=== PATIENT | male | born 1970 | race Caucasian/White ===

== ENCOUNTER 2016-09-26 11:32 | Inpatient (IN) | payer OTHER ==
[~2016-09-26 11:32] MED LIST: CIPR500T2 PO; VENTAER INH; Z.0.NO CURRENT MEDS
[2016-09-26] MEDS ORDERED: MORPHINE SULFATE 8 MG/ML INJ ONE (11:36)
[2016-09-26] MEDS ORDERED: ONDANSETRON HCL 4 MG/2 ML VIAL ONE (11:36)
[2016-09-26 11:45] VITALS: O2SAT 100; O2SAT 99
[2016-09-26] MEDS ORDERED: PROPOFOL 200 MG/20 ML AMP ONE (11:47)
[2016-09-26] MEDS ORDERED: LACTATED RINGER'S 1000 ML INJ 1,000 ML IV ONE (12:00)
[2016-09-26] MEDS ORDERED: PROPOFOL 200 MG/20 ML AMP IV ONE (12:00)
[2016-09-26] MEDS ORDERED: ONDANSETRON HCL 4 MG/2 ML VIAL IV PUSH ONE (12:00)
[2016-09-26] MEDS ORDERED: SODIUM CHLOR 0.9% 250 ML INJ 250 ML IV ONE (12:00)
[2016-09-26] MEDS ORDERED: SODIUM CHLORID 0.9% 500 ML INJ 500 ML IV ONE (12:00)
[2016-09-26 12:02] LABS: AUTOMATED NEUTROPHIL # 4.1 TH/MM3 (1.8-7.7); BASOPHIL # 0.1 TH/MM3 (0-0.2); BASOPHIL % 0.9 % (0.0-2.0); EOSINOPHIL # 0.1 TH/MM3 (0-0.4); EOSINOPHIL % 1.9 % (0.0-4.0); HEMATOCRIT 41.3 % (39.0-51.0); HEMO FLAGS DIFF FINAL; LYMPH % 31.8 % (9.0-44.0); LYMPHOCYTE # 2.3 TH/MM3 (1.0-4.8); MEAN CORPUSCULAR HEMOGLOBIN 28.4 PG (27.0-34.0); MEAN CORPUSCULAR HGB CONC 34.2 % (32.0-36.0); MONO % 8.2 % (0.0-8.0); NEUT % 57.2 % (16.0-70.0); PLATELET COUNT 203 TH/MM3 (150-450); RED BLOOD COUNT 4.98 MIL/MM3 (4.50-5.90); WHITE BLOOD COUNT 7.2 TH/MM3 (4.0-11.0)
[2016-09-26 12:04] LABS: I-STAT POTASSIUM 4.1 MMOL/L (3.5-4.9)
[2016-09-26 12:06] LABS: APTT (PATIENT) 21.3 SEC (24.3-30.1); PROTHROMBIN TIME - PATIENT 10.9 SEC (9.8-11.6)
[2016-09-26] MEDS ORDERED: DIPHTH/TETANUS/ACEL PERTUSSIS (BOOSTER) 0.5 ML VIAL/PFS IM ONE (12:20)
--- NOTE | 2016-09-26 12:22 | RADRPT ---
EXAM DATE/TIME: 09/26/2016 11:56 [facility] COMPARISON: No previous studies available for comparison. INDICATIONS : Trauma alert; fall down stairs. RADIATION DOSE: 69.15 CTDIvol (mGy) MEDICAL HISTORY : Non-responsive. SURGICAL HISTORY : Non-responsive. ENCOUNTER: Initial ACUITY: 1 day PAIN SCALE: 7/10 LOCATION: cranial TECHNIQUE: Multiple contiguous axial images were obtained of the head. Using automated exposure control and adj ustment of the mA and/or kV according to patient size, radiation dose was kept as low as reasonably a chievable to obtain optimal diagnostic quality images. FINDINGS: CEREBRUM: The ventricles are normal for age. No evidence of midline shift, mass lesion, hemorrhage or acute in farction. No extra-axial fluid collections are seen. POSTERIOR FOSSA: The cerebellum and brainstem are intact. The 4th ventricle is midline. The cerebellopontine angle i s unremarkable. EXTRACRANIAL: The visualized portion of the orbits is intact. SKULL: The calvaria is intact. No evidence of skull fracture. CONCLUSION: No acute intra-cranial injury Gerardo Webber MD on September 26, 2016 at 12:20 Board Certified Radiologist. This report was verified electronically.
--- NOTE | 2016-09-26 12:27 | RADRPT ---
EXAM DATE/TIME: 09/26/2016 11:56 [facility] COMPARISON: No previous studies available for comparison. INDICATIONS : Trauma alert; fall down stairs. RADIATION DOSE: .35.80 CTDIvol (mGy) MEDICAL HISTORY : Non-responsive. SURGICAL HISTORY : Non-responsive. ENCOUNTER: Initial ACUITY: 1 day PAIN SCALE: 5/10 LOCATION: neck TECHNIQUE: Volumetric scanning of the cervical spine was performed. Multiplanar reconstructions in the sagittal, coronal and oblique axial planes were performed. Using automated exposure control and adjustment o f the mA and/or kV according to patient size, radiation dose was kept as low as reasonably achievable to obtain optimal diagnostic quality images. FINDINGS: The C2 and 3 vertebral bodies and posterior elements are fused on a developmental basis. The alignmen t is satisfactory. There is no evidence of fracture. No bony canal stenosis is identified. Mild degen erative changes present with small endplate osteophytes most notably at C6-7 level. There is a broad left paracentral disc protrusion at C5-6 with moderate effacement of left lateral recess. No evidence of paraspinal hematoma CONCLUSION: No evidence of acute bony injury in the cervical spine. Degenerative changes and disc disease as desc ribed Gerardo Webber MD on September 26, 2016 at 12:21 Board Certified Radiologist. This report was verified electronically.
--- NOTE | 2016-09-26 12:29 | RADRPT ---
EXAM DATE/TIME: 09/26/2016 11:27 [facility] COMPARISON: No previous studies available for comparison. INDICATIONS : Trauma alert. Fall down stairs today. MEDICAL HISTORY : Unobtainable SURGICAL HISTORY : Unobtainable ENCOUNTER: Initial ACUITY: 1 day PAIN SCORE: 10/10 LOCATION: Right elbow FINDINGS: Single projection examination of the right elbow reveals a moderately displaced and comminuted elbow fracture with displacement of an olecranon fragment dorsally and proximally relative to the remainder of the ulna and coronoid and other metaphyseal fragments displaced slightly in a volar direction. Th e status of the humeral articular surfaces and the proximal radius are undetermined from this single projection CONCLUSION: Comminuted elbow fracture incompletely evaluated with this single film Gerardo Webber MD on September 26, 2016 at 12:26 Board Certified Radiologist. This report was verified electronically.
[2016-09-26] MEDS ORDERED: PROPOFOL 500 MG/50 ML IV ONE (12:30)
[2016-09-26] MEDS ORDERED: MORPHINE SULFATE 8 MG/ML INJ IV PUSH ONE (12:30)
--- NOTE | 2016-09-26 12:31 | RADRPT ---
EXAM DATE/TIME: 09/26/2016 11:27 [facility] COMPARISON: No previous studies available for comparison. INDICATIONS : Trauma alert. Fall down stairs today. MEDICAL HISTORY : Unobtainable SURGICAL HISTORY : Unobtainable ENCOUNTER: Initial ACUITY: 1 day PAIN SCORE: Non-responsive. LOCATION: Left shoulder FINDINGS: Examination of the left shoulder demonstrates no evidence of fracture or dislocation.. Bone minerali zation is normal. The acromioclavicular joint is intact. No foreign body is identified. CONCLUSION: Unremarkable single view examination of the left shoulder. Gerardo Webber MD on September 26, 2016 at 12:28 Board Certified Radiologist. This report was verified electronically.
--- NOTE | 2016-09-26 12:31 | PD ---
HPI Chief Complaint: trauma alert Time Seen by Provider: 12:11 Travel History International Travel<30 days: No Contact w/Intl Traveler<30days: No Traveled to known affect area: No History of Present Illness HPI The patient is a male who is approximately in his 40s, presents to the emergency department as a trauma alert. 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 EMS states the patient stilts for approximate 3 feet high and he fell down a stairwell that was approximately 10 feet in length and then was "pinned" against the wall. The patient complained of bilateral elbow pain and back pain. EMS states initially the patient had a priapism, however, air 1 states the patient did not have a priapism when they arrived. The patient does complain of bilateral elbow pain as well as low back pain, he denies any head pain or neck pain. He is able to move all 4 extremities, but has significant pain with movement of the upper extremities. The patient denies any chronic medical problems, medications, allergies, or surgeries. The patient denies any loss of consciousness with the fall and states he remembers falling. [facility] Past Medical History Medical History: Denies Significant Hx Past Surgical History Surgical History: No Previous Surgery Social History Alcohol Use: No Tobacco Use: No Substance Use: No Allergies-Medications (Allergen,Severity, Reaction): Coded Allergies: No Known Allergies (Unverified , 09/26/16) Review of Systems Except as stated in HPI: all other systems reviewed are Neg HENT: Positive: Neck Pain, No: Headaches Cardiovascular: No: Chest Pain or Discomfort Respiratory: No: Shortness of Breath Gastrointestinal: No: Nausea, Vomiting, Abdominal Pain Musculoskeletal: Positive: Pain Neurologic: No: Headache, Change in Mentation Physical Exam Narrative GENERAL: Approximately 42-year-old male who presents emergency department on a backboard with cervical collar in place. SKIN: Warm and dry. HEAD: Atraumatic. Normocephalic. EYES: Pupils equal and round. 3 mm bilateral and reactive. EOMs are intact. ENT: No nasal bleeding or discharge. Mucous membranes pink and moist. NECK: Trachea midline. No JVD. Cervical collar in place. CARDIOVASCULAR: Regular rate and rhythm. No murmur appreciated. Heart rate in the 80s. RESPIRATORY: No accessory muscle use. Clear to auscultation. Breath sounds equal bilaterally. GASTROINTESTINAL: Abdomen soft, non-tender, nondistended. No rebound tenderness. MUSCULOSKELETAL: Edema and swelling of the right elbow with tenderness. Patient is unable to extend the right elbow. Positive right radial pulse. Left elbow is tender, unable to flex completely, unable to extend secondary to pain. Positive left radial pulse. Patient is able to move the fingers of both hands. Patient is able to move his feet bilaterally. Back: Positive rectal temperature Dr. Packer. Mild tenderness the midline of the back. NEUROLOGICAL: Awake and alert. No obvious cranial nerve deficits. Motor grossly within normal limits. Normal speech. Sensation is intact to lower extremities bilaterally. Sensation is intact to soft touch she upper extremities. PSYCHIATRIC: Appropriate mood and affect; insight and judgment normal. Data Data Last Documented VS Vital Signs Date Time Temp Pulse Resp B/P Pulse Ox O2 Delivery O2 Flow Rate FiO2 09/26/16 11:45 99 Nasal Cannula 4.00 Orders Morphine Inj (Morphine Inj) (09/26/16 11:36) Ondansetron Inj (Zofran Inj) (09/26/16 11:36) Fentanyl Inj (Fentanyl Inj) (09/26/16 11:44) Propofol 200 Mg/20 Ml Inj (Diprivan 200 (09/26/16 11:47) I-Stat Profile (09/26/16 11:39) I-Stat Creatinine (09/26/16 11:39) Complete Blood Count With Diff (09/26/16 11:39) Prothrombin Time / Inr (Pt) (09/26/16 11:39) Act Partial Throm Time (Ptt) (09/26/16 11:39) Type And Screen (09/26/16 11:39) Chest, Single Ap (09/26/16 11:39) Pelvis, Ap Only (Routine) (09/26/16 11:39) Ct Brain W/O Iv Contrast(Rout) (09/26/16 11:39) Ct Cerv Spine W/O Contrast (09/26/16 11:39) Ct Abd/Pel W Iv Contrast(Rout) (09/26/16 11:39) Ct Thorax/ Chest W Iv Contrast (09/26/16 11:39) Ct Thor Spine W/O Contrast (09/26/16 11:39) Ct Lumb Spine W/O Contrast (09/26/16 11:39) Iv Access Insert/Monitor (09/26/16 11:39) Ecg Monitoring (09/26/16 11:39) Oximetry (09/26/16 11:39) Oxygen Administration (09/26/16 11:39) Elbow, Limited (Ap&Lat) (09/26/16 ) Shoulder, One View (09/26/16 ) Elbow, One View (09/26/16 ) Humerus, One View (09/26/16 ) Elbow, One View (09/26/16 ) Gtlv-Fau-Muplgp (Booster) Inj (Boostrix (09/26/16 12:20) Morphine Inj (Morphine Inj) (09/26/16 12:30) Sodium Chlor 0.9% 1000 Ml Inj (Ns 1000 M (09/26/16 13:00) Propofol 500 Mg/50 Ml Inj (Diprivan 500 (09/26/16 12:30) Fentanyl Inj (Fentanyl Inj) (09/26/16 12:30) Labs Laboratory Tests Test 09/26/16 11:40 White Blood Count 7.2 TH/MM3 Red Blood Count 4.98 MIL/MM3 Hemoglobin 14.1 GM/DL Bedside Hemoglobin 14.6 G/DL Hematocrit 41.3 % Bedside Hematocrit 43.0 % Mean Corpuscular Volume 83.0 FL Mean Corpuscular Hemoglobin 28.4 PG Mean Corpuscular Hemoglobin 34.2 % Concent Red Cell Distribution Width 13.0 % Platelet Count 203 TH/MM3 Mean Platelet Volume 9.1 FL Neutrophils (%) (Auto) 57.2 % Lymphocytes (%) (Auto) 31.8 % Monocytes (%) (Auto) 8.2 % Eosinophils (%) (Auto) 1.9 % Basophils (%) (Auto) 0.9 % Neutrophils # (Auto) 4.1 TH/MM3 Lymphocytes # (Auto) 2.3 TH/MM3 Monocytes # (Auto) 0.6 TH/MM3 Eosinophils # (Auto) 0.1 TH/MM3 Basophils # (Auto) 0.1 TH/MM3 CBC Comment DIFF FINAL Differential Comment Prothrombin Time 10.9 SEC Prothromb Time International 1.0 RATIO Ratio Activated Partial 21.3 SEC Thromboplast Time Bedside Sodium 138 MMOL/L Bedside Potassium 4.1 MMOL/L Bedside Chloride 98 MMOL/L Bedside Blood Urea Nitrogen 19 MG/DL Bedside Creatinine 0.8 MG/DL Bedside Glucose 280 MG/DL Blood Type B POSITIVE Antibody Screen NEGATIVE MDM Medical Screen Exam Complete: Yes Emergency Medical Condition: Yes Medical Record Reviewed: Yes (Gerardo Don unable to evaluate any old records) EKG Prior to Arrival: No Interpretation(s) Laboratory Tests Test 09/26/16 11:40 White Blood Count 7.2 TH/MM3 Red Blood Count 4.98 MIL/MM3 Hemoglobin 14.1 GM/DL Bedside Hemoglobin 14.6 G/DL Hematocrit 41.3 % Bedside Hematocrit 43.0 % Mean Corpuscular Volume 83.0 FL Mean Corpuscular Hemoglobin 28.4 PG Mean Corpuscular Hemoglobin 34.2 % Concent Red Cell Distribution Width 13.0 % Platelet Count 203 TH/MM3 Mean Platelet Volume 9.1 FL Neutrophils (%) (Auto) 57.2 % Lymphocytes (%) (Auto) 31.8 % Monocytes (%) (Auto) 8.2 % Eosinophils (%) (Auto) 1.9 % Basophils (%) (Auto) 0.9 % Neutrophils # (Auto) 4.1 TH/MM3 Lymphocytes # (Auto) 2.3 TH/MM3 Monocytes # (Auto) 0.6 TH/MM3 Eosinophils # (Auto) 0.1 TH/MM3 Basophils # (Auto) 0.1 TH/MM3 CBC Comment DIFF FINAL Differential Comment Prothrombin Time 10.9 SEC Prothromb Time International 1.0 RATIO Ratio Activated Partial 21.3 SEC Thromboplast Time Bedside Sodium 138 MMOL/L Bedside Potassium 4.1 MMOL/L Bedside Chloride 98 MMOL/L Bedside Blood Urea Nitrogen 19 MG/DL Bedside Creatinine 0.8 MG/DL Bedside Glucose 280 MG/DL Blood Type B POSITIVE X-ray left elbow reveals dislocation with radial head fracture X-ray right elbow reveals olecranon fracture Chest x-ray unremarkable CT the brain negative CT cervical spine unremarkable CT thoracic spine unremarkable CT lumbar spine unremarkable x-ray CT thorax negative for acute trauma CT abdomen and pelvis negative for acute trauma Differential Diagnosis Differential diagnosis includes multisystem trauma, right elbow fracture, left elbow fracture, dislocation, contusion, spinal cord injury, cervical fracture, vertebral fracture, intracranial hemorrhage, concussion, closed head injury. Narrative Course ATLS protocol was followed. The trauma surgeon, Dr. Packer, was present when the patient arrived. The patient's airway, breathing, and circulation were intact. 2 large-bore IVs were established, labs are drawn and sent, and the patient was placed on cardiac telemetry monitoring and continuous pulse oximetry monitoring. IV fluids were started, the patient was administered morphine and Zofran for his symptoms. Chest x-ray, pelvis x-ray, left shoulder x-ray, bilateral elbow x-rays were obtained. The patient had a partial dislocation/subluxation the left elbow which was reduced with conscious sedation and a long arm splint was applied. The right elbow was also fracture, a right long-arm splint was applied. Positive radial pulses after splinting and reduction. Chest x-ray was unremarkable. Pelvis x-ray was unremarkable. The patient was readministered morphine and fentanyl for continuing pain. The patient then went to the CT suite with Dr. Packer for CT the brain, cervical spine, thorax, abdomen/pelvis, thoracic spine, and lumbar spine. The patient will be admitted to the trauma service. A call was placed the on-call orthopedist. Trauma Alert - Level One Trauma Alert Level One: Full trauma team activate Time Surgeon Summoned: 10:43 Physician Communication The patient will be admitted to the trauma service. A call was placed to the on -call orthopedist. Diagnosis Diagnosis: Primary Impression: Elbow fracture, right Qualified Code: S42.401A - Elbow fracture, right, closed, initial encounter Additional Impression: Left elbow fracture Qualified Code: S42.402A - Left elbow fracture, closed, initial encounter Admitting Physician Requests: Admit Condition: Stable Jesse Jacobson MD Sep 26, 2016 12:31
--- NOTE | 2016-09-26 12:31 | RADRPT ---
EXAM DATE/TIME: 09/26/2016 11:59 [facility] COMPARISON: No previous studies available for comparison. INDICATIONS : Trauma alert; fall down stairs. IV CONTRAST: 100 cc Omnipaque 350 (iohexol) IV ORAL CONTRAST: No oral contrast ingested. RADIATION DOSE: 11.42 CTDIvol (mGy) MEDICAL HISTORY : Non-responsive. SURGICAL HISTORY : Non-responsive. ENCOUNTER: Initial ACUITY: 1 day PAIN SCALE: 5/10 LOCATION: abdomen TECHNIQUE: Volumetric scanning of the abdomen and pelvis was performed. Using automated exposure control and ad justment of the mA and/or kV according to patient size, radiation dose was kept as low as reasonably achievable to obtain optimal diagnostic quality images. FINDINGS: LOWER LUNGS: The visualized lower lungs are clear. LIVER: Homogeneous density without lesion. There is no dilation of the biliary tree. No calcified gallston es. SPLEEN: Normal size without lesion. PANCREAS: Within normal limits. KIDNEYS: Normal in size and shape. There is no mass, stone or hydronephrosis. ADRENAL GLANDS: Within normal limits. VASCULAR: There is no aortic aneurysm. BOWEL/MESENTERY: The stomach, small bowel, and colon demonstrate no acute abnormality. There is no free intraperitone al air or fluid. ABDOMINAL WALL: Within normal limits. RETROPERITONEUM: There is no lymphadenopathy. BLADDER: No wall thickening or mass. REPRODUCTIVE: Within normal limits. INGUINAL: There is no lymphadenopathy or hernia. MUSCULOSKELETAL: Within normal limits for patient age. CONCLUSION: Normal examination. Davie Ferrell MD on September 26, 2016 at 12:29 Board Certified Radiologist. This report was verified electronically.
--- NOTE | 2016-09-26 12:34 | RADRPT ---
EXAM DATE/TIME: 09/26/2016 11:27 [facility] COMPARISON: No previous studies available for comparison. INDICATIONS : Chest pain. Trauma alert. Fall down stairs today MEDICAL HISTORY : Unobtainable SURGICAL HISTORY : Unobtainable ENCOUNTER: Initial ACUITY: 1 day PAIN SCORE: Non-responsive. LOCATION: Bilateral chest FINDINGS: A single view of the chest demonstrates the lungs to be symmetrically aerated without evidence of mas s, infiltrate or effusion. The cardiomediastinal contours are unremarkable. Osseous structures are intact. CONCLUSION: Normal examination. Davie Ferrell MD on September 26, 2016 at 12:27 Board Certified Radiologist. This report was verified electronically.
--- NOTE | 2016-09-26 12:36 | RADRPT ---
EXAM DATE/TIME: 09/26/2016 11:59 [facility] COMPARISON: No previous studies available for comparison. INDICATIONS : Trauma alert; fall down stairs. RADIATION DOSE: ; Reconstructed from previous dataset MEDICAL HISTORY : Non-responsive. SURGICAL HISTORY : Non-responsive. ENCOUNTER: Initial ACUITY: 1 day PAIN SCALE: 7/10 LOCATION: Bilateral Lumbar. TECHNIQUE: Volumetric scanning of the lumbar spine was performed. Multiplanar reconstructions in the sagittal, coronal and oblique axial planes were performed. Using automated exposure control and adjustment of the mA and/or kV according to patient size, radiation dose was kept as low as reasonably achievable t o obtain optimal diagnostic quality images. FINDINGS: VERTEBRAE: Normal vertebral body height. ALIGNMENT: No evidence of subluxation. T12-L1: The thecal sac has a normal diameter. No evidence of disc bulge or protrusion. The neural foramina are patent bilaterally. L1-L2: The thecal sac has a normal diameter. No evidence of disc bulge or protrusion. The neural foramina are patent bilaterally. L2-L3: The thecal sac has a normal diameter. No evidence of disc bulge or protrusion. The neural foramina are patent bilaterally. L3-L4: The thecal sac has a normal diameter. No evidence of disc bulge or protrusion. The neural foramina are patent bilaterally. L4-L5: The thecal sac has a normal diameter. No evidence of disc bulge or protrusion. The neural foramina are patent bilaterally. L5-S1: The thecal sac has a normal diameter. No evidence of disc bulge or protrusion. The neural foramina are patent bilaterally. CONCLUSION: Normal examination. Davie Ferrell MD on September 26, 2016 at 12:34 Board Certified Radiologist. This report was verified electronically.
--- NOTE | 2016-09-26 12:38 | RADRPT ---
EXAM DATE/TIME: 09/26/2016 12:01 [facility] COMPARISON: No previous studies available for comparison. INDICATIONS : Trauma alert; fall down stairs. IV CONTRAST: 100 cc Omnipaque 350 (iohexol) IV RADIATION DOSE: 11.42 CTDIvol (mGy) MEDICAL HISTORY : Non-responsive. SURGICAL HISTORY : Non-responsive. ENCOUNTER: Initial ACUITY: 1 day PAIN SCALE: 5/10 LOCATION: chest TECHNIQUE: Volumetric scanning of the chest was performed. Using automated exposure control and adjustment of t he mA and/or kV according to patient size, radiation dose was kept as low as reasonably achievable to obtain optimal diagnostic quality images. FINDINGS: LUNGS: There is no consolidation or pneumothorax. No concerning pulmonary nodule is visualized. PLEURA: There is no pleural thickening or pleural effusion. MEDIASTINUM: The heart and great vessels demonstrate no acute abnormality. There is no mediastinal or hilar lymph adenopathy. AXILLAE: Within normal limits. No lymphadenopathy. SKELETAL: Within normal limits for patient age. MISCELLANEOUS: The visualized upper abdominal organs demonstrate no acute abnormality. CONCLUSION: Normal examination. Davie Ferrell MD on September 26, 2016 at 12:37 Board Certified Radiologist. This report was verified electronically.
--- NOTE | 2016-09-26 12:41 | RADRPT ---
EXAM DATE/TIME: 09/26/2016 11:27 [facility] COMPARISON: No previous studies available for comparison. INDICATIONS : Trauma alert. Patient fell down stairs today MEDICAL HISTORY : Unobtainable SURGICAL HISTORY : Unobtainable ENCOUNTER: Initial ACUITY: 1 day PAIN SCORE: Non-responsive. LOCATION: Pelvis FINDINGS: A single frontal view of the pelvis demonstrates no evidence of fracture. The bony pelvic ring is in tact. Bony mineralization is normal. The soft tissues are intact. CONCLUSION: Unremarkable examination of the pelvis. Davie Ferrell MD on September 26, 2016 at 12:40 Board Certified Radiologist. This report was verified electronically.
--- NOTE | 2016-09-26 12:41 | RADRPT ---
EXAM DATE/TIME: 09/26/2016 11:27 [facility] COMPARISON: No previous studies available for comparison. INDICATIONS : Trauma alert. Fall down stairs today. Elbow pain. MEDICAL HISTORY : Unobtainable SURGICAL HISTORY : Unobtainable ENCOUNTER: Initial ACUITY: 1 day PAIN SCORE: Non-responsive. LOCATION: Left elbow FINDINGS & CONCLUSION: Two view examination of the left elbow demonstrates the humerus is anteriorly displaced from the olec ranon. There is a markedly comminuted radial fracture involving the radial head. The radial head is posteriorly displaced from the capitellum. There is a large joint effusion. Davie Ferrell MD on September 26, 2016 at 12:38 Board Certified Radiologist. This report was verified electronically.
--- NOTE | 2016-09-26 12:42 | RADRPT ---
EXAM DATE/TIME: 09/26/2016 11:27 [facility] COMPARISON: No previous studies available for comparison. INDICATIONS : Trauma alert. Fall down stairs today MEDICAL HISTORY : Unobtainable SURGICAL HISTORY : Unobtainable ENCOUNTER: Initial ACUITY: 1 day PAIN SCORE: Non-responsive. LOCATION: Left humerus FINDINGS & CONCLUSION: Single view of the left humerus demonstrates the humerus is intact. The radial head is laterally sub luxed from the capitellum. Humeral head and neck are unremarkable. Davie Ferrell MD on September 26, 2016 at 12:39 Board Certified Radiologist. This report was verified electronically.
--- NOTE | 2016-09-26 12:43 | RADRPT ---
EXAM DATE/TIME: 09/26/2016 11:27 [facility] COMPARISON: No previous studies available for comparison. INDICATIONS : Post reduction left elbow. MEDICAL HISTORY : Unobtainable SURGICAL HISTORY : Unobtainable ENCOUNTER: Initial ACUITY: 1 day PAIN SCORE: Non-responsive. LOCATION: Left elbow FINDINGS & CONCLUSION: Single view of the left elbow demonstrates there is a radial head fracture. There is some widening b etween the distal humerus and the olecranon. There is a large joint effusion. The radial head fract ure is markedly comminuted. Davie Ferrell MD on September 26, 2016 at 12:38 Board Certified Radiologist. This report was verified electronically.
--- NOTE | 2016-09-26 12:43 | RADRPT ---
EXAM DATE/TIME: 09/26/2016 11:59 [facility] COMPARISON: No previous studies available for comparison. INDICATIONS : Trauma alert; fall down stairs. RADIATION DOSE: ; Reconstructed from previous dataset MEDICAL HISTORY : Non-responsive. SURGICAL HISTORY : Non-responsive. ENCOUNTER: Initial ACUITY: 1 day PAIN SCALE: 7/10 LOCATION: Bilateral thoracic. TECHNIQUE: Volumetric scanning of the thoracic spine was performed. Multiplanar reconstructions in the sagittal , coronal and oblique axial planes were performed. Using automated exposure control and adjustment o f the mA and/or kV according to patient size, radiation dose was kept as low as reasonably achievable to obtain optimal diagnostic quality images. FINDINGS: The vertebral bodies of the thoracic spine are in normal alignment without evidence of subluxation. Vertebral body height is maintained. No fractures are seen. T1-T2: Normal. T2-T3: The thecal sac has a normal diameter. No evidence of disc bulge or protrusion. T3-T4: The thecal sac has a normal diameter. No evidence of disc bulge or protrusion. T4-T5: The thecal sac has a normal diameter. No evidence of disc bulge or protrusion. T5-T6: The thecal sac has a normal diameter. No evidence of disc bulge or protrusion. T6-T7: The thecal sac has a normal diameter. No evidence of disc bulge or protrusion. T7-T8: The thecal sac has a normal diameter. No evidence of disc bulge or protrusion. T8-T9: The thecal sac has a normal diameter. No evidence of disc bulge or protrusion. T9-T10: The thecal sac has a normal diameter. No evidence of disc bulge or protrusion. T10-T11: The thecal sac has a normal diameter. No evidence of disc bulge or protrusion. T11-T12: The thecal sac has a normal diameter. No evidence of disc bulge or protrusion. T12-L1: The thecal sac has a normal diameter. No evidence of disc bulge or protrusion. CONCLUSION: Normal examination. Davie Ferrell MD on September 26, 2016 at 12:41 Board Certified Radiologist. This report was verified electronically.
[2016-09-26] MEDS ORDERED: SODIUM CHLOR 0.9% 1000 ML INJ 1,000 ML IV SCH ×2 (13:00→15:00)
[2016-09-26 13:30] VITALS: BP 168/85; PULSE 78; RESP 16; O2SAT 99
[2016-09-26] MEDS ORDERED: MISCELLANEOUS NURSING INFORMATION XX SCH (14:00)
[2016-09-26] MEDS ORDERED: CHLORHEXIDINE GLUCONATE 2 % 1 PACK (2 CLOTHS) TOP PRN (14:00)
[2016-09-26] MEDS ORDERED: SODIUM CHLORIDE 0.9% FLUSH 5 ML FLUSH IVF PRN (14:00)
[2016-09-26 14:50] VITALS: BP 168/76; PULSE 84; RESP 16; TEMP 99.5; O2SAT 100
[2016-09-26] MEDS ORDERED: PANTOPRAZOLE SODIUM 40 MG VIAL IVP SCH (15:00)
[2016-09-26] MEDS ORDERED: ONDANSETRON HCL 4 MG/2 ML VIAL IV PRN (15:00)
[2016-09-26] MEDS ORDERED: VANCOMYCIN HCL 1000 MG VIAL ONE (16:45)
[2016-09-26] MEDS ORDERED: ceFAZolin 2 GM PREMIX 50 ML ONE (16:45)
[2016-09-26] MEDS ORDERED: GENTAMICIN SULFATE 80 MG/2 ML VIAL ONE ×2 (16:59→20:25)
[2016-09-26] MEDS ORDERED: fentaNYL CITRATE 250 MCG/5 ML AMP ONE ×2 (20:05)
--- NOTE | 2016-09-26 20:24 | MH ---
cc: YULIA YOUNGER DATE OF ADMISSION: 09/26/2016 REASON FOR ADMISSION: Trauma alert, fall, extremity fracture. 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 The patient was brought in as a trauma alert secondary to extremity deformities and the possibility of neurological involvement. The patient came in on a backboard and with a cervical collar immobilized and complaining of pain to his upper extremities. He also complains of pain to his back. He denies chest pain, shortness of breath. No loss of consciousness. No paresthesia. PAST MEDICAL HISTORY: Negative. PAST SURGICAL HISTORY Negative. MEDICATIONS: He is on no chronic medication. ALLERGIES: NO KNOWN DRUG ALLERGIES. SOCIAL HISTORY: He does not smoke or drink alcohol. FAMILY HISTORY Noncontributory. REVIEW OF SYSTEMS: His review of systems is significant for above. All other 10-point review negative. PHYSICAL EXAMINATION: GENERAL: On exam the patient is lying on a stretcher in distress secondary to pain. HEAD, EYES, EARS, NOSE, THROAT: His pupils are three equal and reactive. NECK: Trachea is midline. His neck is in a cervical collar. Neck nontender. LUNGS: Respirations clear. CARDIOVASCULAR: Regular. GASTROINTESTINAL: Abdomen soft and nontender. MUSCULOSKELETAL: He has tenderness over his right elbow with swelling. He has tenderness to his left forearm and tenderness to his left elbow with swelling. NEUROLOGIC: Grossly intact. BACK: No step-offs. No deformities. RECTAL: Good tone. No gross blood. LABORATORY DATA: The patient's hemoglobin is 14, hematocrit 43. IMAGING STUDIES: CT of the head is negative. CT of the C-spine shows no fractures. CT of the thorax negative. CT of the abdomen and pelvis: No visceral injury. CT of the thoracic spine: No fractures. CT of the lumbar spine: No fracture. Left elbow revealed a complex fracture. Right elbow reveals a complex fracture. ASSESSMENT: This is a patient who is status post fall with upper extremity injuries. Orthopedics has been consulted for this. He will be taken to the operating room for management. Following this, he will be managed on the medical/surgical unit. Will monitor his hemodynamics, provide pain management and monitor his neurological status. MD JEANMARIE Dumas/[place] /7:46 PM /8:09 PM
[2016-09-26] MEDS: DOCUSATE SODIUM 100 MG CAP PO SCH (21:00)
[2016-09-26] MEDS: BACITRACIN TOP OINT 15 GM TUBE TOP SCH (21:00)
--- NOTE | 2016-09-26 22:56 | RADRPT ---
EXAM DATE/TIME: 09/26/2016 22:14 [facility] COMPARISON: No previous studies available for comparison. INDICATIONS : Open reduction internal fixation of the right elbow. MEDICAL HISTORY : None. SURGICAL HISTORY : None. ENCOUNTER: Subsequent ACUITY: 1 day PAIN SCORE: Non-responsive. LOCATION: Right elbow. FINDINGS: Plate is seen bridging the olecranon fracture. Cortical lag screws are seen bridging the fracture th e radial head. Alignment is near-anatomic. CONCLUSION: Status post ORIF in reasonable alignment. Mikey Maria MD FACR on September 26, 2016 at 22:54 Board Certified Radiologist. This report was verified electronically.
--- NOTE | 2016-09-26 23:00 | RADRPT ---
EXAM DATE/TIME: 09/26/2016 19:54 [facility] COMPARISON: ELBOW LEFT LIMITED (AP & LAT), September 26, 2016, 11:27. INDICATIONS : Open reduction internal fixation of the left elbow. MEDICAL HISTORY : None. SURGICAL HISTORY : None. ENCOUNTER: Subsequent ACUITY: 1 day PAIN SCORE: Non-responsive. LOCATION: Left elbow. FINDINGS: Four cortical lag screws are seen bridging the fracture of the radial head. Alignment is anatomic. A lateral projection is not provided. CONCLUSION: Anatomic alignment in a single projection. Mikey Maria MD FACR on September 26, 2016 at 22:52 Board Certified Radiologist. This report was verified electronically.
[2016-09-26] MEDS ORDERED: MORPHINE SULFATE 4 MG/ML INJ ONE (23:15)
--- NOTE | 2016-09-26 23:22 | PD.OP ---
Operative Report Date of Surgery: Sep 26, 2016 Preoperative Diagnosis: (1) Left elbow fracture (2) Elbow fracture, right Postoperative Diagnosis: Procedure: 1) ORIF left elbow benita-articular with comminuted radial head fracture 2) ORIF right elbow high comminuted proximal ulna fracture dislocation and radial head fracture Anesthesia: General Surgeon: Dr. Bebeto Elizabeth Decommissioning Well Site Manager(s): MOISES Spring Operation and Findings: See Dictation Mumtaz Santo Sep 26, 2016 23:22
[2016-09-26] MEDS ORDERED: DO NOT ADM ANY ANTICOAGULANT DRUGS XX PRN (23:30)
[2016-09-27] VITALS (9 sets, daily range): BP systolic 125–164; BP diastolic 71–84; PULSE 80–110; RESP 17–18; TEMP 98.8–100.9; O2SAT 95–100
[2016-09-27] MEDS ORDERED: ceFAZolin 2 GM PREMIX 50 ML IV SCH
[2016-09-27] MEDS ORDERED: oxyCODONE/ACETAMINOPHEN 5 MG/325 MG TAB PO PRN
[2016-09-27] MEDS ORDERED: NALOXONE HCL 0.4 MG/ML AMP IV PRN
[2016-09-27] MEDS ORDERED: Post-op Orders (for Pharmacy) MISC XX ONE
[2016-09-27] MEDS ORDERED: MISCELLANEOUS NURSING INFORMATION XX PRN
[2016-09-27] MEDS ORDERED: diphenhydrAMINE HCL 25 MG CAP PO PRN
[2016-09-27] MEDS ORDERED: SODIUM CHLORIDE 0.9% FLUSH 5 ML FLUSH IVF PRN
[2016-09-27] MEDS ORDERED: LABETALOL HCL 100 MG/20 ML VIAL ONE (00:01)
[2016-09-27] MEDS: ENALAPRILAT 1.25 MG/ML VIAL IV PRN (00:15)
[2016-09-27] MEDS ORDERED: MORPHINE SULFATE 4 MG/ML INJ ONE (00:27)
[2016-09-27] MEDS: MORPHINE SULFATE 30 MG/30 ML PCA IV SCH ×2 (00:35→12:32)
[2016-09-27] MEDS: ceFAZolin 2 GM PREMIX 50 ML IV SCH ×3 (03:23→17:28)
[2016-09-27] MEDS: CHLORHEXIDINE GLUCONATE 2 % 1 PACK (2 CLOTHS) TOP SCH (04:00)
[2016-09-27 05:15] LABS: BICARBONATE 25.3 MEQ/L (21.0-32.0)
[2016-09-27 05:21] LABS: AUTOMATED NEUTROPHIL # 9.8 TH/MM3 (1.8-7.7); BASOPHIL # 0.5 TH/MM3 (0-0.2); BASOPHIL % 4.2 % (0.0-2.0); EOSINOPHIL % 0.1 % (0.0-4.0); HEMATOCRIT 36.5 % (39.0-51.0); LYMPH % 2.5 % (9.0-44.0); LYMPHOCYTE # 0.3 TH/MM3 (1.0-4.8); MEAN CELL VOLUME 83.7 FL (80.0-100.0); MEAN CORPUSCULAR HEMOGLOBIN 28.3 PG (27.0-34.0); MEAN CORPUSCULAR HGB CONC 33.8 % (32.0-36.0); MONO % 10.1 % (0.0-8.0); NEUT % 83.1 % (16.0-70.0); PLATELET COUNT 211 TH/MM3 (150-450); RED BLOOD COUNT 4.36 MIL/MM3 (4.50-5.90); WHITE BLOOD COUNT 11.8 TH/MM3 (4.0-11.0)
[2016-09-27 05:54] LABS: HEMO FLAGS AUTO DIFF
[2016-09-27] MEDS: PCA - TOTAL MG MORPHINE DELIVERED PER SHIFT SCH ×3 (06:00→22:00)
--- NOTE | 2016-09-27 06:03 | RADRPT ---
EXAM DATE/TIME: 09/27/2016 04:41 [facility] COMPARISON: CHEST SINGLE AP, September 26, 2016, 11:27. INDICATIONS : Shortness of breath, possible pulmonary disease. MEDICAL HISTORY : None. SURGICAL HISTORY : ORIF Bilateral Elbows ENCOUNTER: Subsequent ACUITY: 2 days PAIN SCORE: 0/10 LOCATION: Bilateral chest FINDINGS: The cardiac silhouette is enlarged in transverse diameter. The lungs are free of acute parenchymal op acity. No effusions are identified. Osseous structures are intact. CONCLUSION: Cardiomegaly. No acute cardiopulmonary disease. Zohaib Mota MD on September 27, 2016 at 6:01 Board Certified Radiologist. This report was verified electronically.
[2016-09-27] MEDS: oxyCODONE/ACETAMINOPHEN 5 MG/325 MG TAB PO PRN ×2 (08:04→17:28)
[2016-09-27] MEDS: DOCUSATE SODIUM 100 MG CAP PO SCH ×2 (08:04→21:00)
[2016-09-27] MEDS ORDERED: GLUCAGON 1 MG/ML VIAL OTHER PRN (08:15)
[2016-09-27] MEDS ORDERED: DEXTROSE 50% IN WATER 50 ML VIAL(D50) IV PUSH PRN (08:15)
[2016-09-27] MEDS: BACITRACIN TOP OINT 15 GM TUBE TOP SCH (09:00)
[2016-09-27] MEDS: SODIUM CHLORIDE 0.9% FLUSH 5 ML FLUSH IVF SCH ×2 (09:00→21:00)
[2016-09-27 10:04] LABS: BANDS 12 % (0-6); NEUTROPHIL # MANUAL DIFF 10.7 TH/MM3 (1.8-7.7); POLYS (SEG NEUTROPHILS) 79 % (16-70); WBC DIFF SAMPLE 100
[2016-09-27 10:05] LABS: PLATELET ESTIMATE SMEAR NORMAL (NORMAL); PLATELET MORPHOLOGY NORMAL (NORMAL); SCAN/DIFF FINAL DIFF MANUAL
[2016-09-27] MEDS: INSULIN ASPART SUPPLEMENTAL SCALE SQ SCH ×3 (11:00→21:00)
--- NOTE | 2016-09-27 11:30 | PD.ORT.PN ---
Subjective Subjective Remarks Patient sitting up comfortably. Pain controlled. Family at bedside. Objective Vitals Vital Signs Date Time Temp Pulse Resp B/P Pulse Ox O2 Delivery O2 Flow Rate FiO2 09/27/16 09:19 97 Nasal Cannula 3.00 09/27/16 07:50 100.2 80 18 162/77 96 09/27/16 03:45 99.4 92 17 133/72 100 09/27/16 01:00 100.0 93 17 143/84 98 09/27/16 00:45 100.1 96 16 159/91 100 Nasal Cannula 2 09/27/16 00:35 14 09/27/16 00:30 89 16 155/92 98 Nasal Cannula 2 09/27/16 00:15 93 16 162/93 99 Nasal Cannula 2 09/27/16 00:00 94 14 171/82 100 Nasal Cannula 2 09/26/16 23:45 94 14 181/94 100 Nasal Cannula 2 09/26/16 23:32 89 14 172/81 100 Nasal Cannula 2 09/26/16 23:15 91 14 148/84 100 Nasal Cannula 2 09/26/16 23:04 98.1 94 18 147/80 99 Nasal Cannula 2 09/26/16 14:50 99.5 84 16 168/76 100 09/26/16 13:30 78 16 168/85 99 Nasal Cannula 2 09/26/16 11:45 99 Nasal Cannula 4.00 09/26/16 11:45 100 4.00 I/O 09/26/16 09/26/16 09/26/16 09/27/16 09/27/16 09/27/16 07:00 15:00 23:00 07:00 15:00 23:00 Intake Total 0 ml 2960 ml Output Total 0 ml 1400 ml Balance 0 ml 1560 ml Intake Oral 0 ml 960 ml IV Total 200 ml Other 1800 ml Output Urine Total 0 ml 1200 ml Estimated Blood Loss 200 ml Bladder Scan Volume Amount 999 ml # Bowel Movements 0 0 Result Diagram: 09/27/1640709/27/16407 Other Results Laboratory Tests Test 09/26/16 11:40 Prothrombin Time 10.9 SEC (9.8-11.6) Prothromb Time International 1.0 RATIO Ratio Imaging Last 24 hours Impressions Thoracic Spine CT 09/26/16 1139 Signed Impressions: Service Date/Time: Monday, September 26, 2016 11:59 - CONCLUSION: Normal examination. Davie Ferrell MD Pelvis X-Ray 09/26/16 1139 Signed Impressions: Service Date/Time: Monday, September 26, 2016 11:27 - CONCLUSION: Unremarkable examination of the pelvis. Davie Ferrell MD Lumbar Spine CT 09/26/16 1139 Signed Impressions: Service Date/Time: Monday, September 26, 2016 11:59 - CONCLUSION: Normal examination. Davie Ferrell MD Head CT 09/26/169 Signed Impressions: Service Date/Time: Monday, September 26, 2016 11:56 - CONCLUSION: No acute intra-cranial injury Gerardo Webber MD Chest X-Ray 09/26/[id number] Signed Impressions: Service Date/Time: Monday, September 26, 2016 11:27 - CONCLUSION: Normal examination. Davie Ferrell MD Chest CT 09/26/16 1139 Signed Impressions: Service Date/Time: Monday, September 26, 2016 12:01 - CONCLUSION: Normal examination. Davie Ferrell MD Cervical Spine CT 09/26/16 1139 Signed Impressions: Service Date/Time: Monday, September 26, 2016 11:56 - CONCLUSION: No evidence of acute bony injury in the cervical spine. Degenerative changes and disc disease as described Gerardo Webber MD Abdomen/Pelvis CT 09/26/16 1139 Signed Impressions: Service Date/Time: Monday, September 26, 2016 11:59 - CONCLUSION: Normal examination. Davie Ferrell MD Procedures 1) ORIF left elbow benita-articular with comminuted radial head fracture 2) ORIF right elbow high comminuted proximal ulna fracture dislocation and radial head fracture Objective Remarks Right elbow splint and preston wrap in place C/D/I numbness/tingling sensation to 4th and 5th digits with minimal movement good cap refill good forward flexion of right shoulder Left elbow splint and preston wrap in place C/D/I + sensation good movement of digits good cap refill unable to forward flex left shoulder Assessment & Plan Ortho Post Op Day #: 1 Problem List: Assessment and Plan 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
[2016-09-27] MEDS: DEXT 5%-NACL 0.45% 1000 ML INJ 1,000 ML IV SCH ×2 (12:30)
--- NOTE | 2016-09-27 12:47 | HHI.PR ---
Subjective Subjective Notes PTD: 1 Objective Vitals/I&O Vital Signs Date Time Temp Pulse Resp B/P Pulse Ox O2 Delivery O2 Flow Rate FiO2 09/27/16 12:00 99.8 85 18 164/77 98 09/27/16 09:19 Nasal Cannula 3.00 Labs Laboratory Tests Test 09/27/16 04:08 White Blood Count 11.8 Red Blood Count 4.36 Hemoglobin 12.4 Hematocrit 36.5 Mean Corpuscular Volume 83.7 Mean Corpuscular Hemoglobin 28.3 Mean Corpuscular Hemoglobin 33.8 Concent Red Cell Distribution Width 13.0 Platelet Count 211 Mean Platelet Volume 9.4 Neutrophils (%) (Auto) 83.1 Lymphocytes (%) (Auto) 2.5 Monocytes (%) (Auto) 10.1 Eosinophils (%) (Auto) 0.1 Basophils (%) (Auto) 4.2 Neutrophils # (Auto) 9.8 Lymphocytes # (Auto) 0.3 Monocytes # (Auto) 1.2 Eosinophils # (Auto) 0.0 Basophils # (Auto) 0.5 CBC Comment AUTO DIFF Differential Total Cells 100 Counted Neutrophils % (Manual) 79 Band Neutrophils % 12 Lymphocytes % 5 Monocytes % 4 Neutrophils # (Manual) 10.7 Differential Comment FINAL DIFF MANUAL Platelet Estimate NORMAL Platelet Morphology Comment NORMAL Sodium Level 134 Potassium Level 4.0 Chloride Level 97 Carbon Dioxide Level 25.3 Anion Gap 12 Blood Urea Nitrogen 14 Creatinine 1.16 Estimat Glomerular Filtration 69 Rate Random Glucose 333 Calcium Level 8.2 Chloe Medina Sep 27, 2016 12:47
--- NOTE | 2016-09-27 15:23 | PD.CONS ---
HPI Service [facility] Consult Requested By MOISES Bonilla Reason for Consult S/P trauma - fall Elevated BGM Will need assistance with medical management and diabetic teaching. Primary Care Physician None Diagnoses: (1) Elbow fracture, right (2) Left elbow fracture (3) Diabetes mellitus History of Present Illness The patient is a 45-year-old previously healthy male who presented to the emergency department as a TRAUMA ALERT. 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 He had bilateral elbow fractures. ORIF was done on both elbows. The patient was noted to have elevated glucose. Medical consultation was requested for management of diabetes. The patient denies any history of any medical problems including heart disease, diabetes, high blood pressure, hyperlipidemia. Other than the pain in his arms, he has no complaints at this time. He denies polyuria and polydipsia. Review of Systems Constitutional: DENIES: Fever, Chills, Night Sweats Endocrine: DENIES: Polydipsia, Polyuria Eyes: DENIES: Blurred vision, Vision loss Ears, nose, mouth, throat: DENIES: Hearing loss Respiratory: DENIES: Cough, Wheezing, Sputum production, Shortness of breath Cardiovascular: DENIES: Chest pain, Palpitations, Dyspnea on Exertion, Lower Extremity Edema Gastrointestinal: DENIES: Abdominal pain, Constipation, Diarrhea, Nausea, Vomiting Genitourinary: DENIES: Urinary frequency, Urinary incontinence, Urgency, Hematuria, Dysuria, Nocturia Musculoskeletal: COMPLAINS OF: Joint pain, Muscle aches Integumentary: DENIES: Pruritus, Rash Hematologic/lymphatic: DENIES: Bruising Neurologic: DENIES: Headache Past Family Social History Allergies: Coded Allergies: No Known Allergies (Verified , 07/30/10) Past Medical History None Past Surgical History ORIF left elbow fracture 09/26/16 ORIF right elbow fracture 09/26/16 Reported Medications None Family History Denies any family history of medical problems including diabetes, heart disease. Social History Denies alcohol, tobacco, or illicit drug use. Physical Exam Vital Signs Vital Signs Date Time Temp Pulse Resp B/P Pulse Ox O2 Delivery O2 Flow Rate FiO2 09/27/16 13:21 17 09/27/16 12:00 99.8 85 18 164/77 98 09/27/16 09:19 97 Nasal Cannula 3.00 09/27/16 07:50 100.2 80 18 162/77 96 09/27/16 03:45 99.4 92 17 133/72 100 09/27/16 01:00 100.0 93 17 143/84 98 09/27/16 00:45 100.1 96 16 159/91 100 Nasal Cannula 2 09/27/16 00:35 14 09/27/16 00:30 89 16 155/92 98 Nasal Cannula 2 09/27/16 00:15 93 16 162/93 99 Nasal Cannula 2 09/27/16 00:00 94 14 171/82 100 Nasal Cannula 2 09/26/16 23:45 94 14 181/94 100 Nasal Cannula 2 09/26/16 23:32 89 14 172/81 100 Nasal Cannula 2 09/26/16 23:15 91 14 148/84 100 Nasal Cannula 2 09/26/16 23:04 98.1 94 18 147/80 99 Nasal Cannula 2 Physical Exam GENERAL: Well-nourished, well-developed male in no acute distress. HEENT: Normocephalic, atraumatic. Pupils equal, round and reactive. Extraocular movements intact. No scleral icterus. No injection or drainage. Oropharynx is clear. Mucous membranes are moist. CARDIOVASCULAR: Regular rate and rhythm without murmurs, gallops, or rubs. RESPIRATORY: Clear to auscultation. No wheezes, rales, or rhonchi. Breathing is non-labored. GASTROINTESTINAL: Abdomen soft, non-tender, nondistended. EXTREMITIES: No lower extremity edema. No calf tenderness. Bilateral upper extremities in splints. PSYCH: Alert and oriented x 3. Laboratory Laboratory Tests Test 09/27/16 04:08 White Blood Count 11.8 Red Blood Count 4.36 Hemoglobin 12.4 Hematocrit 36.5 Mean Corpuscular Volume 83.7 Mean Corpuscular Hemoglobin 28.3 Mean Corpuscular Hemoglobin 33.8 Concent Red Cell Distribution Width 13.0 Platelet Count 211 Mean Platelet Volume 9.4 Neutrophils (%) (Auto) 83.1 Lymphocytes (%) (Auto) 2.5 Monocytes (%) (Auto) 10.1 Eosinophils (%) (Auto) 0.1 Basophils (%) (Auto) 4.2 Neutrophils # (Auto) 9.8 Lymphocytes # (Auto) 0.3 Monocytes # (Auto) 1.2 Eosinophils # (Auto) 0.0 Basophils # (Auto) 0.5 CBC Comment AUTO DIFF Differential Total Cells 100 Counted Neutrophils % (Manual) 79 Band Neutrophils % 12 Lymphocytes % 5 Monocytes % 4 Neutrophils # (Manual) 10.7 Differential Comment FINAL DIFF MANUAL Platelet Estimate NORMAL Platelet Morphology Comment NORMAL Sodium Level 134 Potassium Level 4.0 Chloride Level 97 Carbon Dioxide Level 25.3 Anion Gap 12 Blood Urea Nitrogen 14 Creatinine 1.16 Estimat Glomerular Filtration 69 Rate Random Glucose 333 Calcium Level 8.2 Result Diagram: 09/27/16 0408 09/27/16 0408 Imaging Last Impressions Chest X-Ray 09/27/16 0000 Signed Impressions: Service Date/Time: Tuesday, September 27, 2016 04:41 - CONCLUSION: Cardiomegaly. No acute cardiopulmonary disease. Zohaib Mota MD Thoracic Spine CT 09/26/16 1139 Signed Impressions: Service Date/Time: Monday, September 26, 2016 11:59 - CONCLUSION: Normal examination. Davie Ferrell MD Pelvis X-Ray 09/26/[id number] Signed Impressions: Service Date/Time: Monday, September 26, 2016 11:27 - CONCLUSION: Unremarkable examination of the pelvis. Davie Ferrell MD Lumbar Spine CT 09/26/169 Signed Impressions: Service Date/Time: Monday, September 26, 2016 11:59 - CONCLUSION: Normal examination. Davie Ferrell MD Head CT 09/26/16 1139 Signed Impressions: Service Date/Time: Monday, September 26, 2016 11:56 - CONCLUSION: No acute intra-cranial injury Gerardo Webber MD Chest CT 09/26/16 1139 Signed Impressions: Service Date/Time: Monday, September 26, 2016 12:01 - CONCLUSION: Normal examination. Davie Ferrell MD Cervical Spine CT 09/26/16 1139 Signed Impressions: Service Date/Time: Monday, September 26, 2016 11:56 - CONCLUSION: No evidence of acute bony injury in the cervical spine. Degenerative changes and disc disease as described Gerardo Webber MD Abdomen/Pelvis CT 09/26/16 1139 Signed Impressions: Service Date/Time: Monday, September 26, 2016 11:59 - CONCLUSION: Normal examination. Davie Ferrell MD Shoulder X-Ray 09/26/16 0000 Signed Impressions: Service Date/Time: Monday, September 26, 2016 11:27 - CONCLUSION: Unremarkable single view examination of the left shoulder. Gerardo Webber MD Humerus X-Ray 09/26/16 0000 Signed Impressions: Service Date/Time: Monday, September 26, 2016 11:27 - CONCLUSION: Single view of the left humerus demonstrates the humerus is intact. The radial head is laterally subluxed from the capitellum. Humeral head and neck are unremarkable. Davie Ferrell MD Elbow X-Ray 09/26/16 0000 Signed Impressions: Service Date/Time: Monday, September 26, 2016 22:14 - CONCLUSION: Status post ORIF in reasonable alignment. Mikey Maria MD FACR Assessment and Plan Assessment and Plan 1. Status post trauma, fall: Management per trauma surgery, orthopedic surgery. 2. Left elbow fracture, right elbow fracture: Both status post ORIF. Management per orthopedic surgery. 3. Diabetes mellitus: New onset. Glucose has been elevated above 300. Monitor Accu-Cheks and cover with sliding scale insulin. May need to start oral diabetic medications versus insulin. Check hemoglobin A1c. Consult environmental educator. 4. DVT prophylaxis: SCDs. Problem Qualifiers (1) Elbow fracture, right: Qualified Code: S42.401A - Elbow fracture, right, closed, initial encounter (2) Left elbow fracture: Qualified Code: S42.402A - Left elbow fracture, closed, initial encounter (3) Diabetes mellitus: Hilton Maria MD Sep 27, 2016 15:23
--- NOTE | 2016-09-27 16:27 | HHI.PR ---
Subjective Subjective Notes PTD: 1 Pt lying in bed with at bedside. Pt c/o tightness with bilateral splints. No swelling noted. Pt is able to move all fingers to bilateral hands without restriction. Positive peripheral pulses. (Both splints are loose enough to place one width finger inside splint. ) Objective Vitals/I&O Vital Signs Date Time Temp Pulse Resp B/P Pulse Ox O2 Delivery O2 Flow Rate FiO2 09/27/16 13:21 17 09/27/16 12:00 99.8 85 164/77 98 09/27/16 09:19 Nasal Cannula 3.00 Labs Laboratory Tests Test 09/27/16 04:08 White Blood Count 11.8 Red Blood Count 4.36 Hemoglobin 12.4 Hematocrit 36.5 Mean Corpuscular Volume 83.7 Mean Corpuscular Hemoglobin 28.3 Mean Corpuscular Hemoglobin 33.8 Concent Red Cell Distribution Width 13.0 Platelet Count 211 Mean Platelet Volume 9.4 Neutrophils (%) (Auto) 83.1 Lymphocytes (%) (Auto) 2.5 Monocytes (%) (Auto) 10.1 Eosinophils (%) (Auto) 0.1 Basophils (%) (Auto) 4.2 Neutrophils # (Auto) 9.8 Lymphocytes # (Auto) 0.3 Monocytes # (Auto) 1.2 Eosinophils # (Auto) 0.0 Basophils # (Auto) 0.5 CBC Comment AUTO DIFF Differential Total Cells 100 Counted Neutrophils % (Manual) 79 Band Neutrophils % 12 Lymphocytes % 5 Monocytes % 4 Neutrophils # (Manual) 10.7 Differential Comment FINAL DIFF MANUAL Platelet Estimate NORMAL Platelet Morphology Comment NORMAL Sodium Level 134 Potassium Level 4.0 Chloride Level 97 Carbon Dioxide Level 25.3 Anion Gap 12 Blood Urea Nitrogen 14 Creatinine 1.16 Estimat Glomerular Filtration 69 Rate Random Glucose 333 Calcium Level 8.2 Radiology Last Impressions Chest X-Ray 09/27/16 0000 Signed Impressions: Service Date/Time: Tuesday, September 27, 2016 04:41 - CONCLUSION: Cardiomegaly. No acute cardiopulmonary disease. Zohaib Mota MD Thoracic Spine CT 09/26/16 1139 Signed Impressions: Service Date/Time: Monday, September 26, 2016 11:59 - CONCLUSION: Normal examination. Davie Ferrell MD Pelvis X-Ray 09/26/16 1139 Signed Impressions: Service Date/Time: Monday, September 26, 2016 11:27 - CONCLUSION: Unremarkable examination of the pelvis. Davie Ferrell MD Lumbar Spine CT 09/26/16 1139 Signed Impressions: Service Date/Time: Monday, September 26, 2016 11:59 - CONCLUSION: Normal examination. Davie Ferrell MD Head CT 09/26/16 1139 Signed Impressions: Service Date/Time: Monday, September 26, 2016 11:56 - CONCLUSION: No acute intra-cranial injury Gerardo Webber MD Chest CT 09/26/16 1139 Signed Impressions: Service Date/Time: Monday, September 26, 2016 12:01 - CONCLUSION: Normal examination. Davie Ferrell MD Cervical Spine CT 09/26/16 1139 Signed Impressions: Service Date/Time: Monday, September 26, 2016 11:56 - CONCLUSION: No evidence of acute bony injury in the cervical spine. Degenerative changes and disc disease as described Gerardo Webber MD Abdomen/Pelvis CT 09/26/16 1139 Signed Impressions: Service Date/Time: Monday, September 26, 2016 11:59 - CONCLUSION: Normal examination. Davie Ferrell MD Shoulder X-Ray 09/26/16 0000 Signed Impressions: Service Date/Time: Monday, September 26, 2016 11:27 - CONCLUSION: Unremarkable single view examination of the left shoulder. Gerardo Webber MD Humerus X-Ray 09/26/16 0000 Signed Impressions: Service Date/Time: Monday, September 26, 2016 11:27 - CONCLUSION: Single view of the left humerus demonstrates the humerus is intact. The radial head is laterally subluxed from the capitellum. Humeral head and neck are unremarkable. Davie Ferrell MD Elbow X-Ray 09/26/16 0000 Signed Impressions: Service Date/Time: Monday, September 26, 2016 22:14 - CONCLUSION: Status post ORIF in reasonable alignment. Mikey Maria MD FACR Narrative Exam GENERAL: This is a 45-year-old man sitting up in bed in no distress. SKIN: Warm and dry. HEAD: Atraumatic. Normocephalic. EYES: PERRLA ENT: No nasal bleeding or discharge. Mucous membranes pink and moist. NECK: Trachea midline. No JVD. CARDIOVASCULAR: Regular rate and rhythm. RESPIRATORY: No accessory muscle use. Lungs are clear to auscultation. Breath sounds equal bilaterally. No distress or dyspnea. GASTROINTESTINAL: BS + x 4 quads. Abdomen soft, non-tender, nondistended. MUSCULOSKELETAL: Extremities without cyanosis, or edema. Bilateral hands and arms in splints and wrapped in Lawrence bandage. + peripheral pulses x 4 extremities. Warm with good capillary refill and sensation. MAEW. NEUROLOGICAL: Awake and alert. Normal speech and pattern. A/P Problem List: (1) Elbow fracture, right (2) Left elbow fracture Assessment and Plan [place]: This is a 45-year-old male who sustained a fall. 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 ( The fall was approximately 3 feet from the stilts, then an additional 10 feet down the stairs). He was then pinned against the wall. No LOC. Priapism initially. (The patient's initial complaints were of bilateral elbow pain and back pain.) Upon arrival to the trauma bay he was able to move all 4 extremities. INJURIES: LEFT Elbow dislocation LEFT radius fx RIGHT elbow fx Procedures: 09/26: LEFT elbow reduced in ED. 09/26: ORIF LEFT elbow / radius fx ORIF RIGHT elbow / ulna / radius fx Consults: Orthopedics and hospitalist Diet: Regular ADA diet. Tolerating po diet. Encourage good po intake with each meal. Pulmonary: Encourage good pulmonary toileting. IS at bedside and pt encouraged to use. Rationale for use explained to patient, and verbalized understanding. 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 Activity: OOB with assist. (DAVE Neal UE) PT and OT ordered. Added blood glucose testing 4 times a day with sliding-scale insulin - low scale. Requested a hospitalist consult to assist in new-onset diabetes management and teaching. GI prophylaxis: Pepcid at bedtime Bowel regimen: Colace and MOM. DVT prophylaxis: Mechanical VTE with SCDs. Chemical management TBD. DC Planning: Case management consulted for assistance with final discharge disposition. Requested rehabilitation placement. Emotional support provided to patient and family at bedside and plan of care discussed. Discussed with RN at bedside. Patient is hemodynamically stable and being managed on the med/surg floor. The exam, history, and the medical decision-making described in the above note were completed with the assistance of the mid-level provider. I reviewed and agree with the findings presented. I attest that I had a [id number] encounter with the patient on the same day, and personally performed and documented my assessment and findings in the medical record. Problem Qualifiers (1) Elbow fracture, right: Qualified Code: S42.401A - Elbow fracture, right, closed, initial encounter (2) Left elbow fracture: Qualified Code: S42.402A - Left elbow fracture, closed, initial encounter Chloe Medina Sep 27, 2016 16:27 Mansoor Packer MD Sep 29, 2016 13:31
[2016-09-27] MEDS: FAMOTIDINE 20 MG TAB PO SCH (21:00)
[2016-09-28] VITALS (8 sets, daily range): BP systolic 104–185; BP diastolic 56–109; PULSE 94–105; RESP 17–18; TEMP 98–101.5; O2SAT 93–96
[2016-09-28] MEDS: CHLORHEXIDINE GLUCONATE 2 % 1 PACK (2 CLOTHS) TOP SCH (04:00)
[2016-09-28] MEDS: PCA - TOTAL MG MORPHINE DELIVERED PER SHIFT SCH (06:00)
[2016-09-28] MEDS: DEXT 5%-NACL 0.45% 1000 ML INJ 1,000 ML IV SCH (06:00)
[2016-09-28 06:14] LABS: MEAN CELL VOLUME 82.7 FL (80.0-100.0); MEAN CORPUSCULAR HEMOGLOBIN 28.8 PG (27.0-34.0); MEAN CORPUSCULAR HGB CONC 34.8 % (32.0-36.0); PLATELET COUNT 193 TH/MM3 (150-450); RED BLOOD COUNT 4.11 MIL/MM3 (4.50-5.90); RED CELL DISTRIBUTION WIDTH 12.8 % (11.6-17.2); REVIEW FLAG FINAL; WHITE BLOOD COUNT 9.8 TH/MM3 (4.0-11.0)
[2016-09-28 06:32] LABS: BICARBONATE 28.2 MEQ/L (21.0-32.0); MAGNESIUM 1.9 MG/DL (1.5-2.5)
[2016-09-28] MEDS: INSULIN ASPART SUPPLEMENTAL SCALE SQ SCH ×4 (07:00→21:22)
[2016-09-28] MEDS: oxyCODONE/ACETAMINOPHEN 5 MG/325 MG TAB PO PRN ×2 (08:41→22:49)
[2016-09-28] MEDS: metFORMIN HCL 500 MG TAB PO SCH ×2 (08:41→17:38)
[2016-09-28] MEDS: DOCUSATE SODIUM 100 MG CAP PO SCH ×2 (08:41→21:15)
[2016-09-28] MEDS: MORPHINE SULFATE 30 MG/30 ML PCA IV SCH (08:52)
[2016-09-28] MEDS: SODIUM CHLORIDE 0.9% FLUSH 5 ML FLUSH IVF SCH ×2 (09:00→21:00)
[2016-09-28] MEDS: BACITRACIN TOP OINT 15 GM TUBE TOP SCH ×2 (09:00→21:00)
--- NOTE | 2016-09-28 10:38 | HHI.PR ---
Subjective Subjective Notes PTD: 2 Patient had a bed and sitting in a chair. Family at bedside. Patient complains of pain to bilateral upper extremities. Objective Vitals/I&O Vital Signs Date Time Temp Pulse Resp B/P Pulse Ox O2 Delivery O2 Flow Rate FiO2 09/28/16 09:47 99.4 09/28/16 09:08 18 09/28/16 08:00 105 95 09/27/16 20:01 Nasal Cannula 3.00 Labs Laboratory Tests Test 09/28/16 05:32 White Blood Count 9.8 Red Blood Count 4.11 Hemoglobin 11.8 Hematocrit 34.0 Mean Corpuscular Volume 82.7 Mean Corpuscular Hemoglobin 28.8 Mean Corpuscular Hemoglobin 34.8 Concent Red Cell Distribution Width 12.8 Platelet Count 193 Mean Platelet Volume 9.2 Sodium Level 128 Potassium Level 4.0 Chloride Level 91 Carbon Dioxide Level 28.2 Anion Gap 9 Blood Urea Nitrogen 12 Creatinine 0.99 Estimat Glomerular Filtration 83 Rate Random Glucose 277 Calcium Level 8.7 Magnesium Level 1.9 Radiology Last Impressions Chest X-Ray 09/27/16 0000 Signed Impressions: Service Date/Time: Tuesday, September 27, 2016 04:41 - CONCLUSION: Cardiomegaly. No acute cardiopulmonary disease. Zohaib Mota MD Thoracic Spine CT 09/26/16 1139 Signed Impressions: Service Date/Time: Monday, September 26, 2016 11:59 - CONCLUSION: Normal examination. Davie Ferrell MD Pelvis X-Ray 09/26/16 1139 Signed Impressions: Service Date/Time: Monday, September 26, 2016 11:27 - CONCLUSION: Unremarkable examination of the pelvis. Davie Ferrell MD Lumbar Spine CT 09/26/16 1139 Signed Impressions: Service Date/Time: Monday, September 26, 2016 11:59 - CONCLUSION: Normal examination. Davie Ferrell MD Head CT 09/26/16 1139 Signed Impressions: Service Date/Time: Monday, September 26, 2016 11:56 - CONCLUSION: No acute intra-cranial injury Gerardo Webber MD Chest CT 09/26/16 1139 Signed Impressions: Service Date/Time: Monday, September 26, 2016 12:01 - CONCLUSION: Normal examination. Davie Ferrell MD Cervical Spine CT 09/26/16 1139 Signed Impressions: Service Date/Time: Monday, September 26, 2016 11:56 - CONCLUSION: No evidence of acute bony injury in the cervical spine. Degenerative changes and disc disease as described Gerardo Webber MD Abdomen/Pelvis CT 09/26/16 1139 Signed Impressions: Service Date/Time: Monday, September 26, 2016 11:59 - CONCLUSION: Normal examination. Davie Ferrell MD Shoulder X-Ray 09/26/16 0000 Signed Impressions: Service Date/Time: Monday, September 26, 2016 11:27 - CONCLUSION: Unremarkable single view examination of the left shoulder. Gerardo Webber MD Humerus X-Ray 09/26/16 0000 Signed Impressions: Service Date/Time: Monday, September 26, 2016 11:27 - CONCLUSION: Single view of the left humerus demonstrates the humerus is intact. The radial head is laterally subluxed from the capitellum. Humeral head and neck are unremarkable. Davie Ferrell MD Elbow X-Ray 09/26/16 0000 Signed Impressions: Service Date/Time: Monday, September 26, 2016 22:14 - CONCLUSION: Status post ORIF in reasonable alignment. Mikey Maria MD FACR Narrative Exam GENERAL: This is a 45-year-old man OOB sitting in a chair. SKIN: Warm and dry. HEAD: Atraumatic. Normocephalic. EYES: PERRLA ENT: No nasal bleeding or discharge. Mucous membranes pink and moist. NECK: Trachea midline. No JVD. CARDIOVASCULAR: Regular rate and rhythm. RESPIRATORY: No accessory muscle use. Lungs are clear to auscultation. Breath sounds equal bilaterally. No distress or dyspnea. GASTROINTESTINAL: BS + x 4 quads. Abdomen soft, non-tender, nondistended. MUSCULOSKELETAL: Extremities without cyanosis, or edema. Bilateral hands and arms in splints and wrapped in Lawrence bandage. + peripheral pulses x 4 extremities. Warm with good capillary refill and sensation. MAEW. NEUROLOGICAL: Awake and alert. Normal speech and pattern. A/P Problem List: (1) Elbow fracture, right (2) Left elbow fracture Assessment and Plan [place]: This is a 45-year-old male who sustained a fall. He was working on [employer], and fell off the stilts and then further down a flight of stairs. ( The fall was approximately 3 feet from the stilts, then an additional 10 feet down the stairs). He was then pinned against the wall. No LOC. Priapism initially. (The patient's initial complaints were of bilateral elbow pain and back pain.) Upon arrival to the trauma bay he was able to move all 4 extremities. INJURIES: LEFT Elbow dislocation LEFT radius fx RIGHT elbow fx Procedures: 09/26: LEFT elbow reduced in ED. 09/26: ORIF LEFT elbow / radius fx ORIF RIGHT elbow / ulna / radius fx Consults: Orthopedics and hospitalist Diet: Regular ADA diet. Tolerating po diet. Encourage good po intake with each meal. Pulmonary: Encourage good pulmonary toileting. IS at bedside and pt encouraged to use. Rationale for use explained to patient, and verbalized understanding. PAIN Management: Percocet by mouth. 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 (NWB Bilater UE) PT and OT ordered. Added blood glucose testing 4 times a day with sliding-scale insulin - low scale. Requested a hospitalist consult to assist in new-onset diabetes management and teaching. Hypertension: Added lisinopril 20 mg by mouth daily. GI prophylaxis: Pepcid at bedtime Bowel regimen: Colace and MOM. DVT prophylaxis: Mechanical VTE with SCDs. Chemical management with Lovenox 40 q day. DC Planning: Case management consulted for assistance with final discharge disposition. Patient may benefit from home health care with PT and OT. This is a Workmen's Comp. case, and we cannot move forward until the patient can tell us who his employer is. Emotional support provided to patient and family at bedside and plan of care discussed. Discussed with RN at bedside. Patient is hemodynamically stable and being managed on the med/surg floor. Problem Qualifiers (1) Elbow fracture, right: Qualified Code: S42.401A - Elbow fracture, right, closed, initial encounter (2) Left elbow fracture: Qualified Code: S42.402A - Left elbow fracture, closed, initial encounter Chloe Medina Sep 28, 2016 10:38
[2016-09-28] MEDS: ENALAPRILAT 1.25 MG/ML VIAL IV PRN (11:49)
--- NOTE | 2016-09-28 11:51 | HHI.FF ---
Face to Face Verification Diagnosis: (1) Elbow fracture, right (2) Left elbow fracture (3) Diabetes mellitus Physical Therapy Order: Evaluate and Treat, Improve ambulation, Strength and gait training Home Health Nursing Order: Medical education Signs/symptoms of disease process Diabetic education Medication education-adverse effect Nursing assessment with vital signs I have seen patient Kentrell Calixto on 09/28/16. My clinical findings support the need for the requested home health care services because: Ltd mobility - disease progression Deconditioned w/ increased weakness Limited ability to care for self High risk of falls I certify that my clinical findings support that this patient is homebound because: Post-op weakness Unsteady gait/balance [id number] bed/chair Chloe Medina Sep 28, 2016 11:51
[2016-09-28] MEDS: LISINOPRIL 20 MG TAB PO SCH (12:00)
[2016-09-28] MEDS: ENOXAPARIN SODIUM 40 MG/0.4 ML SYRINGE SQ SCH (13:48)
--- NOTE | 2016-09-28 14:24 | HHI.PR ---
Subjective Remarks Follow-up diabetes mellitus. Patient reporting pain in both elbows. No other complaints at this time. Denies chest pain, dyspnea, nausea, vomiting, diarrhea , constipation. Objective Vitals Vital Signs Date Time Temp Pulse Resp B/P Pulse Ox O2 Delivery O2 Flow Rate FiO2 09/28/16 13:48 94 104/56 09/28/16 12:30 93 21 09/28/16 12:00 98.8 95 18 185/109 96 09/28/16 09:47 99.4 09/28/16 09:08 18 09/28/16 08:00 101.3 105 18 140/79 95 09/28/16 06:00 19 09/28/16 04:00 99.7 103 17 142/78 95 09/27/16 23:45 100.9 103 17 158/81 98 09/27/16 22:00 17 09/27/16 20:10 99.9 101 17 143/84 95 09/27/16 20:01 98 Nasal Cannula 3.00 09/27/16 16:00 98.8 110 18 125/71 98 I/O 09/27/16 09/27/16 09/27/16 09/28/16 09/28/16 09/28/16 07:00 15:00 23:00 07:00 15:00 23:00 Intake Total 2960 ml 720 ml 720 ml 480 ml Output Total 1400 ml 900 ml 1100 ml 800 ml Balance 1560 ml -180 ml -380 ml -320 ml Intake Oral 960 ml 720 ml 720 ml 480 ml IV Total 200 ml Other 1800 ml Output Urine Total 1200 ml 900 ml 1100 ml 800 ml Estimated Blood Loss 200 ml Bladder Scan Volume Amount 999 ml # Bowel Movements 0 0 0 0 Result Diagram: 09/28/16 0532 09/28/16 0532 Imaging Last Impressions Chest X-Ray 09/27/16 0000 Signed Impressions: Service Date/Time: Tuesday, September 27, 2016 04:41 - CONCLUSION: Cardiomegaly. No acute cardiopulmonary disease. Zohaib Mota MD Thoracic Spine CT 09/26/16 1139 Signed Impressions: Service Date/Time: Monday, September 26, 2016 11:59 - CONCLUSION: Normal examination. Davie Ferrell MD Pelvis X-Ray 09/26/16 1139 Signed Impressions: Service Date/Time: Monday, September 26, 2016 11:27 - CONCLUSION: Unremarkable examination of the pelvis. Davie Ferrell MD Lumbar Spine CT 09/26/16 1139 Signed Impressions: Service Date/Time: Monday, September 26, 2016 11:59 - CONCLUSION: Normal examination. Davie Ferrell MD Head CT 09/26/16 1139 Signed Impressions: Service Date/Time: Monday, September 26, 2016 11:56 - CONCLUSION: No acute intra-cranial injury Gerardo Webber MD Chest CT 09/26/16 1139 Signed Impressions: Service Date/Time: Monday, September 26, 2016 12:01 - CONCLUSION: Normal examination. Davie Ferrell MD Cervical Spine CT 09/26/16 1139 Signed Impressions: Service Date/Time: Monday, September 26, 2016 11:56 - CONCLUSION: No evidence of acute bony injury in the cervical spine. Degenerative changes and disc disease as described Gerardo Webber MD Abdomen/Pelvis CT 09/26/16 1139 Signed Impressions: Service Date/Time: Monday, September 26, 2016 11:59 - CONCLUSION: Normal examination. Davie Ferrell MD Shoulder X-Ray 09/26/16 0000 Signed Impressions: Service Date/Time: Monday, September 26, 2016 11:27 - CONCLUSION: Unremarkable single view examination of the left shoulder. Gerardo Webber MD Humerus X-Ray 09/26/16 0000 Signed Impressions: Service Date/Time: Monday, September 26, 2016 11:27 - CONCLUSION: Single view of the left humerus demonstrates the humerus is intact. The radial head is laterally subluxed from the capitellum. Humeral head and neck are unremarkable. Davie Ferrell MD Elbow X-Ray 09/26/16 0000 Signed Impressions: Service Date/Time: Monday, September 26, 2016 22:14 - CONCLUSION: Status post ORIF in reasonable alignment. Mikey Maria MD FACR Objective Remarks General: No acute distress. Heart: Regular rate and rhythm. No murmur. Lungs: Clear to auscultation bilaterally. No wheezes, rales, or rhonchi. Breathing is nonlabored. Abdomen: Soft, nontender, nondistended. Extremities: No lower extremity edema. Bilateral upper extremities in splints. Psych: Alert and oriented. Urinary Catheter: No Vascular Central Line Catheter: No A/P Problem List: (1) Elbow fracture, right ICD Code: S42.401A Status: Acute (2) Left elbow fracture ICD Code: S42.402A Status: Acute (3) Diabetes mellitus ICD Code: E11.9 Status: Acute Assessment and Plan 1. Status post trauma, fall: Management per trauma surgery, orthopedic surgery. 2. Left elbow fracture, right elbow fracture: Both status post ORIF. Management per orthopedic surgery. 3. Diabetes mellitus: New onset. Glucose has been elevated above 300. Monitor Accu-Cheks and cover with sliding scale insulin. Start metformin. Hemoglobin A1c is pending. staff educator consult pending. Patient will need outpatient follow-up. 4. DVT prophylaxis: SCDs. Problem Qualifiers (1) Elbow fracture, right: Qualified Code: S42.401A - Elbow fracture, right, closed, initial encounter (2) Left elbow fracture: Qualified Code: S42.402A - Left elbow fracture, closed, initial encounter (3) Diabetes mellitus: Hilton Maria MD Sep 28, 2016 14:24
--- NOTE | 2016-09-28 14:56 | PD.ORT.PN ---
Subjective Subjective Remarks Patient sitting up comfortably. 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 Family at bedside. Objective Vitals Vital Signs Date Time Temp Pulse Resp B/P Pulse Ox O2 Delivery O2 Flow Rate FiO2 09/28/16 13:48 94 104/56 09/28/16 12:30 93 21 09/28/16 12:00 98.8 95 18 185/109 96 09/28/16 09:47 99.4 09/28/16 09:08 18 09/28/16 08:00 101.3 105 18 140/79 95 09/28/16 06:00 19 09/28/16 04:00 99.7 103 17 142/78 95 09/27/16 23:45 100.9 103 17 158/81 98 09/27/16 22:00 17 09/27/16 20:10 99.9 101 17 143/84 95 09/27/16 20:01 98 Nasal Cannula 3.00 09/27/16 16:00 98.8 110 18 125/71 98 I/O 09/27/16 09/27/16 09/27/16 09/28/16 09/28/16 09/28/16 07:00 15:00 23:00 07:00 15:00 23:00 Intake Total 2960 ml 720 ml 720 ml 480 ml Output Total 1400 ml 900 ml 1100 ml 800 ml Balance 1560 ml -180 ml -380 ml -320 ml Intake Oral 960 ml 720 ml 720 ml 480 ml IV Total 200 ml Other 1800 ml Output Urine Total 1200 ml 900 ml 1100 ml 800 ml Estimated Blood Loss 200 ml Bladder Scan Volume Amount 999 ml # Bowel Movements 0 0 0 0 Result Diagram: 09/28/16 0532 09/28/16 0532 Imaging Last 24 hours Impressions Thoracic Spine CT [id number]/26/[id number] Signed Impressions: Service Date/Time: Monday, September 26, 2016 11:59 - CONCLUSION: Normal examination. Davie Ferrell MD Pelvis X-Ray [id number]/26/[id number] Signed Impressions: Service Date/Time: Monday, September 26, 2016 11:27 - CONCLUSION: Unremarkable examination of the pelvis. Davie Ferrell MD Lumbar Spine CT [id number]/26/[id number] Signed Impressions: Service Date/Time: Monday, September 26, 2016 11:59 - CONCLUSION: Normal examination. Davie Ferrell MD Head CT 09/26/16 1139 Signed Impressions: Service Date/Time: Monday, September 26, 2016 11:56 - CONCLUSION: No acute intra-cranial injury Gerardo Webber MD Chest X-Ray 09/26/16 1139 Signed Impressions: Service Date/Time: Monday, September 26, 2016 11:27 - CONCLUSION: Normal examination. Davie Ferrell MD Chest CT 09/26/16 1139 Signed Impressions: Service Date/Time: Monday, September 26, 2016 12:01 - CONCLUSION: Normal examination. Davie Ferrell MD Cervical Spine CT 09/26/16 1139 Signed Impressions: Service Date/Time: Monday, September 26, 2016 11:56 - CONCLUSION: No evidence of acute bony injury in the cervical spine. Degenerative changes and disc disease as described Gerardo Webber MD Abdomen/Pelvis CT 09/26/16 1139 Signed Impressions: Service Date/Time: Monday, September 26, 2016 11:59 - CONCLUSION: Normal examination. Davie Ferrell MD Procedures 1) ORIF left elbow benita-articular with comminuted radial head fracture 2) ORIF right elbow high comminuted proximal ulna fracture dislocation and radial head fracture Objective Remarks Right elbow splint and preston wrap in place C/D/I numbness/tingling sensation to all digits good cap refill good forward flexion of right shoulder Left elbow splint and preston wrap in place C/D/I + sensation good movement of digits good cap refill denies pain to left shoulder unable to forward flex left shoulder Assessment & Plan Ortho Post Op Day #: 2 Problem List: Assessment and Plan 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
[2016-09-28 16:46] LABS: HEMOGLOBIN A1a 1.1 %; HEMOGLOBIN A1b 2.7 %; HEMOGLOBIN Ao 78.9 %; HEMOGLOBIN LA1C 2.8 %; HEMOGLOBIN P3 4.6 %
[2016-09-28] MEDS: FAMOTIDINE 20 MG TAB PO SCH (21:15)
[2016-09-29 00:31] VITALS: BP 132/63; PULSE 96; RESP 18; TEMP 99.4; O2SAT 96
[2016-09-29] MEDS: INSULIN ASPART SUPPLEMENTAL SCALE SQ SCH ×4 (05:40→21:18)
[2016-09-29] MEDS: oxyCODONE/ACETAMINOPHEN 5 MG/325 MG TAB PO PRN (06:28)
--- NOTE | 2016-09-29 07:35 | PD.ORT.PN ---
Subjective Subjective Remarks Patient c/o bilateral elbow pain and dizziness. at bedside. Objective Vitals Vital Signs Date Time Temp Pulse Resp B/P Pulse Ox O2 Delivery O2 Flow Rate FiO2 09/29/16 00:31 99.4 96 18 132/63 96 09/28/16 20:39 98.0 95 17 128/62 96 09/28/16 16:00 101.5 100 18 133/65 95 09/28/16 13:48 94 104/56 09/28/16 12:30 93 21 09/28/16 12:00 98.8 95 18 185/109 96 09/28/16 09:47 99.4 09/28/16 09:08 18 09/28/16 08:00 101.3 105 18 140/79 95 I/O 09/28/16 09/28/16 09/28/16 09/29/16 09/29/16 09/29/16 07:00 15:00 23:00 07:00 15:00 23:00 Intake Total 1440 ml 480 ml Output Total 1800 ml 700 ml Balance -360 ml -220 ml Intake Oral 1440 ml 480 ml Output Urine Total 1800 ml 700 ml # Bowel Movements 0 0 Result Diagram: 09/28/16 0532 09/28/16 0532 Imaging Last 24 hours Impressions Thoracic Spine CT 09/26/161138 Signed Impressions: Service Date/Time: Monday, September 26, 2016 11:59 - CONCLUSION: Normal examination. Davie Ferrell MD Pelvis X-Ray 09/26/161138 Signed Impressions: Service Date/Time: Monday, September 26, 2016 11:27 - CONCLUSION: Unremarkable examination of the pelvis. Davie Ferrell MD Lumbar Spine CT 09/26/16 113 Signed Impressions: Service Date/Time: Monday, September 26, 2016 11:59 - CONCLUSION: Normal examination. Davie Ferrell MD Head CT 09/26/161138 Signed Impressions: Service Date/Time: Monday, September 26, 2016 11:56 - CONCLUSION: No acute intra-cranial injury Gerardo Webber MD Chest X-Ray 09/26/161138 Signed Impressions: Service Date/Time: Monday, September 26, 2016 11:27 - CONCLUSION: Normal examination. Davie Ferrell MD Chest CT 09/26/16 1139 Signed Impressions: Service Date/Time: Monday, September 26, 2016 12:01 - CONCLUSION: Normal examination. Davie Ferrell MD Cervical Spine CT 09/26/16 1139 Signed Impressions: Service Date/Time: Monday, September 26, 2016 11:56 - CONCLUSION: No evidence of acute bony injury in the cervical spine. Degenerative changes and disc disease as described Gerardo Webber MD Abdomen/Pelvis CT 09/26/16 1139 Signed Impressions: Service Date/Time: Monday, September 26, 2016 11:59 - CONCLUSION: Normal examination. Davie Ferrell MD Procedures 1) ORIF left elbow benita-articular with comminuted radial head fracture 2) ORIF right elbow high comminuted proximal ulna fracture dislocation and radial head fracture Objective Remarks Right elbow splint and preston wrap in place C/D/I numbness/tingling sensation to all digits good movement of digits good cap refill good forward flexion of right shoulder Left elbow splint and preston wrap in place C/D/I + sensation good movement of digits good cap refill able to move left shoulder Assessment & Plan Assessment and Plan POD #3 Pain management - Percocet Physical therapy - non weight bearing to bilateral upper extremities We will continue to monitor patient for pain management. States he is not ready to be discharge. Monitor neuro of right hand D/C planning - anticipating home HansaMumtaz alvarez MOISES Sep 29, 2016 07:35
[2016-09-29] MEDS ORDERED: DOCU1CAP39 PO (07:51)
[2016-09-29] MEDS ORDERED: MILKSUS PO (07:51)
[2016-09-29 08:00] VITALS: BP 110/69; PULSE 90; RESP 18; TEMP 98.7; O2SAT 100
[2016-09-29] MEDS ORDERED: LACTULOSE SYRUP 20 GM/30 ML CUP PO ONE (08:00)
[2016-09-29] MEDS: metFORMIN HCL 500 MG TAB PO SCH ×2 (08:24→16:52)
[2016-09-29] MEDS: DOCUSATE SODIUM 100 MG CAP PO SCH ×2 (08:24→21:18)
[2016-09-29] MEDS: LISINOPRIL 20 MG TAB PO SCH ×2 (08:24→08:31)
[2016-09-29] MEDS: BACITRACIN TOP OINT 15 GM TUBE TOP SCH ×2 (08:25→21:00)
[2016-09-29] MEDS: SODIUM CHLORIDE 0.9% FLUSH 5 ML FLUSH IVF SCH ×2 (08:25→21:19)
[2016-09-29 09:11] VITALS: O2SAT 96
--- NOTE | 2016-09-29 10:03 | MB ---
cc: MARCI GOTTLIEB M.D. Corrected Copy: 10/12/16 SAMINA [email or web address] DATE OF CONSULTATION 09/26/2016 REASON FOR CONSULTATION Requested to evaluate a trauma patient with bilateral elbow fracture dislocations. HISTORY OF PRESENT ILLNESS Gerardo Carvalho whose real name is Kentrell Calixto is a 45-year-old male who was seriously injured while at work on the day of admission, 09/26/2016. 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 The left elbow was dislocated posteriorly and had radial head fragments and the trauma surgeon attempted a closed reduction in the emergency room. The right elbow was fractured through the comminuted olecranon/proximal ulnar shaft fracture with also comminution of the radial head, but also dislocation of the radial head more like a Monteggia fracture. He underwent a trauma workup including CT the head, CT of the cervical spine, CT of the thorax, CT the abdomen and pelvis, CT of the lumbar spine and he had limited x-rays taken on both elbows. He also complained of pain involving his left shoulder and left shoulder x-rays were negative. PAST MEDICAL HISTORY His past medical history is negative. PAST SURGICAL HISTORY His past surgical history is negative. ALLERGIES He has no known drug allergies. SOCIAL HISTORY He denies alcohol, tobacco usage. He is and speaks primarily Lebanese, but he does speak some Guamanian and his [id number] is at the bedside who is very good bilingual in both Guamanian and Lebanese. PHYSICAL EXAM HEAD, EYES, EARS, NOSE, AND THROAT: His physical examination showed abrasion on the posterior aspect of his head that did not require repair. His ears and eyes are otherwise negative. Mucous membranes pink and moist. NECK: No significant tenderness. Tender to palpation about the left shoulder is isolated. There are no crepitations. Sternoclavicular and acromioclavicular joints are nontender. He has splints in place on both of his elbows. He is able to slightly flex and slightly extend his fingers and he reports sensation intact in all five fingers bilaterally. ABDOMEN: Soft and nontender. PELVIC: His pelvis is stable. He has good motion of his hips, knees and ankles. NEUROLOGIC: The distal motor, sensory and neurologic examination is intact. IMAGING Images are reviewed, a highly comminuted proximal ulna fracture on the right with a shatter radial head. The left elbow is dislocated and will not reduce because there are radial head fragments in the joint and a comminuted radial head. ASSESSMENT 1. Severe bilateral upper extremity trauma which occurred at work secondary to a fall from being on stilts. 2. Right elbow highly comminuted Monteggia fracture with radial head fracture comminuted. 3. Left elbow dislocation with displaced radial head fracture and blocked reduction with attempted closed reduction. MEDICAL DECISION MAKING His condition was discussed and the options of treatment were discussed and this was gone over in detail through his [id number] who translated. RECOMMENDATIONS The recommendations is to proceed with surgical intervention with both elbows. The risks and benefits thoroughly discussed. Included in the discussion, we talked about the severity of the injury and most likely having some degree of permanent injury of his elbows. We talked about the possibility of requiring radial head surgery and even the possibility of elbow replacement surgery in the future. We stated that long-term we do not know the full impact on his work, but this is a very very serious injury and even the best case, it will be many many months before he has substantial return of function in both his elbows. We talked about the risk of nerve damage, blood vessel damage, mechanical complications like failure of internal fixation, need for revision surgery, recurrent dislocation of the elbow. The risks and benefits thoroughly discussed and a detailed informed consent was obtained. MD CHAZ Gilbert/CLAUDIA /7:58 PM /11:17 AM
--- NOTE | 2016-09-29 11:08 | HHI.PR ---
Subjective Remarks Follow-up diabetes, fever, hyponatremia. The patient reports 8/10 pain in both arms. Also having paresthesias in fingers of right hand. Objective Vitals Vital Signs Date Time Temp Pulse Resp B/P Pulse Ox O2 Delivery O2 Flow Rate FiO2 09/29/16 09:11 96 Nasal Cannula 2.00 09/29/16 08:00 98.7 90 18 110/69 100 09/29/16 00:31 99.4 96 18 132/63 96 09/28/16 20:39 98.0 95 17 128/62 96 09/28/16 16:00 101.5 100 18 133/65 95 09/28/16 13:48 94 104/56 09/28/16 12:30 93 21 09/28/16 12:00 98.8 95 18 185/109 96 I/O 09/28/16 09/28/16 09/28/16 09/29/16 09/29/16 09/29/16 07:00 15:00 23:00 07:00 15:00 23:00 Intake Total 1440 ml 480 ml 360 ml Output Total 1800 ml 700 ml 700 ml Balance -360 ml -220 ml -340 ml Intake Oral 1440 ml 480 ml 360 ml Output Urine Total 1800 ml 700 ml 700 ml # Bowel Movements 0 0 0 Result Diagram: 09/28/16 0532 09/28/16 0532 Imaging Last Impressions Chest X-Ray 09/27/16 0000 Signed Impressions: Service Date/Time: Tuesday, September 27, 2016 04:41 - CONCLUSION: Cardiomegaly. No acute cardiopulmonary disease. Zohaib Mota MD Thoracic Spine CT 09/26/16 1139 Signed Impressions: Service Date/Time: Monday, September 26, 2016 11:59 - CONCLUSION: Normal examination. Davie Ferrell MD Pelvis X-Ray 09/26/16 1139 Signed Impressions: Service Date/Time: Monday, September 26, 2016 11:27 - CONCLUSION: Unremarkable examination of the pelvis. Davie Ferrell MD Lumbar Spine CT 09/26/16 1139 Signed Impressions: Service Date/Time: Monday, September 26, 2016 11:59 - CONCLUSION: Normal examination. Davie Ferrell MD Head CT 09/26/16 1139 Signed Impressions: Service Date/Time: Monday, September 26, 2016 11:56 - CONCLUSION: No acute intra-cranial injury Gerardo Webber MD Chest CT 09/26/16 1139 Signed Impressions: Service Date/Time: Monday, September 26, 2016 12:01 - CONCLUSION: Normal examination. Davie Ferrell MD Cervical Spine CT 09/26/16 1139 Signed Impressions: Service Date/Time: Monday, September 26, 2016 11:56 - CONCLUSION: No evidence of acute bony injury in the cervical spine. Degenerative changes and disc disease as described Gerardo Webber MD Abdomen/Pelvis CT 09/26/16 1139 Signed Impressions: Service Date/Time: Monday, September 26, 2016 11:59 - CONCLUSION: Normal examination. Davie Ferrell MD Shoulder X-Ray 09/26/16 0000 Signed Impressions: Service Date/Time: Monday, September 26, 2016 11:27 - CONCLUSION: Unremarkable single view examination of the left shoulder. Gerardo Webber MD Humerus X-Ray 09/26/16 0000 Signed Impressions: Service Date/Time: Monday, September 26, 2016 11:27 - CONCLUSION: Single view of the left humerus demonstrates the humerus is intact. The radial head is laterally subluxed from the capitellum. Humeral head and neck are unremarkable. Davie Ferrell MD Elbow X-Ray 09/26/16 0000 Signed Impressions: Service Date/Time: Monday, September 26, 2016 22:14 - CONCLUSION: Status post ORIF in reasonable alignment. Mikey Maria MD FACR Objective Remarks General: No acute distress. Heart: Regular rate and rhythm. No murmur. Lungs: Clear to auscultation bilaterally. No wheezes, rales, or rhonchi. Breathing is nonlabored. Abdomen: Soft, nontender, nondistended. Extremities: No lower extremity edema. Bilateral upper extremities in splints. Psych: Alert and oriented. Urinary Catheter: No Vascular Central Line Catheter: No A/P Problem List: (1) Elbow fracture, right ICD Code: S42.401A Status: Acute (2) Left elbow fracture ICD Code: S42.402A Status: Acute (3) Diabetes mellitus ICD Code: E11.9 Status: Acute (4) Hyponatremia ICD Code: E87.1 Status: Acute Assessment and Plan 1. Status post trauma, fall: Management per trauma surgery, orthopedic surgery. 2. Left elbow fracture, right elbow fracture: Both status post ORIF. Management per orthopedic surgery. 3. Diabetes mellitus: New onset. Glucose has been elevated above 300. Monitor Accu-Cheks and cover with sliding scale insulin. Continue metformin. Hemoglobin A1c is 9.5. 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 Patient will need outpatient follow-up. The patient would likely benefit from initiation of insulin, but secondary to financial constraints and lack of insurance coverage, will start with metformin. May consider a second oral agent as well. Discussed with medical record retrieval specialist today. 4. DVT prophylaxis: SCDs. Problem Qualifiers (1) Elbow fracture, right: Qualified Code: S42.401A - Elbow fracture, right, closed, initial encounter (2) Left elbow fracture: Qualified Code: S42.402A - Left elbow fracture, closed, initial encounter (3) Diabetes mellitus: Hilton Maria MD Sep 29, 2016 11:08
[2016-09-29] MEDS ORDERED: ACETAMINOPHEN/HYDROcodone 325 MG/7.5 MG TAB PO PRN (11:30)
[2016-09-29 12:00] VITALS: BP 104/73; PULSE 95; RESP 20; TEMP 100.5; O2SAT 100
[2016-09-29] MEDS: ACETAMINOPHEN/HYDROcodone 325 MG/10 MG TAB PO PRN ×3 (12:36→21:18)
[2016-09-29] MEDS: ENOXAPARIN SODIUM 40 MG/0.4 ML SYRINGE SQ SCH (12:36)
--- NOTE | 2016-09-29 13:09 | HHI.PR ---
Subjective Subjective Notes PTD: 3 Patient sitting up in bed with family at bedside. Patient is complaining of increased pain, and is taking pain medications approximately every 6 hours. Patient states he has been eating well, and has been drinking a lot of water. The patient is encouraged to get out of bed several times a day, especially with meals. Objective Vitals/I&O Vital Signs Date Time Temp Pulse Resp B/P Pulse Ox O2 Delivery O2 Flow Rate FiO2 09/29/16 12:00 100.5 95 20 104/73 100 09/29/16 09:11 Nasal Cannula 2.00 09/28/16 12:30 21 Labs Laboratory Tests Test 09/26/16 09/27/16 09/28/16 11:40 04:08 05:32 Bedside Hemoglobin 14.6 G/DL Bedside Hematocrit 43.0 % Prothrombin Time 10.9 SEC Prothromb Time International 1.0 RATIO Ratio Activated Partial 21.3 SEC Thromboplast Time Bedside Sodium 138 MMOL/L Bedside Potassium 4.1 MMOL/L Bedside Chloride 98 MMOL/L Bedside Blood Urea Nitrogen 19 MG/DL Bedside Creatinine 0.8 MG/DL Bedside Glucose 280 MG/DL Blood Type B POSITIVE Antibody Screen NEGATIVE Neutrophils (%) (Auto) 83.1 % Lymphocytes (%) (Auto) 2.5 % Monocytes (%) (Auto) 10.1 % Eosinophils (%) (Auto) 0.1 % Basophils (%) (Auto) 4.2 % Neutrophils # (Auto) 9.8 TH/MM3 Lymphocytes # (Auto) 0.3 TH/MM3 Monocytes # (Auto) 1.2 TH/MM3 Eosinophils # (Auto) 0.0 TH/MM3 Basophils # (Auto) 0.5 TH/MM3 CBC Comment AUTO DIFF Differential Total Cells 100 Counted Neutrophils % (Manual) 79 % Band Neutrophils % 12 % Lymphocytes % 5 % Monocytes % 4 % Neutrophils # (Manual) 10.7 TH/MM3 Differential Comment FINAL DIFF MANUAL Platelet Estimate NORMAL Platelet Morphology Comment NORMAL Hemoglobin A1c 9.5 % White Blood Count 9.8 TH/MM3 Red Blood Count 4.11 MIL/MM3 Hemoglobin 11.8 GM/DL Hematocrit 34.0 % Mean Corpuscular Volume 82.7 FL Mean Corpuscular Hemoglobin 28.8 PG Mean Corpuscular Hemoglobin 34.8 % Concent Red Cell Distribution Width 12.8 % Platelet Count 193 TH/MM3 Mean Platelet Volume 9.2 FL Sodium Level 128 MEQ/L Potassium Level 4.0 MEQ/L Chloride Level 91 MEQ/L Carbon Dioxide Level 28.2 MEQ/L Anion Gap 9 MEQ/L Blood Urea Nitrogen 12 MG/DL Creatinine 0.99 MG/DL Estimat Glomerular Filtration 83 ML/MIN Rate Random Glucose 277 MG/DL Calcium Level 8.7 MG/DL Magnesium Level 1.9 MG/DL Radiology Last Impressions Chest X-Ray 09/27/16 0000 Signed Impressions: Service Date/Time: Tuesday, September 27, 2016 04:41 - CONCLUSION: Cardiomegaly. No acute cardiopulmonary disease. Zohaib Mota MD Thoracic Spine CT 09/26/16 1139 Signed Impressions: Service Date/Time: Monday, September 26, 2016 11:59 - CONCLUSION: Normal examination. Davie Ferrell MD Pelvis X-Ray 09/26/16 1139 Signed Impressions: Service Date/Time: Monday, September 26, 2016 11:27 - CONCLUSION: Unremarkable examination of the pelvis. Davie Ferrell MD Lumbar Spine CT 09/26/16 1139 Signed Impressions: Service Date/Time: Monday, September 26, 2016 11:59 - CONCLUSION: Normal examination. Davie Ferrell MD Head CT 09/26/16 1139 Signed Impressions: Service Date/Time: Monday, September 26, 2016 11:56 - CONCLUSION: No acute intra-cranial injury Gerardo Webber MD Chest CT 09/26/16 1139 Signed Impressions: Service Date/Time: Monday, September 26, 2016 12:01 - CONCLUSION: Normal examination. Davie Ferrell MD Cervical Spine CT 09/26/16 1139 Signed Impressions: Service Date/Time: Monday, September 26, 2016 11:56 - CONCLUSION: No evidence of acute bony injury in the cervical spine. Degenerative changes and disc disease as described Gerardo Webber MD Abdomen/Pelvis CT 09/26/16 1139 Signed Impressions: Service Date/Time: Monday, September 26, 2016 11:59 - CONCLUSION: Normal examination. Davie Ferrell MD Shoulder X-Ray 09/26/16 0000 Signed Impressions: Service Date/Time: Monday, September 26, 2016 11:27 - CONCLUSION: Unremarkable single view examination of the left shoulder. Gerardo Webber MD Humerus X-Ray 09/26/16 0000 Signed Impressions: Service Date/Time: Monday, September 26, 2016 11:27 - CONCLUSION: Single view of the left humerus demonstrates the humerus is intact. The radial head is laterally subluxed from the capitellum. Humeral head and neck are unremarkable. Davie Ferrell MD Elbow X-Ray 09/26/16 0000 Signed Impressions: Service Date/Time: Monday, September 26, 2016 22:14 - CONCLUSION: Status post ORIF in reasonable alignment. Mikey Maria MD FACR Narrative Exam GENERAL: This is a 45-year-old man lying in bed. SKIN: Warm and dry. HEAD: Atraumatic. Normocephalic. EYES: PERRLA ENT: No nasal bleeding or discharge. Mucous membranes pink and moist. NECK: Trachea midline. No JVD. CARDIOVASCULAR: Regular rate and rhythm. RESPIRATORY: No accessory muscle use. Lungs are clear to auscultation. Breath sounds equal bilaterally. No distress or dyspnea. GASTROINTESTINAL: BS + x 4 quads. Abdomen soft, non-tender, nondistended. MUSCULOSKELETAL: Extremities without cyanosis, or edema. Bilateral hands and arms in splints and wrapped in Lawrence bandage. + peripheral pulses x 4 extremities. Warm with good capillary refill and sensation. MAEW. NEUROLOGICAL: Awake and alert. Normal speech and pattern. A/P Problem List: (1) Elbow fracture, right (2) Left elbow fracture Assessment and Plan BISHOP PAIUTE: This is a 45-year-old male who sustained a fall. He was working on [employer], and fell off the stilts and then further down a flight of stairs. ( The fall was approximately 3 feet from the stilts, then an additional 10 feet down the stairs). He was then pinned against the wall. No LOC. Priapism initially. (The patient's initial complaints were of bilateral elbow pain and back pain.) Upon arrival to the trauma bay he was able to move all 4 extremities. INJURIES: LEFT Elbow dislocation LEFT radius fx RIGHT elbow fx Procedures: 09/26: LEFT elbow reduced in ED. 09/26: ORIF LEFT elbow / radius fx ORIF RIGHT elbow / ulna / radius fx Consults: Orthopedics and hospitalist Diet: Regular ADA diet. Tolerating po diet. Encourage good po intake with each meal. Pulmonary: Encourage good pulmonary toileting. IS at bedside and pt encouraged to use. Rationale for use explained to patient, and verbalized understanding. PAIN Management: Percocet by mouth. Activity: OOB with assist. (NWB Bilater UE) PT and OT ordered and intensified to 7 day a week sessions. Blood glucose testing 4 times a day with sliding-scale insulin - low scale. Hospitalist consult are assisting in new-onset diabetes management and teaching. Hypertension: Added lisinopril 20 mg by mouth daily. GI prophylaxis: Pepcid at bedtime Bowel regimen: Colace and MOM. DVT prophylaxis: Mechanical VTE with SCDs. Chemical management with Lovenox 40 q day. DC Planning: Case management consulted for assistance with final discharge disposition. Patient may benefit from home health care with PT and OT. (This is a Workmen's Comp. case, and we cannot move forward until the patient can tell us who his employer is.) Emotional support provided to patient and family at bedside and plan of care discussed. Discussed with RN at bedside. Patient is hemodynamically stable and being managed on the med/surg floor. The exam, history, and the medical decision-making described in the above note were completed with the assistance of the mid-level provider. I reviewed and agree with the findings presented. I attest that I had a [id number] encounter with the patient on the same day, and personally performed and documented my assessment and findings in the medical record. Problem Qualifiers (1) Elbow fracture, right: Qualified Code: S42.401A - Elbow fracture, right, closed, initial encounter (2) Left elbow fracture: Qualified Code: S42.402A - Left elbow fracture, closed, initial encounter Chloe Medina Sep 29, 2016 13:09 Mansoor Packer MD Oct 02, 2016 08:20
[2016-09-29 16:00] VITALS: BP 123/75; PULSE 95; RESP 20; TEMP 98.5; O2SAT 20
[2016-09-29 16:09] LABS: BASOPHIL % 0.4 % (0.0-2.0); EOSINOPHIL # 0.1 TH/MM3 (0-0.4); EOSINOPHIL % 1.3 % (0.0-4.0); HEMATOCRIT 31.6 % (39.0-51.0); HEMO FLAGS DIFF FINAL; LYMPH % 21.3 % (9.0-44.0); LYMPHOCYTE # 1.6 TH/MM3 (1.0-4.8); MEAN CELL VOLUME 83.7 FL (80.0-100.0); MEAN CORPUSCULAR HEMOGLOBIN 28.6 PG (27.0-34.0); MEAN CORPUSCULAR HGB CONC 34.2 % (32.0-36.0); MONO % 9.6 % (0.0-8.0); NEUT % 67.4 % (16.0-70.0); PLATELET COUNT 196 TH/MM3 (150-450); RED BLOOD COUNT 3.77 MIL/MM3 (4.50-5.90); RED CELL DISTRIBUTION WIDTH 12.5 % (11.6-17.2); WHITE BLOOD COUNT 7.4 TH/MM3 (4.0-11.0)
[2016-09-29 20:26] VITALS: BP 113/74; PULSE 90; RESP 17; TEMP 99.7; O2SAT 95
[2016-09-29] MEDS: FAMOTIDINE 20 MG TAB PO SCH (21:18)
[2016-09-29 22:48] LABS: BICARBONATE 27.5 MEQ/L (21.0-32.0); POTASSIUM 4.4 MEQ/L (3.5-5.1)
[2016-09-30 00:31] VITALS: BP 116/63; PULSE 82; RESP 16; TEMP 98.4; O2SAT 96
[2016-09-30] MEDS: ACETAMINOPHEN/HYDROcodone 325 MG/10 MG TAB PO PRN ×3 (05:26→21:42)
[2016-09-30 05:34] LABS: AUTOMATED NEUTROPHIL # 3.9 TH/MM3 (1.8-7.7); BASOPHIL # 0.1 TH/MM3 (0-0.2); BASOPHIL % 0.8 % (0.0-2.0); EOSINOPHIL # 0.1 TH/MM3 (0-0.4); EOSINOPHIL % 2.3 % (0.0-4.0); HEMATOCRIT 30.8 % (39.0-51.0); HEMO FLAGS DIFF FINAL; LYMPHOCYTE # 1.5 TH/MM3 (1.0-4.8); MEAN CELL VOLUME 85.4 FL (80.0-100.0); MEAN CORPUSCULAR HEMOGLOBIN 29.2 PG (27.0-34.0); MEAN CORPUSCULAR HGB CONC 34.2 % (32.0-36.0); MONO % 13.7 % (0.0-8.0); NEUT % 60.2 % (16.0-70.0); PLATELET COUNT 215 TH/MM3 (150-450); RED BLOOD COUNT 3.61 MIL/MM3 (4.50-5.90); RED CELL DISTRIBUTION WIDTH 12.6 % (11.6-17.2); WHITE BLOOD COUNT 6.4 TH/MM3 (4.0-11.0)
[2016-09-30 05:35] LABS: BICARBONATE 29.5 MEQ/L (21.0-32.0); POTASSIUM 4.3 MEQ/L (3.5-5.1)
[2016-09-30] MEDS: INSULIN ASPART SUPPLEMENTAL SCALE SQ SCH ×4 (06:02→21:40)
--- NOTE | 2016-09-30 06:52 | PD.ORT.PN ---
Subjective Subjective Remarks Patient comfortable. Pain controlled. Objective Vitals Vital Signs Date Time Temp Pulse Resp B/P Pulse Ox O2 Delivery O2 Flow Rate FiO2 09/30/16 00:31 98.4 82 16 116/63 96 09/29/16 20:26 99.7 90 17 113/74 95 09/29/16 16:00 98.5 95 20 123/75 20 09/29/16 12:00 100.5 95 20 104/73 100 09/29/16 09:11 96 Nasal Cannula 2.00 09/29/16 08:00 98.7 90 18 110/69 100 I/O 09/29/16 09/29/16 09/29/16 09/30/16 09/30/16 09/30/16 07:00 15:00 23:00 07:00 15:00 23:00 Intake Total 360 ml 720 ml 720 ml Output Total 700 ml 650 ml Balance -340 ml 720 ml 70 ml Intake Oral 360 ml 720 ml 720 ml Output Urine Total 700 ml 650 ml # Voids 8 # Bowel Movements 0 0 0 Result Diagram: 09/30/16 0508 09/30/16 0508 Imaging Last 24 hours Impressions Thoracic Spine CT 09/26/161138 Signed Impressions: Service Date/Time: Monday, September 26, 2016 11:59 - CONCLUSION: Normal examination. Davie Ferrell MD Pelvis X-Ray 09/26/161138 Signed Impressions: Service Date/Time: Monday, September 26, 2016 11:27 - CONCLUSION: Unremarkable examination of the pelvis. Davie Ferrell MD Lumbar Spine CT 09/26/16 1139 Signed Impressions: Service Date/Time: Monday, September 26, 2016 11:59 - CONCLUSION: Normal examination. Davie Ferrell MD Head CT 09/26/16 1139 Signed Impressions: Service Date/Time: Monday, September 26, 2016 11:56 - CONCLUSION: No acute intra-cranial injury Gerardo Webber MD Chest X-Ray 09/26/169 Signed Impressions: Service Date/Time: Monday, September 26, 2016 11:27 - CONCLUSION: Normal examination. Davie Ferrell MD Chest CT 09/26/16 1139 Signed Impressions: Service Date/Time: Monday, September 26, 2016 12:01 - CONCLUSION: Normal examination. Davie Ferrell MD Cervical Spine CT 09/26/16 1139 Signed Impressions: Service Date/Time: Monday, September 26, 2016 11:56 - CONCLUSION: No evidence of acute bony injury in the cervical spine. Degenerative changes and disc disease as described Gerardo Webber MD Abdomen/Pelvis CT 09/26/16 1139 Signed Impressions: Service Date/Time: Monday, September 26, 2016 11:59 - CONCLUSION: Normal examination. Davie Ferrell MD Procedures 1) ORIF left elbow benita-articular with comminuted radial head fracture 2) ORIF right elbow high comminuted proximal ulna fracture dislocation and radial head fracture Objective Remarks Right elbow splint and preston wrap in place C/D/I numbness/tingling sensation to all digits good movement of digits good cap refill Left elbow splint and preston wrap in place C/D/I + sensation good movement of digits good cap refill Assessment & Plan Assessment and Plan POD #4 Pain management - Percocet Physical therapy - non weight bearing to bilateral upper extremities We will continue to monitor patient for pain management and numbness/tingling sensation to right hand D/C planning - anticipating home with [facility] tomorrow or Wednesday Mumtaz Santo Sep 30, 2016 06:52
[2016-09-30 08:00] VITALS: BP 103/66; PULSE 79; RESP 18; TEMP 97.8; O2SAT 98
[2016-09-30] MEDS ORDERED: BISACODYL EC 5 MG TABEC PO ONE (08:00)
[2016-09-30] MEDS ORDERED: BISACODYL 10 MG SUPP RECTAL ONE (08:00)
[2016-09-30] MEDS: DOCUSATE SODIUM 100 MG CAP PO SCH ×2 (08:11→20:36)
[2016-09-30] MEDS: MAGNESIUM HYDROXIDE SUSP 30 ML CUP PO PRN (08:12)
[2016-09-30] MEDS: metFORMIN HCL 500 MG TAB PO SCH ×2 (08:12→17:12)
[2016-09-30] MEDS: SODIUM CHLORIDE 0.9% FLUSH 5 ML FLUSH IVF SCH ×2 (08:13→20:36)
[2016-09-30] MEDS: BACITRACIN TOP OINT 15 GM TUBE TOP SCH ×2 (08:13→20:36)
[2016-09-30] MEDS: LISINOPRIL 20 MG TAB PO SCH (08:14)
[2016-09-30 12:00] VITALS: BP 130/73; PULSE 84; RESP 18; TEMP 98.3; O2SAT 97
--- NOTE | 2016-09-30 12:20 | HHI.PR ---
Subjective Subjective Notes PTD: 4 Patient states he is doing "terrible." He states that both his elbows still hurt, his left elbow hurts more. He is complaining of tingling to his hands and his fingers. He states getting out of bed and working with PT and OT. Objective Vitals/I&O Vital Signs Date Time Temp Pulse Resp B/P Pulse Ox O2 Delivery O2 Flow Rate FiO2 09/30/16 08:00 97.8 79 18 103/66 98 09/29/16 09:11 Nasal Cannula 2.00 09/28/16 12:30 21 Labs Laboratory Tests Test 09/29/16 09/30/16 15:15 05:08 White Blood Count 7.4 6.4 Red Blood Count 3.77 3.61 Hemoglobin 10.8 10.5 Hematocrit 31.6 30.8 Mean Corpuscular Volume 83.7 85.4 Mean Corpuscular Hemoglobin 28.6 29.2 Mean Corpuscular Hemoglobin 34.2 34.2 Concent Red Cell Distribution Width 12.5 12.6 Platelet Count 196 215 Mean Platelet Volume 9.3 8.8 Neutrophils (%) (Auto) 67.4 60.2 Lymphocytes (%) (Auto) 21.3 23.0 Monocytes (%) (Auto) 9.6 13.7 Eosinophils (%) (Auto) 1.3 2.3 Basophils (%) (Auto) 0.4 0.8 Neutrophils # (Auto) 5.0 3.9 Lymphocytes # (Auto) 1.6 1.5 Monocytes # (Auto) 0.7 0.9 Eosinophils # (Auto) 0.1 0.1 Basophils # (Auto) 0.0 0.1 CBC Comment DIFF FINAL DIFF FINAL Differential Comment Sodium Level 129 131 Potassium Level 4.4 4.3 Chloride Level 92 93 Carbon Dioxide Level 27.5 29.5 Anion Gap 10 9 Blood Urea Nitrogen 15 16 Creatinine 0.93 0.90 Estimat Glomerular Filtration 89 92 Rate Random Glucose 274 231 Calcium Level 8.8 8.7 Radiology Last Impressions Chest X-Ray 09/27/16 0000 Signed Impressions: Service Date/Time: Tuesday, September 27, 2016 04:41 - CONCLUSION: Cardiomegaly. No acute cardiopulmonary disease. Zohaib Mota MD Thoracic Spine CT 09/26/16 1139 Signed Impressions: Service Date/Time: Monday, September 26, 2016 11:59 - CONCLUSION: Normal examination. Davie Ferrell MD Pelvis X-Ray 09/26/16 1139 Signed Impressions: Service Date/Time: Monday, September 26, 2016 11:27 - CONCLUSION: Unremarkable examination of the pelvis. Davie Ferrell MD Lumbar Spine CT 09/26/16 1139 Signed Impressions: Service Date/Time: Monday, September 26, 2016 11:59 - CONCLUSION: Normal examination. Davie Ferrell MD Head CT 09/26/16 1139 Signed Impressions: Service Date/Time: Monday, September 26, 2016 11:56 - CONCLUSION: No acute intra-cranial injury Gerardo Webber MD Chest CT 09/26/16 1139 Signed Impressions: Service Date/Time: Monday, September 26, 2016 12:01 - CONCLUSION: Normal examination. Davei Ferrell MD Cervical Spine CT 09/26/16 1139 Signed Impressions: Service Date/Time: Monday, September 26, 2016 11:56 - CONCLUSION: No evidence of acute bony injury in the cervical spine. Degenerative changes and disc disease as described Gerardo Webber MD Abdomen/Pelvis CT 09/26/16 1139 Signed Impressions: Service Date/Time: Monday, September 26, 2016 11:59 - CONCLUSION: Normal examination. Davie Ferrell MD Shoulder X-Ray 09/26/16 0000 Signed Impressions: Service Date/Time: Monday, September 26, 2016 11:27 - CONCLUSION: Unremarkable single view examination of the left shoulder. Gerardo Webber MD Humerus X-Ray 09/26/16 0000 Signed Impressions: Service Date/Time: Monday, September 26, 2016 11:27 - CONCLUSION: Single view of the left humerus demonstrates the humerus is intact. The radial head is laterally subluxed from the capitellum. Humeral head and neck are unremarkable. Davie Ferrell MD Elbow X-Ray 09/26/16 0000 Signed Impressions: Service Date/Time: Monday, September 26, 2016 22:14 - CONCLUSION: Status post ORIF in reasonable alignment. Mikey Maria MD FACR Narrative Exam GENERAL: This is a 45-year-old man lying in bed. SKIN: Warm and dry. HEAD: Atraumatic. Normocephalic. EYES: PERRLA ENT: No nasal bleeding or discharge. Mucous membranes pink and moist. NECK: Trachea midline. No JVD. CARDIOVASCULAR: Regular rate and rhythm. RESPIRATORY: No accessory muscle use. Lungs are clear to auscultation. Breath sounds equal bilaterally. No distress or dyspnea. GASTROINTESTINAL: BS + x 4 quads. Abdomen soft, non-tender, nondistended. MUSCULOSKELETAL: Extremities without cyanosis, or edema. Bilateral hands and arms in splints and wrapped in Lawrence bandage. + peripheral pulses x 4 extremities. Warm with good capillary refill and sensation. MAEW. c/o tingling NEUROLOGICAL: Awake and alert. Normal speech and pattern. A/P Problem List: (1) Elbow fracture, right (2) Left elbow fracture Assessment and Plan KAKE: This is a 45-year-old male who sustained a fall. He was working on [employer], and fell off the stilts and then further down a flight of stairs. ( The fall was approximately 3 feet from the stilts, then an additional 10 feet down the stairs). He was then pinned against the wall. No LOC. Priapism initially. (The patient's initial complaints were of bilateral elbow pain and back pain.) Upon arrival to the trauma bay he was able to move all 4 extremities. INJURIES: LEFT Elbow dislocation LEFT radius fx RIGHT elbow fx Procedures: 09/26: LEFT elbow reduced in ED. 09/26: ORIF LEFT elbow / radius fx ORIF RIGHT elbow / ulna / radius fx Consults: Orthopedics and hospitalist Diet: Regular ADA diet. Tolerating po diet. Encourage good po intake with each meal. Pulmonary: Encourage good pulmonary toileting. IS at bedside and pt encouraged to use. Rationale for use explained to patient, and verbalized understanding. PAIN Management: Percocet by mouth. Adequate Neurontin po TID. Activity: OOB with assist. (NWB Bilater UE) PT and OT ordered and intensified to 7 day a week sessions. Blood glucose testing 4 times a day with sliding-scale insulin - low scale. ( May use his LUIS A hose for Accu-Cheks due to fingers with calluses.) Hospitalist consult are assisting in new-onset diabetes management and teaching. Hypertension: lisinopril 20 mg by mouth daily. GI prophylaxis: Pepcid at bedtime Bowel regimen: Colace and MOM. DVT prophylaxis: Mechanical VTE with SCDs. Chemical management with Lovenox 40 q day. DC Planning: Case management consulted for assistance with final discharge disposition. Patient may benefit from home health care with PT and OT. (This is a Workmen's Comp. case, and we cannot move forward until the patient can tell us who his employer is.) Emotional support provided to patient and family at bedside and plan of care discussed. Discussed with RN at bedside. Patient is hemodynamically stable and being managed on the med/surg floor. Hopeful to discharge tomorrow. The exam, history, and the medical decision-making described in the above note were completed with the assistance of the mid-level provider. I reviewed and agree with the findings presented. I attest that I had a [id number] encounter with the patient on the same day, and personally performed and documented my assessment and findings in the medical record. Problem Qualifiers (1) Elbow fracture, right: Qualified Code: S42.401A - Elbow fracture, right, closed, initial encounter (2) Left elbow fracture: Qualified Code: S42.402A - Left elbow fracture, closed, initial encounter Chloe Medina Sep 30, 2016 12:20 Mansoor Packer MD Oct 06, 2016 19:48
[2016-09-30] MEDS: ENOXAPARIN SODIUM 40 MG/0.4 ML SYRINGE SQ SCH (14:31)
[2016-09-30 16:00] VITALS: BP 121/69; PULSE 89; RESP 18; TEMP 100; O2SAT 97
[2016-09-30] MEDS: GABAPENTIN 300 MG CAP PO SCH (17:12)
[2016-09-30 20:00] VITALS: BP 163/85; PULSE 91; RESP 16; TEMP 98.8; O2SAT 98
[2016-09-30] MEDS: FAMOTIDINE 20 MG TAB PO SCH (21:40)
[2016-10-01] VITALS: BP 113/65; PULSE 82; RESP 16; TEMP 98.1; O2SAT 96
[2016-10-01] MEDS: ACETAMINOPHEN/HYDROcodone 325 MG/10 MG TAB PO PRN (06:32)
[2016-10-01] MEDS: INSULIN ASPART SUPPLEMENTAL SCALE SQ SCH ×4 (06:32→22:23)
[2016-10-01 08:00] VITALS: BP 110/69; PULSE 84; RESP 18; TEMP 97.7; O2SAT 98
[2016-10-01] MEDS ORDERED: HOSP BED1 (08:09)
--- NOTE | 2016-10-01 08:13 | MP ---
cc: MARCI GOTTLIEB M.D. Corrected Copy: 10/12/16 SAMINA [email or web address] DATE OF SURGERY 09/26/2016 PREOPERATIVE DIAGNOSIS Bilateral elbow fracture/dislocation with the right elbow highly comminuted proximal ulna fracture involving the olecranon process and shaft with dislocated and fractured radial head and the left elbow being a irreducible dislocation and a highly comminuted radial head fracture. POSTOPERATIVE DIAGNOSIS Bilateral elbow fracture/dislocation with the right elbow highly comminuted proximal ulna fracture involving the olecranon process and shaft with dislocated and fractured radial head and the left elbow being a irreducible dislocation and a highly comminuted radial head fracture. PROCEDURE 1. Right elbow open reduction internal fixation of highly comminuted Monte[place] fracture using interfragmentary screws and a Synthes specialty plate. 2. Left elbow open reduction of the elbow dislocation. 3. Bilateral open reduction internal fixation of the radial head using Synthes 2.4 cannulated headless screws with the left elbow being approached through a posterolateral approach and the right elbow being approached directly through the posterior approach through the olecranon [place] fracture. ANESTHESIA General SURGEON Marci Gottlieb MD [employer] [place] ESTIMATED BLOOD LOSS 400 cc DRAINS None SPECIMEN None COMPLICATIONS None known. INDICATION Gerardo Carvalho, whose real name is Kentrell Calixto, is an adult male who sustained an injury while at work today when he fell backwards off of stilts and sustained severe highly comminuted elbow fracture dislocations. He is indicated for surgical intervention on both. The risks and benefits thoroughly discussed and a detailed informed consent was obtained. It should be noted that clothing sales assistant, Mumtaz Santo, is an advanced registered nurse practitioner whose skill set was medically necessary for the performance of this operation. He assisted by retracting vital structures. He is helping with fracture reduction and helping with complex instrumentation. PROCEDURE The left elbow was addressed first. We attempted somewhat of a gentle closed reduction, but it would not go back in place. We did have fluoroscopy available. We made a posterior lateral approach and found large fracture fragments inside the joint. We teased these out of the joint and actually took them all the way out on the back field and meticulously provisionally clamped them and then used interfragmentary K-wire fixation. The fragments were similar to a pie made a five pieces and we had four of the five pieces. We had good fixation with these interfragmentary screws. Inside the elbow joint, there was scuffing articular cartilage on both sides of the joint. We thoroughly irrigated out and looked for the other fragments of bone, but were not able to identify it. We reduced the elbow directly and then we dislocated it so that we could again looked for fragments of bone. We were unable to find any other fragments of bone. We maintained the radial head, dislocated it and then we could align this and then we were able to proceed with inner fragmentary screws using the cannulated screw system with placement of a K-wire, drilling and then placing the self-tapping screws with excellent fixation. We then reduced the elbow and checked for stability of the elbow and overall acceptable. We irrigated out with copious amounts of irrigation and proceeded with repairing ligaments and fascia to further promote the stability of the elbow and then proceeded to close in layers with absorbable sutures, theodora on the skin. Xeroform applied, eventually a posterior molded splint was applied. Attention was drawn to the right upper extremity. We exsanguinated the limb and did a direct posterior incision and then went directly through the olecranon fracture fragment to gain access to the radial head which was a dislocated and there were three main fragments of bone and we were able to placed interfragmentary screws in this and align the radial head on top of the radius and then placed our interfragmentary screws from the head to the shaft and then we were able to reduce this to the capitellum and thoroughly irrigate out the elbow joint. There was one fracture fragment anteriorly that eventually we saw on the lateral view and we tried to remove this. We had a highly comminuted shaft and olecranon fragments that we piecemeal together and placed interfragmentary screws. We used K-wires and clamps and eventually final fixation with the plate and overall we had good range of motion without crepitation. Again, there was one bony fragment still seen in the anterior compartment. We were unable to remove this. We felt that the elbow was stable and had reasonable function despite having gouges of articular cartilage associated with fracture dislocation on both the ulnar side and the humeral side. We now irrigated out with copious amounts of irrigation and proceeded to close in layers with absorbable suture, theodora on the skin. A bilateral posterior mold splint was applied. The patient was awoken and returned to the recovery room in stable condition. MD CHAZ Gilbert/CLAUDIA /8:06 PM /11:19 AM
--- NOTE | 2016-10-01 08:14 | PD.ORT.PN ---
Subjective Subjective Remarks Patient comfortable. Pain controlled. Patient states he is ready to be discharge. Objective Vitals Vital Signs Date Time Temp Pulse Resp B/P Pulse Ox O2 Delivery O2 Flow Rate FiO2 10/01/16 00:00 98.1 82 16 113/65 96 09/30/16 20:00 98.8 91 16 163/85 98 09/30/16 16:00 100.0 89 18 121/69 97 09/30/16 12:00 98.3 84 18 130/73 97 I/O 09/30/16 09/30/16 09/30/16 10/01/16 10/01/16 10/01/16 07:00 15:00 23:00 07:00 15:00 23:00 Intake Total 360 ml 1250 ml 480 ml 480 ml Output Total 700 ml 1 ml Balance -340 ml 1249 ml 480 ml 480 ml Intake Oral 360 ml 1250 ml 480 ml 480 ml Output Urine Total 700 ml Stool Total 1 ml # Voids 5 2 2 # Bowel Movements 0 2 1 1 Result Diagram: 09/30/16 0508 10/01/16 0434 Imaging Last 24 hours Impressions Thoracic Spine CT 09/26/161138 Signed Impressions: Service Date/Time: Monday, September 26, 2016 11:59 - CONCLUSION: Normal examination. Davie Ferrell MD Pelvis X-Ray 09/26/161138 Signed Impressions: Service Date/Time: Monday, September 26, 2016 11:27 - CONCLUSION: Unremarkable examination of the pelvis. Davie Ferrell MD Lumbar Spine CT 09/26/161138 Signed Impressions: Service Date/Time: Monday, September 26, 2016 11:59 - CONCLUSION: Normal examination. Davie Ferrell MD Head CT 09/26/161138 Signed Impressions: Service Date/Time: Monday, September 26, 2016 11:56 - CONCLUSION: No acute intra-cranial injury Gerardo Webber MD Chest X-Ray 09/26/161138 Signed Impressions: Service Date/Time: Monday, September 26, 2016 11:27 - CONCLUSION: Normal examination. Davie Ferrell MD Chest CT 09/26/169 Signed Impressions: Service Date/Time: Monday, September 26, 2016 12:01 - CONCLUSION: Normal examination. Davie Ferrell MD Cervical Spine CT 09/26/16 1139 Signed Impressions: Service Date/Time: Monday, September 26, 2016 11:56 - CONCLUSION: No evidence of acute bony injury in the cervical spine. Degenerative changes and disc disease as described Gerardo Webber MD Abdomen/Pelvis CT 09/26/16 1139 Signed Impressions: Service Date/Time: Monday, September 26, 2016 11:59 - CONCLUSION: Normal examination. Davie Ferrell MD Procedures 1) ORIF left elbow benita-articular with comminuted radial head fracture 2) ORIF right elbow high comminuted proximal ulna fracture dislocation and radial head fracture Objective Remarks Right elbow splint and preston wrap in place C/D/I numbness/tingling sensation to all digits good movement of digits good cap refill Left elbow splint and preston wrap in place C/D/I + sensation good movement of digits good cap refill Assessment & Plan Assessment and Plan POD #5 Pain management - [place] DVT prophylaxis - Lovenox Physical therapy - non weight bearing to bilateral upper extremities Patient is requesting a hospital bed for home. Orthopedically stable for discharge. D/C planning - anticipating home with [facility] today. F/U in [address] Elizabeth or MOISES in office. Mumtaz Santo Oct 01, 2016 08:14
[2016-10-01] MEDS: BACITRACIN TOP OINT 15 GM TUBE TOP SCH ×2 (09:00→21:00)
[2016-10-01] MEDS: metFORMIN HCL 500 MG TAB PO SCH ×2 (09:31→17:28)
[2016-10-01] MEDS: GABAPENTIN 300 MG CAP PO SCH (09:31)
[2016-10-01] MEDS: SODIUM CHLORIDE 0.9% FLUSH 5 ML FLUSH IVF SCH ×2 (09:31→22:23)
[2016-10-01] MEDS: LISINOPRIL 20 MG TAB PO SCH (09:31)
[2016-10-01] MEDS: DOCUSATE SODIUM 100 MG CAP PO SCH ×2 (09:31→22:07)
[2016-10-01 12:00] VITALS: BP 120/56; PULSE 94; RESP 18; TEMP 97.5; O2SAT 95
[2016-10-01] MEDS ORDERED: HYDR-3583 PO (14:01)
--- NOTE | 2016-10-01 14:47 | HHI.DS ---
Discharge Summary Admission Date Sep 26, 2016 at 12:47 Discharge Date: Oct 01, 2016 Admitting Diagnosis right elbow fracture, left elbow dislocation with fracture reduced, (1) Elbow fracture, right (2) Left elbow fracture Brief History S/P trauma: fall from stilts then down a flight of stairs. CBC/BMP: 09/30/16 0508 10/01/16 1233 Significant Findings Laboratory Tests Test 09/29/16 09/30/16 09/30/16 10/01/16 15:15 05:08 20:36 04:34 Red Blood Count 3.77 MIL/MM3 3.61 MIL/MM3 (4.50-5.90) (4.50-5.90) Hemoglobin 10.8 GM/DL 10.5 GM/DL (13.0-17.0) (13.0-17.0) Hematocrit 31.6 % 30.8 % (39.0-51.0) (39.0-51.0) Monocytes (%) (Auto) 9.6 % (0.0-8.0) 13.7 % (0.0-8.0) Sodium Level 129 MEQ/L 131 MEQ/L (136-145) (136-145) Chloride Level 92 MEQ/L 93 MEQ/L (98-107) (98-107) Random Glucose 274 MG/DL 231 MG/DL 275 MG/DL 272 MG/DL (74-106) (74-106) (74-106) (74-106) Test 10/01/16 12:33 Random Glucose 262 MG/DL (74-106) Imaging Last Impressions Chest X-Ray 09/27/16 0000 Signed Impressions: Service Date/Time: Tuesday, September 27, 2016 04:41 - CONCLUSION: Cardiomegaly. No acute cardiopulmonary disease. Zohaib Mota MD Thoracic Spine CT 09/26/16 1139 Signed Impressions: Service Date/Time: Monday, September 26, 2016 11:59 - CONCLUSION: Normal examination. Davie Ferrell MD Pelvis X-Ray 09/26/16 1139 Signed Impressions: Service Date/Time: Monday, September 26, 2016 11:27 - CONCLUSION: Unremarkable examination of the pelvis. Davie Ferrell MD Lumbar Spine CT 09/26/16 1139 Signed Impressions: Service Date/Time: Monday, September 26, 2016 11:59 - CONCLUSION: Normal examination. Davie Ferrell MD Head CT 09/26/16 1139 Signed Impressions: Service Date/Time: Monday, September 26, 2016 11:56 - CONCLUSION: No acute intra-cranial injury Gerardo Webber MD Chest CT 09/26/16 1139 Signed Impressions: Service Date/Time: Monday, September 26, 2016 12:01 - CONCLUSION: Normal examination. Davie Ferrell MD Cervical Spine CT 09/26/16 1139 Signed Impressions: Service Date/Time: Monday, September 26, 2016 11:56 - CONCLUSION: No evidence of acute bony injury in the cervical spine. Degenerative changes and disc disease as described Gerardo Webber MD Abdomen/Pelvis CT 09/26/16 1139 Signed Impressions: Service Date/Time: Monday, September 26, 2016 11:59 - CONCLUSION: Normal examination. Davie Ferrell MD Shoulder X-Ray 09/26/16 0000 Signed Impressions: Service Date/Time: Monday, September 26, 2016 11:27 - CONCLUSION: Unremarkable single view examination of the left shoulder. Gerardo Webber MD Humerus X-Ray 09/26/16 0000 Signed Impressions: Service Date/Time: Monday, September 26, 2016 11:27 - CONCLUSION: Single view of the left humerus demonstrates the humerus is intact. The radial head is laterally subluxed from the capitellum. Humeral head and neck are unremarkable. Davie Ferrell MD Elbow X-Ray 09/26/16 0000 Signed Impressions: Service Date/Time: Monday, September 26, 2016 22:14 - CONCLUSION: Status post ORIF in reasonable alignment. Mikey Maria MD FACR PE at Discharge GENERAL: 45-year-old well-nourished well-developed male lying in bed. SKIN: Warm and dry. HEAD: Normocephalic. EYES: PERRL ENT: No nasal bleeding or discharge. Mucous membranes pink and moist. NECK: Trachea midline. No JVD. CARDIOVASCULAR: Regular rate and rhythm. RESPIRATORY: No accessory muscle use. Lungs are clear to auscultation. Breath sounds equal bilaterally. No distress or dyspnea. GASTROINTESTINAL: Abdomen soft, non-tender, nondistended. + BS. MUSCULOSKELETAL: Extremities without cyanosis, or edema. Bilateral arms with soft splint in place. + peripheral pulses x 4 extremities. Warm with good capillary refill and sensation. MAEW. NEUROLOGICAL: Awake and alert. Normal speech and pattern. Hospital Course [place]: Fall. Fell off of stilts and then further down a flight of stairs. (3 feet from stilts - then 10 feet down the stairs). He was then pinned against the wall. No LOC. Initial complaints of bilateral elbow and back pain. INJURIES: LEFT Elbow dislocation LEFT radius fx RIGHT elbow fx Procedures: 09/26: LEFT elbow reduced in ED. 09/26: ORIF LEFT elbow / radius fx ORIF RIGHT elbow / ulna / radius fx Diet: ADA, tolerating well. Pulm: IS, acapella, EZpap. Encouraged home use. Pain: Percocet. Neurontin DC'd, patient reports increased anxiety since taking med. Activity: OOB. (NWB BILAT UE) PT and OT evaluating and recommend [facility] PT. GI: Pepcid Bowel: Colace and MOM. LBM 10/01. DVT: SCD's. Lovenox Maintain right arm sling. Follow-up with Ortho in 2 weeks as an outpatient. Follow-up with PCP as an outpatient. Patient is clear from trauma surgery standpoint to safely discharge home with home health care PT. Pt Condition on Discharge: Stable Discharge Disposition: Disch w/ Home Health Serv Discharge Instructions DIET: Follow Instructions for: As Tolerated, No Restrictions Activities you can perform: See Additionl Instruction Activities to Avoid: Weight Bearing Other Activity Instructions: Non-weight bearing to bilateral upper extremities. Liliane Mead Oct 01, 2016 14:47 Shannon Landon MD Oct 08, 2016 16:29
[2016-10-01] MEDS: ENOXAPARIN SODIUM 40 MG/0.4 ML SYRINGE SQ SCH (15:38)
[2016-10-01] MEDS: INSULIN HUMAN NPH 1,000 UNITS/10 ML VIAL SQ SCH (15:45)
[2016-10-01 16:00] VITALS: BP 102/64; PULSE 89; RESP 18; TEMP 99.9; O2SAT 97
[2016-10-01 20:00] VITALS: BP 125/80; PULSE 93; RESP 20; TEMP 99.8; O2SAT 95
[2016-10-01] MEDS: PANTOPRAZOLE SOD 40 MG DELAYED RELEASE TAB PO SCH (22:07)
[2016-10-02] VITALS: BP 129/66; PULSE 85; RESP 20; TEMP 99.2; O2SAT 96
[2016-10-02 04:00] VITALS: BP 115/60; PULSE 87; RESP 20; TEMP 99; O2SAT 96
[2016-10-02] MEDS: INSULIN ASPART SUPPLEMENTAL SCALE SQ SCH ×2 (07:23→12:15)
[2016-10-02 08:00] VITALS: BP 159/106; PULSE 92; RESP 16; TEMP 98.5; O2SAT 97
[2016-10-02] MEDS: PANTOPRAZOLE SOD 40 MG DELAYED RELEASE TAB PO SCH (08:11)
[2016-10-02] MEDS: MAGNESIUM HYDROXIDE SUSP 30 ML CUP PO PRN (08:11)
[2016-10-02] MEDS: metFORMIN HCL 500 MG TAB PO SCH (08:12)
[2016-10-02] MEDS: LISINOPRIL 20 MG TAB PO SCH (08:12)
[2016-10-02] MEDS: DOCUSATE SODIUM 100 MG CAP PO SCH (08:12)
[2016-10-02] MEDS: SODIUM CHLORIDE 0.9% FLUSH 5 ML FLUSH IVF SCH (08:13)
[2016-10-02] MEDS: INSULIN HUMAN NPH 1,000 UNITS/10 ML VIAL SQ SCH (08:13)
[2016-10-02] MEDS: BACITRACIN TOP OINT 15 GM TUBE TOP SCH (08:13)
[2016-10-02] MEDS ORDERED: PANT40TA3 PO (09:43)
[2016-10-02] MEDS ORDERED: METF500 PO (09:46)
--- NOTE | 2016-10-02 10:57 | PD.ORT.PN ---
Subjective Subjective Remarks Patient comfortable Objective Vitals Vital Signs Date Time Temp Pulse Resp B/P Pulse Ox O2 Delivery O2 Flow Rate FiO2 10/02/16 08:00 98.5 92 16 159/106 97 10/02/16 04:00 99.0 87 20 115/60 96 10/02/16 00:00 99.2 85 20 129/66 96 10/01/16 20:00 99.8 93 20 125/80 95 10/01/16 16:00 99.9 89 18 102/64 97 10/01/16 12:00 97.5 94 18 120/56 95 I/O 10/01/16 10/01/16 10/01/16 10/02/16 10/02/16 10/02/16 07:00 15:00 23:00 07:00 15:00 23:00 Intake Total 1680 ml 380 ml Output Total 380 ml Balance 1680 ml 0 ml Intake Oral 1680 ml 380 ml Output Urine Total 380 ml # Voids 5 # Bowel Movements 2 0 Result Diagram: 09/30/16 0508 10/01/16 1233 Imaging Last 24 hours Impressions Thoracic Spine CT 09/26/161138 Signed Impressions: Service Date/Time: Monday, September 26, 2016 11:59 - CONCLUSION: Normal examination. Davie Ferrell MD Pelvis X-Ray 09/26/161138 Signed Impressions: Service Date/Time: Monday, September 26, 2016 11:27 - CONCLUSION: Unremarkable examination of the pelvis. Davie Ferrell MD Lumbar Spine CT 09/26/161138 Signed Impressions: Service Date/Time: Monday, September 26, 2016 11:59 - CONCLUSION: Normal examination. Davie Ferrell MD Head CT 09/26/161138 Signed Impressions: Service Date/Time: Monday, September 26, 2016 11:56 - CONCLUSION: No acute intra-cranial injury Gerardo Webber MD Chest X-Ray 09/26/161138 Signed Impressions: Service Date/Time: Monday, September 26, 2016 11:27 - CONCLUSION: Normal examination. Davie Ferrell MD Chest CT 09/26/169 Signed Impressions: Service Date/Time: Monday, September 26, 2016 12:01 - CONCLUSION: Normal examination. Davie Ferrell MD Cervical Spine CT 09/26/16 1139 Signed Impressions: Service Date/Time: Monday, September 26, 2016 11:56 - CONCLUSION: No evidence of acute bony injury in the cervical spine. Degenerative changes and disc disease as described Gerardo Webber MD Abdomen/Pelvis CT 09/26/16 1139 Signed Impressions: Service Date/Time: Monday, September 26, 2016 11:59 - CONCLUSION: Normal examination. Davie Ferrell MD Procedures 1) ORIF left elbow benita-articular with comminuted radial head fracture 2) ORIF right elbow high comminuted proximal ulna fracture dislocation and radial head fracture Objective Remarks Right elbow splint and preston wrap in place C/D/I numbness/tingling sensation to all digits-improving limited finger flexion and extension good cap refill Left elbow splint and preston wrap in place C/D/I + sensation good movement of digits good cap refill Assessment & Plan Assessment and Plan POD #6 Pain management - [place] DVT prophylaxis - Lovenox Physical therapy - non weight bearing to bilateral upper extremities Patient is requesting a hospital bed for home. Orthopedically stable for discharge. D/C planning - anticipating home with [facility] today. ok to D/C home F/U in 1 1/[address] Elizabeth or MOISES in office. Bebeto Elizabeth MD Oct 02, 2016 10:56
[2016-10-02 12:00] VITALS: BP 140/109; PULSE 93; RESP 16; TEMP 98.3; O2SAT 98
[2016-10-02] MEDS: ENOXAPARIN SODIUM 40 MG/0.4 ML SYRINGE SQ SCH (12:15)
--- NOTE | 2016-10-02 16:10 | HHI.PR ---
Subjective Subjective Notes Patient was discharged yesterday, but stayed due to dyspepsia. No complaints today. Family at bedside. Objective Vitals/I&O Vital Signs Date Time Temp Pulse Resp B/P Pulse Ox O2 Delivery O2 Flow Rate FiO2 10/02/16 12:00 98.3 93 16 140/109 98 09/29/16 09:11 Nasal Cannula 2.00 09/28/16 12:30 21 Radiology Last Impressions Chest X-Ray 09/27/16 0000 Signed Impressions: Service Date/Time: Tuesday, September 27, 2016 04:41 - CONCLUSION: Cardiomegaly. No acute cardiopulmonary disease. Zohaib Mota MD Thoracic Spine CT 09/26/16 1139 Signed Impressions: Service Date/Time: Monday, September 26, 2016 11:59 - CONCLUSION: Normal examination. Davie Ferrell MD Pelvis X-Ray 09/26/16 1139 Signed Impressions: Service Date/Time: Monday, September 26, 2016 11:27 - CONCLUSION: Unremarkable examination of the pelvis. Davie Ferrell MD Lumbar Spine CT 09/26/16 1139 Signed Impressions: Service Date/Time: Monday, September 26, 2016 11:59 - CONCLUSION: Normal examination. Davie Ferrell MD Head CT 09/26/16 1139 Signed Impressions: Service Date/Time: Monday, September 26, 2016 11:56 - CONCLUSION: No acute intra-cranial injury Gerardo Webber MD Chest CT 09/26/16 1139 Signed Impressions: Service Date/Time: Monday, September 26, 2016 12:01 - CONCLUSION: Normal examination. Davie Ferrell MD Cervical Spine CT 09/26/16 1139 Signed Impressions: Service Date/Time: Monday, September 26, 2016 11:56 - CONCLUSION: No evidence of acute bony injury in the cervical spine. Degenerative changes and disc disease as described Gerardo Webber MD Abdomen/Pelvis CT 09/26/16 1139 Signed Impressions: Service Date/Time: Monday, September 26, 2016 11:59 - CONCLUSION: Normal examination. Davie Ferrell MD Shoulder X-Ray 09/26/16 0000 Signed Impressions: Service Date/Time: Monday, September 26, 2016 11:27 - CONCLUSION: Unremarkable single view examination of the left shoulder. Gerardo Webber MD Humerus X-Ray 09/26/16 0000 Signed Impressions: Service Date/Time: Monday, September 26, 2016 11:27 - CONCLUSION: Single view of the left humerus demonstrates the humerus is intact. The radial head is laterally subluxed from the capitellum. Humeral head and neck are unremarkable. Davie Ferrell MD Elbow X-Ray 09/26/16 0000 Signed Impressions: Service Date/Time: Monday, September 26, 2016 22:14 - CONCLUSION: Status post ORIF in reasonable alignment. Mikey Maria MD FACR Narrative Exam GENERAL: 45-year-old well-nourished well-developed male lying in bed. SKIN: Warm and dry. HEAD: Normocephalic. EYES: PERRL ENT: No nasal bleeding or discharge. Mucous membranes pink and moist. NECK: Trachea midline. No JVD. CARDIOVASCULAR: Regular rate and rhythm. RESPIRATORY: No accessory muscle use. Lungs are clear to auscultation. Breath sounds equal bilaterally. No distress or dyspnea. GASTROINTESTINAL: Abdomen soft, non-tender, nondistended. + BS. MUSCULOSKELETAL: Extremities without cyanosis, or edema. Bilateral arms with soft splint in place. + peripheral pulses x 4 extremities. Warm with good capillary refill and sensation. MAEW. NEUROLOGICAL: Awake and alert. Normal speech and pattern. A/P Problem List: (1) Elbow fracture, right (2) Left elbow fracture Assessment and Plan INJURIES: LEFT Elbow dislocation LEFT radius fx RIGHT elbow fx Procedures: 09/26: LEFT elbow reduced in ED. 09/26: ORIF LEFT elbow / radius fx ORIF RIGHT elbow / ulna / radius fx Diet: ADA, tolerating well. Pulm: IS, acapella, EZpap. Encouraged home use. Pain: Percocet. Neurontin DC'd, patient reports increased anxiety since taking med. Activity: OOB. (NWB BILAT UE) PT and OT evaluating and recommend [facility] PT. GI: Pepcid Bowel: Colace and MOM. LBM 10/01. DVT: SCD's. Lovenox Patient was discharged yesterday, but stayed due to dyspepsia. RX provided for Protonix. Patient to discharge home today. Problem Qualifiers (1) Elbow fracture, right: Qualified Code: S42.401A - Elbow fracture, right, closed, initial encounter (2) Left elbow fracture: Qualified Code: S42.402A - Left elbow fracture, closed, initial encounter Liliane Mead Oct 02, 2016 16:10
== END 2016-10-02 13:42 | disposition home or self-care (01) | DRG 511 ==
LOC: NEPI 11:32 → MERGE 12:47 → EDBD 12:47 → NEDA 12:47 → N06B 15:33
PROVIDERS: ADMIT Surgery; ATTEND Surgery
PROC: 0PSH04Z Reposition Right Radius with Internal Fixation Device, Open Approach (ICD-10-PCS; 2016-09-26)
PROC: 0PSK04Z Reposition Right Ulna with Internal Fixation Device, Open Approach (ICD-10-PCS; principal; 2016-09-26 17:25)
DX: S52.271A Monteggia's fracture of right ulna, initial encounter for closed fracture (principal); E87.1 Hypo-osmolality and hyponatremia; I10 Essential (primary) hypertension; E11.9 Type 2 diabetes mellitus without complications; M54.5 Low back pain; F41.9 Anxiety disorder, unspecified; R10.13 Epigastric pain; W10.8XXA Fall (on) (from) other stairs and steps, initial encounter; Y93.89 Activity, other specified; Y99.0 Civilian activity done for income or pay
CPT/HCPCS: 24600; 70450; 71010; 71260; 72125; 72128; 72131; 72170; 73020; 73070; 73080; 74177; 76000; 80048; 82435; 82565; 82947; 82948; 83036; 83735; 84132; 84295; 84520; 85007; 85025; 85027; 85610; 85730; 86850; 86900; 86901; 90471; 90715; 94150; 94640; 94667; 94668; 96374; 96375; 99152; 99291; A0431-QM-IH; A0436-QM-IH; C1713; G0390; J0690; J1580; J1650; J1815; J2270; J2405; J3010; J3370; J7030; J7040; J7050; J7120; L0150

== ENCOUNTER 2017-06-05 14:14 | Inpatient (IN) | payer OTHER ==
[2017-06-05] VITALS (7 sets, daily range): BP systolic 118–135; BP diastolic 68–88; PULSE 83–92; RESP 16–20; TEMP 98.4–98.8; O2SAT 98–100
[~2017-06-05] VITALS: Ht 182.9 cm; Wt 79.6 kg
[~2017-06-05 14:14] MED LIST changes: -CIPR500T2 PO; +DOCU1CAP39 PO; +HOSP BED1; +METF500 PO; +MILKSUS PO; +PANT40TA3 PO; -VENTAER INH; -Z.0.NO CURRENT MEDS
--- NOTE | 2017-06-05 14:35 | PD ---
Physical Exam Date Seen by Provider: Jun 05, 2017 Time Seen by Provider: 14:29 Narrative 46-year-old male presents to the emergency department status post Depo- Medrol injection to the right elbow status post bilateral elbow fractures requiring open reduction and fixation. Patient states he got a shot 3 days ago and since that time he has had almost 20 pound weight loss, polyuria, polydipsia , and now is dizzy and weak. Patient is able to eat. Patient has no history of diabetes previous to this. He has no fever or chills. Blood sugar in triage was 542. Vital signs are reviewed. Patient is awaiting mental placement. Data Data Last Documented VS Vital Signs Date Time Temp Pulse Resp B/P (MAP) Pulse Ox O2 Delivery O2 Flow Rate FiO2 06/05/17 14:16 98.4 92 20 135/88 (104) 98 Room Air [facility] Medical Record Reviewed: Yes Supervised Visit with YAZAN: Yes Condition: Stable Jasmeet Parker Jun 05, 2017 14:35
--- NOTE | 2017-06-05 14:43 | PD ---
HPI Chief Complaint: Medical Clearance Time Seen by Provider: 14:43 Travel History International Travel<30 days: No Contact w/Intl Traveler<30days: No Traveled to known affect area: No History of Present Illness HPI 46-year-old male came to the emergency room for generalized weakness and loss of 14 pounds in 3 days. His friend is here with him who is giving additional history. Patient has had good appetite and no vomiting or diarrhea. However he has polyuria and polydipsia. There was a blood sugar done in triage which showed 544 level. Patient is not a known diabetic. He was involved in a trauma as a fall from a tree. He had injured and broken his right elbow that required ORIF. This was done in September. In March the hardware was taken out. He went to see Dr. Elizabeth 4 days ago who tried to manipulate the elbow and gave him hydrocortisone shot. As per the friend of his symptoms started since then. Vital signs were stable. No history of fever or chills. [facility] Past Medical History Narrative Medical List of his past medical, surgical, social and family history is reviewed from the nursing note. Diabetes: Yes Immunizations Current: Yes Past Surgical History Other Surgery: Yes (elbows) Social History Alcohol Use: No Tobacco Use: No Substance Use: No Allergies-Medications (Allergen,Severity, Reaction): Coded Allergies: acetaminophen (Verified Allergy, Severe, dizziness and confusion, 06/05/17) hydrocodone (Verified Allergy, Severe, dizziness and confusion, 06/05/17) morphine (Verified Allergy, Severe, rapid heart rate, 06/05/17) Comments List of his allergies reviewed from the nursing note. Reported Meds & Prescriptions Reported Meds & Active Scripts Active Narrative Medication List of his home medications reviewed from the nursing note. Review of Systems Except as stated in HPI: all other systems reviewed are Neg Physical Exam Narrative GENERAL: Awake, alert, anxious, mild distress SKIN: Focused skin assessment warm/dry. HEAD: Atraumatic. Normocephalic. EYES: Pupils equal and round. No scleral icterus. No injection or drainage. ENT: No nasal bleeding or discharge. Dry mucous membrane NECK: Trachea midline. No JVD. CARDIOVASCULAR: Regular rate and rhythm. No murmur appreciated. RESPIRATORY: No accessory muscle use. Clear to auscultation. Breath sounds equal bilaterally. GASTROINTESTINAL: Abdomen soft, non-tender, nondistended. Hepatic and splenic margins not palpable. MUSCULOSKELETAL: Right elbow postoperative changes, decreased range of motion due to stiffness. No clubbing. No cyanosis. No edema. NEUROLOGICAL: Awake and alert. No obvious cranial nerve deficits. Motor grossly within normal limits. Normal speech. PSYCHIATRIC: Appropriate mood and affect; insight and judgment normal. Data Data Last Documented VS Orders Orders Electrocardiogram (06/05/17 14:57) Complete Blood Count With Diff (06/05/17 14:57) Comprehensive Metabolic Panel (06/05/17 14:57) Beta Hydroxybutyrate (Acetone) (06/05/17 14:57) Urinalysis - C+S If Indicated (06/05/17 14:57) Blood Gas Venous (Vbg) (06/05/17 14:57) Blood Glucose (06/05/17 14:57) Blood Glucose (06/05/17 15:57) Ecg Monitoring (06/05/17 14:57) Iv Access Insert/Monitor (06/05/17 14:57) Oximetry (06/05/17 14:57) NPO (06/05/17 14:57) Sodium Chlor 0.9% 1000 Ml Inj (Ns 1000 M (06/05/17 14:57) Sodium Chloride 0.9% Flush (Ns Flush) (06/05/17 15:00) Insulin Human Regular Inj (Novolin R Inj (06/05/17 15:00) Sodium Chlor 0.9% 1000 Ml Inj (Ns 1000 M (06/05/17 17:30) Sodium Chlor 0.9% 1000 Ml Inj (Ns 1000 M (06/05/17 17:30) Admit Order (Ed Use Only) (06/05/17 17:41) Magnesium (Mg) (06/05/17 15:30) Phosphorus (Po4) (06/05/17 15:30) Labs Laboratory Tests Test 06/05/17 15:02 06/05/17 15:30 06/05/17 15:50 Blood Gas Puncture Site CL Blood Gas Patient Temperature 98.6 Venous Blood pH 7.35 Venous Blood Partial Pressure CO2 34 mmHg Venous Blood Partial Pressure O2 41 mmHg Venous Blood HCO3 18 mmol/L Venous Blood Oxygen Saturation 73 % Venous Blood Oxygen Content 15.0 Vol % Venous Blood Base Excess -6.2 mmol/L Oxygen Delivery Device RA White Blood Count 9.7 TH/MM3 Red Blood Count 5.47 MIL/MM3 Hemoglobin 15.1 GM/DL Hematocrit 45.6 % Mean Corpuscular Volume 83.4 FL Mean Corpuscular Hemoglobin 27.5 PG Mean Corpuscular Hemoglobin Concent 33.0 % Red Cell Distribution Width 13.1 % Platelet Count 268 TH/MM3 Mean Platelet Volume 9.7 FL Neutrophils (%) (Auto) 71.1 % Lymphocytes (%) (Auto) 17.9 % Monocytes (%) (Auto) 10.7 % Eosinophils (%) (Auto) 0.1 % Basophils (%) (Auto) 0.2 % Neutrophils # (Auto) 6.9 TH/MM3 Lymphocytes # (Auto) 1.7 TH/MM3 Monocytes # (Auto) 1.0 TH/MM3 Eosinophils # (Auto) 0.0 TH/MM3 Basophils # (Auto) 0.0 TH/MM3 CBC Comment DIFF FINAL Differential Comment Blood Urea Nitrogen 33 MG/DL Creatinine 1.73 MG/DL Random Glucose 557 MG/DL Total Protein 8.8 GM/DL Albumin 4.4 GM/DL Calcium Level 8.9 MG/DL Phosphorus Level 3.3 MG/DL Magnesium Level 2.2 MG/DL Alkaline Phosphatase 117 U/L Aspartate Amino Transf (AST/SGOT) 14 U/L Alanine Aminotransferase (ALT/SGPT) 22 U/L Total Bilirubin 0.9 MG/DL Sodium Level 123 MEQ/L Potassium Level 4.8 MEQ/L Chloride Level 90 MEQ/L Carbon Dioxide Level 17.1 MEQ/L Anion Gap 16 MEQ/L Estimat Glomerular Filtration Rate 43 ML/MIN Hemoglobin A1c 12.7 % Triglycerides Level 447 MG/DL Cholesterol Level 237 MG/DL LDL Cholesterol MG/DL HDL Cholesterol 40.2 MG/DL Cholesterol/HDL Ratio 5.89 RATIO B-Hydroxybutyrate 3.91 MMOL/L Urine Color LIGHT-YELLOW Urine Turbidity CLEAR Urine pH 6.0 Urine Specific [place] 1.024 Urine Protein NEG mg/dL Urine Glucose (UA) 1000 mg/dL Urine Ketones 80 mg/dL Urine Occult Blood NEG Urine Nitrite NEG Urine Bilirubin NEG Urine Urobilinogen LESS THAN 2.0 MG/DL Urine Leukocyte Esterase NEG Urine WBC LESS THAN 1 /hpf Microscopic Urinalysis Comment CULT NOT INDICATED MDM Medical Decision Making Medical Screen Exam Complete: Yes Emergency Medical Condition: Yes Medical Record Reviewed: Yes Interpretation(s) Twelve-lead EKG was reviewed by me. Normal sinus rhythm, normal axis, nonspecific ST-T wave changes. Heart rate of 91 bpm. Differential Diagnosis New onset diabetes, DKA, dehydration Narrative Course 3:33 PM awaiting for the blood test result. Patient was given subcutaneous insulin 10 units. Her ABG is back and bicarbonate is slightly low. Patient is getting 2 L of IV fluid bolus. Patient is dehydrated from hyperglycemia that could explain his weight loss in spite of eating and drinking good. 5:15 PM blood test results are back. Patient's blood glucose once again is quite elevated. Sodium is low but corrected sodium is 134 mEq per liter. Beta hydroxybutyrate is high and anion gap is slightly elevated. Based on that I would like the patient to be admitted. Awaiting for the hospitalist to call back. Repeat blood sugar was 383. I will order 2 more liters of IV fluid bolus. Critical Care Narrative Aggregate critical care time was 30 minutes. Time to perform other separately billable procedures was not included in the critical care time. My time did not include minutes spent treating any other patients simultaneously or on activities that did not directly contribute to the patient's treatment. The services I provided to this patient were to treat and/or prevent clinically significant deterioration that could result in: DKA, Insulin, fluid resuscitation I provided critical care services requiring my management, as noted below: Chart data review, documentation time, medication orders and management, vital sign assessments/reviewing monitor data, ordering and reviewing lab tests, ordering and interpreting/reviewing x-rays and diagnostic studies, care of the patient and discussion of the patient with the admitting physicians. Procedures EKG Prior to Arrival: No Diagnosis Primary Impression: DKA (diabetic ketoacidoses) Qualified Codes: E13.10 - Other specified diabetes mellitus with ketoacidosis without coma Admitting Information Admitting Physician Requests: Admit Scripts Lovastatin (Lovastatin) 20 Mg Tab 20 MG PO DAILY for Cholesterol Management, #30 TAB 0 Refills Prov: Chelsea Jean MD R2 06/07/17 Insulin Detemir Inj (Levemir Inj) 1,000 unit/ 10 ML Vial 12 UNITS SQ BIDAC for Blood Sugar Management, #1 VIAL 0 Refills Do not mix with any other Insulin. Prov: Chelsea Jean MD R2 06/07/17 Lisinopril (Lisinopril) 5 Mg Tab 5 MG PO DAILY, #30 TAB Prov: Chelsea Jean MD R2 06/07/17 Metformin (Metformin) 1,000 Mg Tab 1000 MG PO BIDPC for Blood Sugar Management, #60 TAB 0 Refills With meals Prov: Chelsea Jean MD R2 06/07/17 Parenteral Therapy Supplies (Sharpsafety Sharps Contai) 1 Mis Mis EA .ROUTE DIRECTED, #1 0 Refills Prov: Chelsea Jean MD R2 06/07/17 Glucocom Test Strips (Glucocom Test Strips) 1 Starla Starla EA .ROUTE DIRECTED for Blood Sugar Management, #1 Prov: Chelsea Jean MD R2 06/07/17 Lancets (Lancets) 1 Mis Mis EA .ROUTE DIRECTED for Blood Sugar Management, #1 0 Refills Prov: Chelsea Jean MD R2 06/07/17 Insulin Syringe/U-100/31G X 5/16" 1 ml (Insulin Syringe/U-100/31G X 5/16" 1 ml) 31 Gauge X 5/16" Mis EA .ROUTE DIRECTED for Blood Sugar Management, #1 0 Refills Prov: Chelsea Jean MD R2 06/07/17 Blood Glucose Monitoring W/Device (Glucocom Blood Glucose Mo W/Device) 1 Kit Kit KIT .ROUTE DIRECTED for Blood Sugar Management, #1 Prov: Chelsea Jean MD R2 06/07/17 Condition: Derick Post MD Jun 05, 2017 14:43
[2017-06-05] MEDS ORDERED: SODIUM CHLOR 0.9% 1000 ML INJ 1,000 ML IV ONE ×3 (14:57→17:30)
[2017-06-05] MEDS ORDERED: INSULIN HUMAN REGULAR 1,000 UNITS/10 ML VIAL SQ ONE (15:00)
[2017-06-05] MEDS ORDERED: SODIUM CHLORIDE 0.9% FLUSH 10 ML FLUSH IVF PRN (15:00)
[2017-06-05 15:20] LABS: BLOOD GAS VENOUS BASE EXCESS -6.2 mmol/L (-2-2); BLOOD GAS VENOUS HCO3 18 mmol/L (22-26); BLOOD GAS VENOUS O2 HGB SAT 73 % (70-76); BLOOD GAS VENOUS PCO2 34 mmHg (44-48); BLOOD GAS VENOUS PO2 41 mmHg (35-40); BLOOD GAS VENOUS pH 7.35 (7.360-7.400); CRITICAL VALUE NO; DRAW SITE CL; OXYGEN DEVICE RA; STAT YES; TEMP CORR TO 98.6
[2017-06-05 16:28] LABS: AUTOMATED NEUTROPHIL # 6.9 TH/MM3 (1.8-7.7); BASOPHIL % 0.2 % (0.0-2.0); EOSINOPHIL % 0.1 % (0.0-4.0); HEMATOCRIT 45.6 % (39.0-51.0); HEMO FLAGS DIFF FINAL; LYMPH % 17.9 % (9.0-44.0); LYMPHOCYTE # 1.7 TH/MM3 (1.0-4.8); MEAN CELL VOLUME 83.4 FL (80.0-100.0); MEAN CORPUSCULAR HEMOGLOBIN 27.5 PG (27.0-34.0); MONO % 10.7 % (0.0-8.0); NEUT % 71.1 % (16.0-70.0); PLATELET COUNT 268 TH/MM3 (150-450); RED BLOOD COUNT 5.47 MIL/MM3 (4.50-5.90); RED CELL DISTRIBUTION WIDTH 13.1 % (11.6-17.2); WHITE BLOOD COUNT 9.7 TH/MM3 (4.0-11.0)
[2017-06-05 16:32] LABS: BLOOD, URINE NEG (NEG); GLUCOSE,URINE 1000 mg/dL (NEG); KETONE, URINE 80 mg/dL (NEG); NITRITE,URINE NEG (NEG); URINE COLOR LIGHT-YELLOW (YELLW/STRAW)
[2017-06-05 16:38] LABS: COMMENT (UR) CULT NOT INDICATED; CULTURE IF INDICATED CULT NOT INDICATED
[2017-06-05 17:06] LABS: ALKALINE PHOSPHATASE 117 U/L (45-117); ALT (GPT) 22 U/L (12-78); ANION GAP 16 MEQ/L (5-15); AST (GOT) 14 U/L (15-37); BETA-HYDROXYBUTYRATE 3.91 MMOL/L (0.00-0.39); BICARBONATE 17.1 MEQ/L (21.0-32.0); BLOOD UREA NITROGEN 33 MG/DL (7-18); CHLORIDE 90 MEQ/L (98-107); GLOMERULAR FILTRATION RATE 43 ML/MIN (>89); POTASSIUM 4.8 MEQ/L (3.5-5.1); TOTAL BILIRUBIN ADULT 0.9 MG/DL (0.2-1.0)
[2017-06-05 17:11] LABS: SODIUM (NA) 123 MEQ/L (136-145)
--- NOTE | 2017-06-05 17:47 | HHI.HP ---
[facility] Service Family Medicine Primary Care Physician Bebeto Elizabeth MD Admission Diagnosis DKA Diagnoses: International Travel<30 Days: No Contact w/Intl Traveler<30days: No Known Affected Area: No History of Present Illness Patient is a 46 year old male with no reported past medical history that presents to the [place] ED with chief complaints of dizziness, fatigue, increased thirst, and increased urination that began on Wednesday after he had a steroid shot and manipulation of his right elbow. Patient fractured his bilateral elbows in September 2016 and ORIF was performed here at [facility]. He followed up with orthopedic surgeon Dr. Elizabeth's office on Saturday 06/02 with manipulation of his right elbow was performed and a hydrocortisone shots was administered. Since then, patient states that he started feeling ill with increased thirst and increased urination, let him to present to the ED today. Patient states that he has had a 14 pound weight loss since Wednesday but denies nausea, vomiting, abdominal pain, chest pain, or shortness of breath. Patient does not believe that he has diabetes, stating that he thinks the elevated glucose was precipitated by the hydrocortisone shot. He states that he had a similar issue with hyperglycemia when he was admitted in September. Patient' s at bedside states that the walk 2 hours daily and eats very healthy. They do not understand how he could have diabetes. (Juany Crisostomo MD R2) Review of Systems Constitutional: COMPLAINS OF: Weight loss, Dizziness, DENIES: Fever, Chills, Night Sweats Eyes: COMPLAINS OF: Blurred vision, DENIES: Vision loss Ears, nose, mouth, throat: DENIES: Throat pain (lost voice), Running Nose Respiratory: DENIES: Cough, Shortness of breath Cardiovascular: DENIES: Chest pain, Syncope Gastrointestinal: DENIES: Abdominal pain, Constipation, Diarrhea, Nausea Genitourinary: COMPLAINS OF: Urinary frequency, Dysuria Musculoskeletal: COMPLAINS OF: Joint pain, Muscle aches Integumentary: DENIES: Pruritus, Rash Hematologic/lymphatic: DENIES: Bruising Neurologic: DENIES: Headache, Poor Balance ( ) Psychiatric: COMPLAINS OF: Anxiety, Confusion (Juany Crsiostomo MD R2) Past Family Social History Past Medical History Patient denies significant medical history. However patient's A1c in September 2016 was 9.5 which is consistent with diabetes mellitus Past Surgical History Right elbow ORIF in September 2013 at [facility] Reported Medications Reported Meds & Active Scripts Active No Active Prescriptions or Reported Medications (Juany Crisostomo MD R2) Allergies: Coded Allergies: acetaminophen (Verified Allergy, Severe, dizziness and confusion, 06/05/17) hydrocodone (Verified Allergy, Severe, dizziness and confusion, 06/05/17) morphine (Verified Allergy, Severe, rapid heart rate, 06/05/17) Family History No family history of diabetes or hypertension Social History Lives in [place] with 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 SKIN: No rashes, ecchymoses or lesions. Cool and dry. HEAD: Atraumatic. Normocephalic. No temporal or scalp tenderness. EYES: Pupils equal round and reactive. Extraocular motions intact. No scleral icterus. No injection or drainage. ENT: Nose without bleeding, purulent drainage or septal hematoma. Throat without erythema, tonsillar hypertrophy or exudate. Uvula midline. Airway patent. NECK: Trachea midline. No JVD or lymphadenopathy. Supple, nontender, no meningeal signs. CARDIOVASCULAR: Regular rate and rhythm without murmurs, gallops, or rubs. RESPIRATORY: Clear to auscultation. Breath sounds equal bilaterally. No wheezes , rales, or rhonchi. GASTROINTESTINAL: Abdomen soft, non-tender, nondistended. No hepato-splenomegaly , or palpable masses. No guarding. MUSCULOSKELETAL: Decreased range of motion of right elbow. Lower extremities without clubbing, cyanosis, or edema. No joint tenderness, effusion, or edema noted. No calf tenderness. Negative Homans sign bilaterally. NEUROLOGICAL: Awake and alert. Cranial nerves II through XII intact. Motor and sensory grossly within normal limits. Five out of 5 muscle strength in all muscle groups. Normal speech. Finger to nose intact Laboratory Laboratory Tests Test 06/05/17 15:02 06/05/17 15:30 06/05/17 15:50 Blood Gas Puncture Site CL Blood Gas Patient Temperature 98.6 Venous Blood pH 7.35 Venous Blood Partial Pressure CO2 34 Venous Blood Partial Pressure O2 41 Venous Blood HCO3 18 Venous Blood Oxygen Saturation 73 Venous Blood Oxygen Content 15.0 Venous Blood Base Excess -6.2 Oxygen Delivery Device RA White Blood Count 9.7 Red Blood Count 5.47 Hemoglobin 15.1 Hematocrit 45.6 Mean Corpuscular Volume 83.4 Mean Corpuscular Hemoglobin 27.5 Mean Corpuscular Hemoglobin Concent 33.0 Red Cell Distribution Width 13.1 Platelet Count 268 Mean Platelet Volume 9.7 Neutrophils (%) (Auto) 71.1 Lymphocytes (%) (Auto) 17.9 Monocytes (%) (Auto) 10.7 Eosinophils (%) (Auto) 0.1 Basophils (%) (Auto) 0.2 Neutrophils # (Auto) 6.9 Lymphocytes # (Auto) 1.7 Monocytes # (Auto) 1.0 Eosinophils # (Auto) 0.0 Basophils # (Auto) 0.0 CBC Comment DIFF FINAL Differential Comment Blood Urea Nitrogen 33 Creatinine 1.73 Random Glucose 557 Total Protein 8.8 Albumin 4.4 Calcium Level 8.9 Alkaline Phosphatase 117 Aspartate Amino Transf (AST/SGOT) 14 Alanine Aminotransferase (ALT/SGPT) 22 Total Bilirubin 0.9 Sodium Level 123 Potassium Level 4.8 Chloride Level 90 Carbon Dioxide Level 17.1 Anion Gap 16 Estimat Glomerular Filtration Rate 43 B-Hydroxybutyrate 3.91 Urine Color LIGHT-YELLOW Urine Turbidity CLEAR Urine pH 6.0 Urine Specific [place] 1.024 Urine Protein NEG Urine Glucose (UA) 1000 Urine Ketones 80 Urine Occult Blood NEG Urine Nitrite NEG Urine Bilirubin NEG Urine Urobilinogen LESS THAN 2.0 Urine Leukocyte Esterase NEG Urine WBC LESS THAN 1 Microscopic Urinalysis Comment CULT NOT INDICATED (Juany Crisostomo MD R2) Result Diagram: 06/05/17 1530 06/05/17 1530 Course Patient received 2 normal saline 1 L boluses in the ED. 10 units of regular subcutaneous insulin was administered. (Juany Crisostomo MD R2) Caprini VTE Risk Assessment Caprini VTE Risk Assessment: No/Low Risk (score <= 1) Caprini Risk Assessment Model Point Value = 1 Point Value = 2 Point Value = 3 Point Value = 5 Age 41-60 Minor surgery BMI > 25 kg/m2 Swollen legs Varicose veins or History of unexplained or recurrent spontaneous Oral contraceptives or hormone replacement Sepsis (< 1 month) Serious lung disease, including pneumonia (< 1 month) Abnormal pulmonary function Acute myocardial infarction Congestive heart failure (< 1 month) History of inflammatory bowel disease Medical patient at bed rest Age 61-74 Arthroscopic surgery Major open surgery (> 45 min) Laparoscopic surgery (> 45 min) Malignancy Confined to bed (> 72 hours) Immobilizing plaster cast Central venous access Age >= 75 History of VTE Family history of VTE Factor V Leiden Prothrombin [id number] Lupus anticoagulant Anticardiolipin antibodies Elevated serum homocysteine Heparin-induced thrombocytopenia Other congenital or acquired thrombophilia Stroke (< 1 month) Elective arthroplasty Hip, pelvis, or leg fracture Acute spinal cord injury (< 1 month) Prophylaxis Regimen Total Risk Factor Score Risk Level Prophylaxis Regimen 0-1 Low Early ambulation 2 Moderate Order ONE of the following: *Sequential Compression Device (SCD) *Heparin 5000 units SQ BID 3-4 Higher Order ONE of the following medications: *Heparin 5000 units SQ TID *Enoxaparin/Lovenox 40 mg SQ daily (WT < 150 kg, CrCl > 30 mL/min) *Enoxaparin/Lovenox 30 mg SQ daily (WT < 150 kg, CrCl > 10-29 mL/min) *Enoxaparin/Lovenox 30 mg SQ BID (WT < 150 kg, CrCl > 30 mL/min) AND/OR *Sequential Compression Device (SCD) 5 or more Highest Order ONE of the following medications: *Heparin 5000 units SQ TID (Preferred with Epidurals) *Enoxaparin/Lovenox 40 mg SQ daily (WT < 150 kg, CrCl > 30 mL/min) *Enoxaparin/Lovenox 30 mg SQ daily (WT < 150 kg, CrCl > 10-29 mL/min) *Enoxaparin/Lovenox 30 mg SQ BID (WT < 150 kg, CrCl > 30 mL/min) AND *Sequential Compression Device (SCD) (Juany Crisostomo MD R2) Assessment and Plan Assessment and Plan 46 year old male with known history of diabetes presents in diabetic ketoacidosis. He will be admitted to the hospital for management of DKA with IV fluids and subcutaneous insulin. Code Status Full code Discussed Condition With Seen and examined with Dr. Tom. Will discuss with Dr. Gutiérrez (Juany Crisostomo MD R2) Attending Attestation The patient has been seen and examined. The chart and all resident notes have been reviewed. I agree that inpatient care is appropriate and that a two midnight stay is expected for the reasons documented in the resident history and physical. I have discussed this with the resident and certify the resident s order for inpatient admission. (Nelsy Gutirérez MD) Problem List: (1) DKA (diabetic ketoacidoses) ICD Codes: E13.10 - Other specified diabetes mellitus with ketoacidosis without coma Status: Acute Plan: -Patient did not meet SIRS criteria on admission. Pulse of 91 and WBC of 9.7 -DKA was supported by the following objective measurements: * VBG pH 7.35 with 18 bicarbonate * Random glucose on CMP was 557 with beta hydroxybutyrate elevated at 3.91, anion gap was elevated at 16 * UA was positive for 1000 glucose -Administered 2 normal saline boluses in the ED -Received 10 units regular subcutaneous insulin in the ED Plan -Continue normal saline at 250 MLS/hr -Administer 10 units Levemir subcutaneous -Based on mild nature of DKA, okay to admit to floor with every 2 hours Accu- Cheks and short acting supplemental insulin -Currently nothing by mouth, check if ready to eat once glucose is below 250, cover with regular Novolin insulin -BMP every 2 hours, replace potassium as needed -Recheck beta hydroxybutyrate -Will check magnesium and phosphorus (2) Acute kidney injury ICD Codes: N17.9 - Acute kidney failure, unspecified Status: Acute Plan: -Creatinine 1.73 on admission, baseline 0.90 in September 2016 -Most likely due to acute prerenal kidney injury from dehydration -Continue fluids as above -Monitor with serial BMPs (3) Hyponatremia ICD Codes: E87.1 - Hypo-osmolality and hyponatremia Status: Acute Plan: -Sodium and 123 on admission -134 when corrected for hyperglycemia -Expected to correct with fluids as above (4) Diabetes mellitus ICD Codes: E11.9 - Type 2 diabetes mellitus without complications Status: Chronic Plan: -Patient denies chronic history of diabetes but A1c in September 2016 was 9.5 -Will recheck A1c -Once patient is clear DKA, we will continue low dose short-acting insulin sliding scale -Start Levemir accordingly -religious educator consulted -Patient will need to establish care with a primary care physician for outpatient insulin management (5) FEN/DVT PPX/GI PPX/Nursing Orders Plan: Fluids: NS @ 250 mls/hr IV Electrolytes: Will monitor and replace as needed Nutrition: Nothing by mouth currently, resume diabetic diet once serum glucose stabilizes DVT Prophylaxis: Bilateral SCDs, Heparin subcutaneous Q8h GI Prophylaxis: Protonix 40mg PO daily, Famotidine 10 mg IV every 12 hours Constipation prophylaxis: None currently PRN Medications Ibuprofen 400 mg by mouth every 6 hours when necessary pain 1-10 or temperature greater than 100.4F Zofran 4 mg IV push every 6 hours when necessary nausea vomiting -Vitals Q4h -Monitor I's and O's -Fall precautions -residential monitor with telemetry with continuous vital signs -Activity bed rest -Case management consult to assist with discharge disposition Disposition: Plan to discharge in the next 1-2 days once clinically stable with complete resolution of DKA (Juany Crisostomo MD R2) Physician Certification 2 Midnight Certification Type: Admission for Inpatient Services Order for Inpatient Services The services are ordered in accordance with Medicare regulations or non- Medicare payer requirements, as applicable. In the case of services not specified as inpatient-only, they are appropriately provided as inpatient services in accordance with the 2-midnight benchmark. Estimated LOS (days): 3 days is the estimated time the patient will need to remain in the hospital, assuming treatment plan goals are met and no additional complications. Post-Hospital Plan: Home (Juany Crisostomo MD R2) Problem Qualifiers (1) DKA (diabetic ketoacidoses): Qualified Codes: E13.10 - Other specified diabetes mellitus with ketoacidosis without coma Juany Crisostomo MD R2 Jun 05, 2017 17:47 Nelsy Gutiérrez MD Jun 06, 2017 20:40
[2017-06-05] MEDS ORDERED: POTASSIUM CHLOR 20 MEQ PREMIX 100 ML IV PRN ×4 (18:30)
[2017-06-05] MEDS ORDERED: ONDANSETRON HCL 4 MG/2 ML VIAL IVP PRN (19:00)
[2017-06-05] MEDS ORDERED: DEXTROSE 50% IN WATER 50 ML VIAL(D50) IV PUSH PRN (19:00)
[2017-06-05] MEDS ORDERED: IBUPROFEN 400 MG TAB PO PRN (19:00)
[2017-06-05] MEDS ORDERED: GLUCAGON 1 MG/ML VIAL OTHER PRN (19:00)
[2017-06-05 19:13] LABS: MAGNESIUM 2.2 MG/DL (1.5-2.5)
[2017-06-05] MEDS: INSULIN DETEMIR 100 UNITS/ML VIAL SQ SCH ×2 (19:24→21:00)
[2017-06-05] MEDS: SODIUM CHLOR 0.9% 1000 ML INJ 1,000 ML IV SCH ×2 (19:24→21:11)
[2017-06-05] MEDS ORDERED: INSULIN ASPART SUPPLEMENTAL SCALE SQ SCH (21:00)
[2017-06-05 21:11] LABS: HDL CHOLESTEROL 40.2 MG/DL (40.0-60.0)
[2017-06-05] MEDS: HEPARIN SODIUM - SQ 10,000 UNITS/ML VIAL SQ SCH (21:11)
[2017-06-05 22:36] LABS: BICARBONATE 19.3 MEQ/L (21.0-32.0); POTASSIUM 3.9 MEQ/L (3.5-5.1)
[2017-06-05] MEDS ORDERED: DEXT 5%-NACL 0.9% 1000 ML INJ 1,000 ML IV SCH (23:22)
[2017-06-06] VITALS (7 sets, daily range): BP systolic 107–119; BP diastolic 67–79; PULSE 67–81; RESP 16–18; TEMP 98.4–98.6; O2SAT 96–99
[2017-06-06] MEDS ORDERED: POTASSIUM PHOSPHATE MONOBASIC 500 MG TAB PO ONE (00:30)
[2017-06-06] MEDS: SODIUM CHLOR 0.9% 1000 ML INJ 1,000 ML IV SCH ×3 (00:59→20:31)
[2017-06-06 01:06] LABS: BLOOD GAS VENOUS HCO3 20 mmol/L (22-26); BLOOD GAS VENOUS O2 CONTENT 15.4 Vol % (9.0-17.0); BLOOD GAS VENOUS O2 HGB SAT 85 % (70-76); BLOOD GAS VENOUS PCO2 35 mmHg (44-48); BLOOD GAS VENOUS PO2 54 mmHg (35-40); BLOOD GAS VENOUS pH 7.38 (7.360-7.400); TEMP CORR TO 98.6
[2017-06-06 01:07] LABS: CRITICAL VALUE NO; FIO2 21 %; OXYGEN DEVICE ROOM AIR; STAT YES
[2017-06-06] MEDS: INSULIN NovoLIN REGULAR SUPPLEMENTAL SCALE SQ SCH ×2 (01:55→04:09)
[2017-06-06 02:00] LABS: BETA-HYDROXYBUTYRATE 2.3 MMOL/L (0.00-0.39); BICARBONATE 21.2 MEQ/L (21.0-32.0); POTASSIUM 3.9 MEQ/L (3.5-5.1)
[2017-06-06] MEDS ORDERED: INSULIN NovoLIN REGULAR SUPPLEMENTAL SCALE SQ SCH (04:00)
[2017-06-06] MEDS: HEPARIN SODIUM - SQ 10,000 UNITS/ML VIAL SQ SCH ×3 (04:09→20:23)
[2017-06-06] MEDS ORDERED: INSULIN DETEMIR 100 UNITS/ML VIAL SQ ONE (04:45)
[2017-06-06 06:44] LABS: BETA-HYDROXYBUTYRATE 1.18 MMOL/L (0.00-0.39); BICARBONATE 22.1 MEQ/L (21.0-32.0); MAGNESIUM 2.1 MG/DL (1.5-2.5); POTASSIUM 3.7 MEQ/L (3.5-5.1)
[2017-06-06] MEDS: INSULIN ASPART SUPPLEMENTAL SCALE SQ SCH ×4 (08:00→20:27)
[2017-06-06] MEDS: INSULIN DETEMIR 100 UNITS/ML VIAL SQ SCH ×2 (09:00→20:27)
--- NOTE | 2017-06-06 10:24 | HHI.FPPN ---
Subjective Subjective Patient seen and examined. Case reviewed and discussed Please refer to resident H&P for further details regarding HPI, ROS, PMH, SurgHx , Fh and SocHx In summary, patient is a 46yo male without known medical history presenting with DKA Patient was noted to have A1c of 9.5 during hospitalization in September of this year. Patient seen in his hospital bed this am, feeling significantly improved from admission at the bedside No further vomiting, glucose downtrending, AG closed. [facility] Objective Objective Laboratory Tests - Abnormals Test 06/05/17 15:02 06/05/17 15:30 06/05/17 15:50 06/05/17 21:44 Venous Blood pH 7.35 Venous Blood Partial Pressure CO2 34 mmHg Venous Blood Partial Pressure O2 41 mmHg Venous Blood HCO3 18 mmol/L Venous Blood Base Excess -6.2 mmol/L Neutrophils (%) (Auto) 71.1 % Monocytes (%) (Auto) 10.7 % Monocytes # (Auto) 1.0 TH/MM3 Blood Urea Nitrogen 33 MG/DL 26 MG/DL Creatinine 1.73 MG/DL Random Glucose 557 MG/DL 292 MG/DL Total Protein 8.8 GM/DL Aspartate Amino Transf (AST/SGOT) 14 U/L Sodium Level 123 MEQ/L 135 MEQ/L Chloride Level 90 MEQ/L Carbon Dioxide Level 17.1 MEQ/L 19.3 MEQ/L Anion Gap 16 MEQ/L Estimat Glomerular Filtration Rate 43 ML/MIN 88 ML/MIN Triglycerides Level 447 MG/DL Cholesterol Level 237 MG/DL B-Hydroxybutyrate 3.91 MMOL/L Urine Glucose (UA) 1000 mg/dL Urine Ketones 80 mg/dL Calcium Level 7.9 MG/DL Phosphorus Level 2.2 MG/DL Test 06/06/17 00:45 06/06/17 00:55 06/06/17 05:49 Venous Blood Partial Pressure CO2 35 mmHg Venous Blood Partial Pressure O2 54 mmHg Venous Blood HCO3 20 mmol/L Venous Blood Oxygen Saturation 85 % Venous Blood Base Excess -4.0 mmol/L Blood Urea Nitrogen 21 MG/DL Random Glucose 271 MG/DL 230 MG/DL Calcium Level 7.8 MG/DL 7.9 MG/DL Sodium Level 135 MEQ/L 135 MEQ/L B-Hydroxybutyrate 2.30 MMOL/L 1.18 MMOL/L Phosphorus Level 2.3 MG/DL Vital Signs 06/05/17 06/05/17 06/05/17 06/05/17 14:16 14:53 15:17 16:00 Temp 98.4 Pulse 92 91 84 Resp 20 16 16 16 B/P (MAP) 135/88 (104) 126/84 (98) Pulse Ox 98 98 100 O2 Delivery Room Air Room Air Room Air 06/05/17 06/05/17 06/05/17 06/05/17 17:00 19:17 20:00 20:00 Temp 98.8 Pulse 92 89 83 Resp 16 17 18 B/P (MAP) 121/75 (90) 120/73 (89) 118/68 (85) Pulse Ox 100 98 98 O2 Delivery Room Air Room Air Room Air 06/05/17 06/06/17 06/06/17 06/06/17 20:38 00:00 00:00 04:00 Temp 98.6 98.4 Pulse 84 81 70 Resp 18 16 B/P (MAP) 119/69 (86) 112/79 (90) Pulse Ox 99 98 O2 Delivery Room Air 06/06/17 06/06/17 04:00 08:00 Temp 98.5 Pulse 75 Resp 18 B/P (MAP) 109/67 (81) Pulse Ox 97 O2 Delivery Room Air Physical exam GENERAL: wdwn male, resting in bed, NAD SKIN: Warm and dry. NO rashes HEAD: Normocephalic. AT EYES: No scleral icterus. No injection or drainage. ENT: OP clear. Mmm NECK: Supple, trachea midline. No JVD or lymphadenopathy. CARDIOVASCULAR: Regular rate and rhythm without murmurs, gallops, or rubs. RESPIRATORY: Breath sounds equal bilaterally. No accessory muscle use. GASTROINTESTINAL: Abdomen soft, non-tender, nondistended. MUSCULOSKELETAL: No cyanosis, or edema. NO calf tenderness BACK: Nontender without obvious deformity. No CVA tenderness. NEURO: Awake and alert. Normal speech. CN grossly intact. Assessment Assessment DKA, precipitated by steroid injection Uncontrolled DM Medical nonadherence Hyperlipidemia Acute renal injury Pseudohyponatremia s/p ORIF R elbow PLAN PLAN DKA Protocol IVF resuscitation Diabetic education Serial BMP Counseled on lifestyle modifications PT/OT for post-op Transition to basal insulin Start ABAD, statin Patient seen and examined with the resident team. Case reviewed and discussed Agree with plan of care as discussed with me and documented in the resident note. Nelsy Gutiérrez MD Jun 06, 2017 10:24
[2017-06-06 11:46] LABS: HEMOGLOBIN A1a 1.5 %; HEMOGLOBIN A1b 1.1 %; HEMOGLOBIN F 2.1 %; HEMOGLOBIN LA1C 4.5 %
--- NOTE | 2017-06-06 14:00 | EKG ---
Date Performed: 06/05/2017 Time Performed: 15:12:42 PTAGE: 46 years EKG: Sinus rhythm , HR OF 91 BPM NORMAL ECG NO PREVIOUS TRACING DOCTOR: Matthew Anton Interpretating Date/Time 06/06/2017 13:58:42
[2017-06-06] MEDS: metFORMIN HCL 500 MG TAB PO SCH (18:04)
[2017-06-06] MEDS ORDERED: ATORVASTATIN 40 MG TAB PO SCH (21:00)
[2017-06-07] VITALS: BP 107/68; PULSE 72; RESP 18; TEMP 97.8; O2SAT 96
[2017-06-07] MEDS: SODIUM CHLOR 0.9% 1000 ML INJ 1,000 ML IV SCH (03:09)
[2017-06-07] MEDS: HEPARIN SODIUM - SQ 10,000 UNITS/ML VIAL SQ SCH ×2 (03:22→12:37)
[2017-06-07 04:00] VITALS: BP 109/67; PULSE 68; RESP 16; TEMP 97.6; O2SAT 97
[2017-06-07] MEDS: INSULIN ASPART SUPPLEMENTAL SCALE SQ SCH ×2 (08:49→12:34)
[2017-06-07] MEDS: INSULIN DETEMIR 100 UNITS/ML VIAL SQ SCH (08:56)
[2017-06-07] MEDS: metFORMIN HCL 500 MG TAB PO SCH (08:57)
[2017-06-07] MEDS ORDERED: LISINOPRIL 5 MG TAB PO SCH (09:00)
[2017-06-07 10:09] LABS: BICARBONATE 22.6 MEQ/L (21.0-32.0); POTASSIUM 3.9 MEQ/L (3.5-5.1)
[2017-06-07 10:10] LABS: BETA-HYDROXYBUTYRATE 1.61 MMOL/L (0.00-0.39)
[2017-06-07 12:00] VITALS: BP 107/66; PULSE 77; RESP 16; TEMP 98.3; O2SAT 97
--- NOTE | 2017-06-07 13:50 | HHI.DCPOC ---
Discharge Care Plan Diagnosis: (1) Hyperlipidemia (2) Diabetes mellitus, new onset Goals to Promote Your Health * To prevent worsening of your condition and complications * To maintain your health at the optimal level Directions to Meet Your Goals Take your medications as prescribed Follow your dietary instruction Follow activity as directed Keep your appointments as scheduled Take your immunizations and boosters as scheduled If your symptoms worsen call your PCP, if no PCP go to Urgent Care Center or Emergency Room Smoking is Dangerous to Your Health. Avoid second hand smoke Call the 24-hour hour crisis hotline for domestic abuse at [place] Jean MD R2 Jun 07, 2017 13:50 Nelsy Gutiérrez MD Jun 07, 2017 15:09
[2017-06-07] MEDS ORDERED: GLUCTES12 (13:53)
[2017-06-07] MEDS ORDERED: GLUCKIT15 (13:53)
[2017-06-07] MEDS ORDERED: LANCETS1 MI1 (13:53)
[2017-06-07] MEDS ORDERED: INSU1MIS15 (13:53)
[2017-06-07] MEDS ORDERED: METF1000 PO (13:53)
[2017-06-07] MEDS ORDERED: BIOM30MI (13:53)
[2017-06-07] MEDS ORDERED: LOVA20TA PO (13:58)
[2017-06-07] MEDS ORDERED: LEVEMIR SQ (13:58)
[2017-06-07] MEDS ORDERED: LISI-519 PO (13:58)
--- NOTE | 2017-06-07 14:23 | HHI.FPPN ---
Subjective Remarks Patient was seen and examined this morning. The status machine adjuster leader service was used for [place] interpretation, with machine adjuster leader Zohaib [id number]. The patient is feeling well and states he is ready to go home. He denies any new symptoms this morning and states that symptoms he had on admission have resolved. He states he was unaware he had diabetes and high cholesterol up until this point. He endorses he plans to follow-up with a primary care physician. Review of systems performed and otherwise negative. (Chelsea Jean MD R2) Objective Vitals Vital Signs Date Time Temp Pulse Resp B/P (MAP) Pulse Ox O2 Delivery O2 Flow Rate FiO2 06/07/17 12:00 98.3 77 16 107/66 (80) 97 06/07/17 08:00 Room Air 06/07/17 04:00 97.6 68 16 109/67 (81) 97 06/07/17 00:00 97.8 72 18 107/68 (81) 96 06/06/17 20:35 98.6 75 18 107/67 (80) 97 06/06/17 20:33 Room Air 06/06/17 19:59 74 06/06/17 16:00 98.6 81 18 113/73 (86) 97 I/O 06/06/17 06/06/17 06/06/17 06/07/17 06/07/17 06/07/17 07:00 15:00 23:00 07:00 15:00 23:00 Intake Total 2359 ml 2200 ml 1648 ml Output Total 1350 ml Balance 1009 ml 2200 ml 1648 ml Intake Oral 360 ml 1200 ml 240 ml IV Total 1999 ml 1000 ml 1408 ml Output Urine Total 1350 ml # Voids 3 4 # Bowel Movements 1 0 0 (Chelsea Jean MD R2) Result Diagram: 06/05/17 1530 06/07/17 0745 Objective Remarks GENERAL: Well-appearing male walking around the room with no distress. He is pleasant. SKIN: Warm and dry. No rashes or bruises. HEAD: Atraumatic. Normocephalic. EYES: Pupils equal and round. No scleral icterus. No injection or drainage. ENT: No nasal bleeding or discharge. Mucous membranes pink and moist. NECK: Trachea midline. No JVD. CARDIOVASCULAR: Regular rate and rhythm. No murmurs, gallops, rubs. No signs of fluid overload and no LE edema. RESPIRATORY: No accessory muscle use. Clear to auscultation. Breath sounds equal bilaterally. No wheezes or rhonchi. GASTROINTESTINAL: Abdomen soft, non-tender, nondistended. Hepatic and splenic margins not palpable. MUSCULOSKELETAL: Extremities without clubbing, cyanosis, or edema. No obvious deformities. NEUROLOGICAL: Awake and alert. No obvious cranial nerve deficits. Motor grossly within normal limits. Grossly normal strength.. Normal speech. PSYCHIATRIC: Appropriate mood and affect; insight and judgment normal. Medications and IVs Inpatient Medications Atorvastatin Calcium (Lipitor) 40 mg HS PO Last administered on 06/06/17 20:23 ; Start 06/06/17 at 21:00 Dextrose (D50w (Vial) Inj) 50 ml UNSCH PRN IV PUSH HYPOGLYCEMIA-SEE COMMENTS; Start 06/05/17 at 19:00 Dextrose/Sodium Chloride 1,000 ml @ 200 mls/hr Q5H IV ; Start 06/05/17 at 23:22 ; Stop 06/06/17 at 00:08; Status DC Glucagon (Glucagon Inj) 1 mg UNSCH PRN OTHER HYPOGLYCEMIA-SEE COMMENTS; Start 06/05/17 at 19:00 Heparin Sodium (Porcine) (Heparin Inj) 5,000 units Q8H SQ Last administered on 06/07/17 12:37; Start 06/05/17 at 20:00 Ibuprofen (Motrin) 400 mg Q6H PRN PO PAIN 1-10 OR TEMP >100.4F; Start 06/05/17 at 19:00 Insulin Aspart (NovoLOG SUPPLEMENTAL SCALE) 1 ACHS SLIDING SCALE SQ Last administered on 06/07/17 12:34; Start 06/06/17 at 08:00 Insulin Detemir (Levemir Inj) 10 units Q12HR SQ Last administered on 06/07/17 08:56; Start 06/06/17 at 09:00 Insulin Human Regular (NovoLIN R SUPPLEMENTAL SCALE) 1 Q4HR SQ Last administered on 06/06/17 04:09; Start 06/06/17 at 01:00; Stop 06/06/17 at 07:49 ; Status DC Insulin Human Regular (NovoLIN R INJ) 10 units ONCE ONCE SQ Last administered on 06/05/17 15:42; Start 06/05/17 at 15:00; Stop 06/05/17 at 15:01; Status DC Lisinopril (Prinivil) 5 mg DAILY PO Last administered on 06/07/17 08:57; Start 06/07/17 at 09:00 Metformin HCl (Glucophage) 500 mg BIDPC PO Last administered on 06/07/17 08:57 ; Start 06/06/17 at 18:00 Ondansetron HCl (Zofran Inj) 4 mg Q6H PRN IVP NAUSEA OR VOMITING; Start at 19:00 Potassium Phosphate (K-Phos) 500 mg ONCE ONCE PO Last administered on 00:35; Start 06/06/17 at 00:30; Stop 06/06/17 at 00:31; Status DC Potassium Chloride 100 ml @ 50 mls/hr Q2H PRN IV SEE LABEL COMMENTS; Start at 18:30 Sodium Chloride 1,000 ml @ 150 mls/hr Q6H40M IV Last administered on 03:09; Start 06/06/17 at 16:45 Sodium Chloride (NS Flush) 2 ml UNSCH PRN IVF FLUSH AFTER USING IV ACCESS Last administered on 06/05/17 15:43; Start 06/05/17 at 15:00 (Chelsea Jean MD R2) Urinary Catheter: No (Chelsea Jean MD R2) Vascular Central Line Catheter: No (Chelsea Jean MD R2) A/P Assessment and Plan 46-year-old male with known history of diabetes presents in diabetic ketoacidosis after recent corticosteroid joint injection. He was admitted for inpatient management of blood glucose levels and is now stable for discharge. Discharge Planning Discharge today with glucose supplies, metformin, long-acting insulin, statin, and counseling for follow-up for diabetes and hypercholesterolemia management. (Chelsea Jean MD R2) Problem List: (1) DKA (diabetic ketoacidoses) ICD Codes: E13.10 - Other specified diabetes mellitus with ketoacidosis without coma Status: Acute Plan: DKA resolved with IV insulin and IV fluid management. Anion gap closed on 06/06. Beta hydroxybutyrate overall trended down over course of admission with only mild increase in 06/07. VBG > 7.3 on admission, suggesting mild DKA. He was aggressively hydrated with normal saline. Further management included initiation on metformin 500 twice a day, Levemir 10 units twice a day, and supplemental insulin for which he required approximately 20 units in the last 24 hours. Patient is eager to go home and is counseled to have close follow-up with a primary care physician. Plan: -We'll discharge home with metformin 1000 mg BID, Levemir 12 units BID, diabetic testing supplies, insulin administration supplies -He is self-pay, therefore it will be difficult for him to afford branded insulin and may benefit from more cost effective treatment options as outpatient. -Diabetic diet (2) Acute kidney injury ICD Codes: N17.9 - Acute kidney failure, unspecified Status: Resolved Plan: Resolved. Creatinine 0.59 this morning. BUN is normal. Likely AK was due to prerenal azotemia (dehydration) (3) Hyponatremia ICD Codes: E87.1 - Hypo-osmolality and hyponatremia Status: Resolved Plan: Mild. Related to hyperglycemia, and now resolved. (4) Diabetes mellitus ICD Codes: E11.9 - Type 2 diabetes mellitus without complications Status: Chronic Plan: A1c 12.9 this hospital stay. Management as above for DKA. (5) Hyperlipidemia ICD Codes: E78.5 - Hyperlipidemia, unspecified Status: Acute Plan: Patient is to have a lipid profile as follows: Total cholesterol 237, triglycerides 447, LDL unable to detect due to TGs, HDL 40.2. He was started on high-dose atorvastatin this hospital stay but due to cost we will switch to pravastatin 20 mg daily, to be titrated as an outpatient. (6) FEN/DVT PPX/GI PPX/Nursing Orders Plan: Fluids: PO hydration Electrolytes: wnl on discharge Nutrition: Diabetic diet DVT Prophylaxis: Bilateral SCDs, Heparin subcutaneous Q8h while inpt GI Prophylaxis: D/C'd 06/07 Constipation prophylaxis: None currently (Chelsea Jean MD R2) Problem Qualifiers (1) DKA (diabetic ketoacidoses): Qualified Codes: E13.10 - Other specified diabetes mellitus with ketoacidosis without coma (2) Diabetes mellitus: Qualified Codes: E11.9 - Type 2 diabetes mellitus without complications (3) Hyperlipidemia: Qualified Codes: E78.2 - Mixed hyperlipidemia Chelsea Jean MD R2 Jun 07, 2017 14:23 Nelsy Gutiérrez MD Jun 07, 2017 15:56
--- NOTE | 2017-06-08 15:59 | HHI.DS ---
Discharge Summary Admission Date Jun 05, 2017 at 17:43 Discharge Date: Jun 07, 2017 Admitting Diagnosis DKA (1) DKA (diabetic ketoacidoses) Diagnosis: Principal Plan: DKA resolved with IV insulin and IV fluid management. Anion gap closed on 06/06. Beta hydroxybutyrate overall trended down over course of admission with only mild increase in 06/07. VBG > 7.3 on admission, suggesting mild DKA. He was aggressively hydrated with normal saline. Further management included initiation on metformin 500 twice a day, Levemir 10 units twice a day, and supplemental insulin for which he required approximately 20 units in the last 24 hours. Patient is eager to go home and is counseled to have close follow-up with a primary care physician. Plan: -We'll discharge home with metformin 1000 mg BID, Levemir 12 units BID, diabetic testing supplies, insulin administration supplies -He is self-pay, therefore it will be difficult for him to afford branded insulin and may benefit from more cost effective treatment options as outpatient. -Diabetic diet ICD Codes: E13.10 - Other specified diabetes mellitus with ketoacidosis without coma Status: Acute (2) Acute kidney injury Diagnosis: Secondary Plan: Resolved. Creatinine 0.59 this morning. BUN is normal. Likely AK was due to prerenal azotemia (dehydration) ICD Codes: N17.9 - Acute kidney failure, unspecified Status: Resolved (3) Hyponatremia Diagnosis: Secondary Plan: Mild. Related to hyperglycemia, and now resolved. ICD Codes: E87.1 - Hypo-osmolality and hyponatremia Status: Resolved (4) Diabetes mellitus Diagnosis: Secondary Plan: A1c 12.9 this hospital stay. Management as above for DKA. ICD Codes: E11.9 - Type 2 diabetes mellitus without complications Status: Chronic (5) Hyperlipidemia Diagnosis: Secondary Plan: Patient is to have a lipid profile as follows: Total cholesterol 237, triglycerides 447, LDL unable to detect due to TGs, HDL 40.2. He was started on high-dose atorvastatin this hospital stay but due to cost we will switch to pravastatin 20 mg daily, to be titrated as an outpatient. ICD Codes: E78.5 - Hyperlipidemia, unspecified Status: Acute Consultants None Procedures None Brief History Patient is a 46 year old male with no reported past medical history that presents to the [facility] ED with chief complaints of dizziness, fatigue, increased thirst, and increased urination that began on Wednesday after he had a steroid shot and manipulation of his right elbow. Patient fractured his bilateral elbows in September 2016 and ORIF was performed here at [facility]. He followed up with orthopedic surgeon Dr. Elizabeth's office on Saturday 06/02 with manipulation of his right elbow was performed and a hydrocortisone shots was administered. Since then, patient states that he started feeling ill with increased thirst and increased urination, let him to present to the ED today. Patient states that he has had a 14 pound weight loss since Wednesday but denies nausea, vomiting, abdominal pain, chest pain, or shortness of breath. Patient does not believe that he has diabetes, stating that he thinks the elevated glucose was precipitated by the hydrocortisone shot. He states that he had a similar issue with hyperglycemia when he was admitted in September. Patient' s at bedside states that the walk 2 hours daily and eats very healthy. They do not understand how he could have diabetes. CBC/BMP: 06/05/17 1530 06/07/17 0745 Significant Findings Laboratory Tests Test 06/05/17 15:50 06/05/17 21:44 06/06/17 00:45 06/06/17 00:55 Urine Glucose (UA) 1000 mg/dL (NEG) Urine Ketones 80 mg/dL (NEG) Blood Urea Nitrogen 26 MG/DL (7-18) 21 MG/DL (7-18) Random Glucose 292 MG/DL (74-106) 271 MG/DL (74-106) Calcium Level 7.9 MG/DL (8.5-10.1) 7.8 MG/DL (8.5-10.1) Phosphorus Level 2.2 MG/DL (2.5-4.9) Sodium Level 135 MEQ/L (136-145) 135 MEQ/L (136-145) Carbon Dioxide Level 19.3 MEQ/L (21.0-32.0) Estimat Glomerular Filtration Rate 88 ML/MIN (>89) Venous Blood Partial Pressure CO2 35 mmHg (44-48) Venous Blood Partial Pressure O2 54 mmHg (35-40) Venous Blood HCO3 20 mmol/L (22-26) Venous Blood Oxygen Saturation 85 % (70-76) Venous Blood Base Excess -4.0 mmol/L (-2-2) B-Hydroxybutyrate 2.30 MMOL/L (0.00-0.39) Test 06/06/17 05:49 06/07/17 07:45 Random Glucose 230 MG/DL (74-106) 238 MG/DL (74-106) Calcium Level 7.9 MG/DL (8.5-10.1) Phosphorus Level 2.3 MG/DL (2.5-4.9) Sodium Level 135 MEQ/L (136-145) B-Hydroxybutyrate 1.18 MMOL/L (0.00-0.39) 1.61 MMOL/L (0.00-0.39) Creatinine 0.59 MG/DL (0.60-1.30) PE at Discharge GENERAL: Well-appearing male walking around the room with no distress. He is pleasant. SKIN: Warm and dry. No rashes or bruises. HEAD: Atraumatic. Normocephalic. EYES: Pupils equal and round. No scleral icterus. No injection or drainage. ENT: No nasal bleeding or discharge. Mucous membranes pink and moist. NECK: Trachea midline. No JVD. CARDIOVASCULAR: Regular rate and rhythm. No murmurs, gallops, rubs. No signs of fluid overload and no LE edema. RESPIRATORY: No accessory muscle use. Clear to auscultation. Breath sounds equal bilaterally. No wheezes or rhonchi. GASTROINTESTINAL: Abdomen soft, non-tender, nondistended. Hepatic and splenic margins not palpable. MUSCULOSKELETAL: Extremities without clubbing, cyanosis, or edema. No obvious deformities. NEUROLOGICAL: Awake and alert. No obvious cranial nerve deficits. Motor grossly within normal limits. Grossly normal strength.. Normal speech. PSYCHIATRIC: Appropriate mood and affect; insight and judgment normal. Hospital Course 46M who is primarily [place]-speaking who presented with signs and symptoms suggestive of hyperglycemia. He was found to have serum glucose in the 600s and AG consistent with moderate DKA. Additional studies showed BHG elevation and JESÚS. Lipid profile noted to be abnormal. Patient was placed on IV insulin (not drip) given mild nature of laboratory findings. He was aggressively hydrated via IV fluids. Patient's labs normalized shortly after admission and , including normal AG the evening of admission. He was started on diabetic diet on Day 2 and home insulin regimen initiation occurred to include metformin and long-acting insulin. Blood sugars were in the 200s over the last 24hr, not optimized. However, patient was adamant regarding going home. He was started on lisinopril (low dose) for renal protection given DM, and was started on a statin for hyperlipidemia. Symptoms resolved by Day 2. Counseling was performed on date of discharge and Case Mgmt assisted in connecting patient to low-cost clinic for follow-up. Diabetic supplies were ordered in addition to Levemir and metformin. Patient was discharged home in stable condition. Pt Condition on Discharge: Stable Discharge Disposition: Discharge Home Discharge Instructions DIET: Follow Instructions for: Diabetic Diet Activities you can perform: Regular-No Restrictions Follow up Referrals: Diabetic Education PCP Follow-up - 1 Week New Medications: Blood Glucose Monitoring W/Device (Glucocom Blood Glucose Mo W/Device) 1 Kit Kit KIT .ROUTE DIRECTED for Blood Sugar Management, #1 Glucocom Test Strips (Glucocom Test Strips) 1 Starla Starla EA .ROUTE DIRECTED for Blood Sugar Management, #1 Insulin Detemir Inj (Levemir Inj) 1,000 unit/ 10 ML Vial 12 UNITS SQ BIDAC for Blood Sugar Management, #1 VIAL 0 Refills Do not mix with any other Insulin. Insulin Syringe/U-100/31G X 5/16" 1 ml (Insulin Syringe/U-100/31G X 5/16" 1 ml) 31 Gauge X 5/16" Mis EA .ROUTE DIRECTED for Blood Sugar Management, #1 0 Refills Lancets (Lancets) 1 Mis Mis EA .ROUTE DIRECTED for Blood Sugar Management, #1 0 Refills Lovastatin (Lovastatin) 20 Mg Tab 20 MG PO DAILY for Cholesterol Management, #30 TAB 0 Refills Metformin (Metformin) 1,000 Mg Tab 1000 MG PO BIDPC for Blood Sugar Management, #60 TAB 0 Refills With meals Parenteral Therapy Supplies (Sharpsafety Sharps Contai) 1 Mis Mis EA .ROUTE DIRECTED, #1 0 Refills Lisinopril (Lisinopril) 5 Mg Tab 5 MG PO DAILY, #30 TAB Chelsea Jean MD R2 Jun 08, 2017 15:59
== END 2017-06-07 15:21 | disposition home or self-care (01) | DRG 638 ==
LOC: NEPC 14:14 → NEDA 17:43 → N04B 19:45
PROVIDERS: ADMIT Family Medicine; ATTEND Family Medicine
DX: E13.10 Other specified diabetes mellitus with ketoacidosis without coma (principal); N17.9 Acute kidney failure, unspecified; E86.0 Dehydration; Z91.19 Patient's noncompliance with other medical treatment and regimen; E78.2 Mixed hyperlipidemia
CPT/HCPCS: 80048; 80053; 80061; 81001; 82010; 82805; 82948; 83036; 83735; 84100; 85025; 93005; 96360; 96361; 96372; J1644; J1815; J7030